=== PATIENT | male | born 1980 | race Caucasian/White ===

== ENCOUNTER 2022-03-16 16:07 | Outpatient (REF) | payer OTHER, SELFPAY ==
[2022-03-16 17:07] LABS: Alanine Aminotransferase 24 U/L (0-40); Albumin Level 4.3 g/dL (3.5-5.0); Alkaline Phosphatase 87 U/L (39-117); Anion Gap 14 (12-20); Aspartate Amino Transferase 20 U/L (5-37); Bilirubin Total 0.6 mg/dL (0.0-1.0); Blood Urea Nitrogen 15 mg/dL (9-16); C Reactive Protein 1.29 mg/dL (< or = 0.50); Carbon Dioxide 26 mmol/L (22-29); Chloride 106 mmol/L (96-108); Cholesterol 260 mg/dL; Estimated Glomerular Filt Rate > 60; Glucose Random 83 mg/dL (60-115); HDL Cholesterol 34 mg/dL; LDL Cholesterol Calculated 203 mg/dl; Potassium 4.4 mmol/L (3.3-5.1); Sodium 142 mmol/L (135-145); Total Protein 6.8 g/dL (6.5-8.0); Triglycerides 117 mg/dL
[2022-03-16 17:28] LABS: TSH reflex Free T4 2.88 uIU/mL (0.32-4.0)
[2022-03-16 17:39] LABS: Vitamin B12 347 pg/mL (200-900)
[2022-03-16 18:13] LABS: Estimated Average Glucose 97 mg/dL
[2022-03-19 19:53] LABS: Immunoglobulin A 266 mg/dL (47-310)
[2022-03-19 21:37] LABS: Transglutaminase IgA <1.0 U/mL
== END 2022-03-16 16:08 | disposition home or self-care (01) ==
LOC: HO.LAB 16:07
PROVIDERS: Visit Provider Internal Medicine
DX: R19.4 Change in bowel habit (principal); R19.7 Diarrhea, unspecified; K21.9 Gastro-esophageal reflux disease without esophagitis; E66.01 Morbid (severe) obesity due to excess calories; I10 Essential (primary) hypertension; K64.9 Unspecified hemorrhoids
CPT/HCPCS: 36415; 80053; 80061; 82607; 82746; 82784; 83036; 84443; 86140; 86364; 99202

== ENCOUNTER 2022-11-13 10:28 | Outpatient (REF) | payer OTHER, SELFPAY ==
--- NOTE | ~2022-11-13 | US_ITS ---
EXAMINATION: US ABDOMEN COMPLETE CLINICAL INFORMATION: Abdominal pain, GERD, change in bowel habits. COMPARISON: None available. TECHNIQUE: Real-time imaging of the abdominal viscera. FINDINGS: PANCREAS: Normal. ABDOMINAL AORTA: The proximal, mid, and distal segments are normal in caliber. INFERIOR VENA CAVA: Visualized portions are normal. LIVER: Diffuse increased echogenicity to the liver parenchyma with focal fatty sparing in the gallbladder fossa. Liver contour is smooth. No focal hepatic lesion. There is no intrahepatic biliary duct dilatation seen. GALLBLADDER: Normal. The gallbladder is physiologically distended without evidence of stones, sludge, polyps, wall thickening or pericholecystic fluid. COMMON BILE DUCT: Normal in caliber measuring 0.2 cm in diameter. RIGHT KIDNEY: Normal. No hydronephrosis. No renal calculi or focal parenchymal lesions. The kidney measures 13.0 cm in maximum dimension. LEFT KIDNEY: Normal. No hydronephrosis. No renal calculi or focal parenchymal lesions. The kidney measures 12.1 cm in maximum dimension. SPLEEN: The spleen measures 14.3 cm in maximum dimension. FREE FLUID: None. ADDITIONAL FINDINGS: Left lower quadrant region of pain was scanned. No sonographic abnormality identified. US/US abdomen complete IMPRESSION: Hepatic steatosis. Mild splenomegaly. No sonographic abnormality in the left lower quadrant where patient has pain
== END 2022-11-13 10:29 | disposition home or self-care (01) ==
LOC: HO.HMGCX 10:28
PROVIDERS: Visit Provider Internal Medicine
DX: R19.4 Change in bowel habit (principal)
CPT/HCPCS: 76700

== ENCOUNTER → 2022-11-19 15:40 | Outpatient (BNVA) | payer OTHER, SELFPAY | PROVIDERS: Visit Provider Internal Medicine | DX: R13.10 Dysphagia, unspecified (principal); R19.4 Change in bowel habit; R14.0 Abdominal distension (gaseous); K64.9 Unspecified hemorrhoids | CPT/HCPCS: 99212 ==

== ENCOUNTER 2022-12-12 11:11 | Outpatient (REF) | payer OTHER, SELFPAY ==
[2022-12-12 12:57] LABS: Hematocrit 42.8 % (42.0-52.0); Hemoglobin 14.8 g/dl (14.0-18.0); Mean Corpuscular HGB Conc 34.6 g/dl (31.0-36.0); Mean Corpuscular Hemoglobin 28.7 pg (27.0-33.0); Mean Corpuscular Volume 83.1 fL (80.0-98.0); Mean Platelet Volume 11.6 fL (9.4-12.4); Platelet Count 216 X10*3/uL (160-400); Red Blood Count 5.15 X10*6/uL (4.60-5.80); Red Cell Distribution Width 12.9 % (11.0-16.0); White Blood Count 9.1 X10*3/uL (4.8-10.8)
[2022-12-12 14:13] LABS: C Reactive Protein 2.99 mg/dL (< or = 0.50)
== END 2022-12-12 11:12 | disposition home or self-care (01) ==
LOC: HO.LAB 11:11
PROVIDERS: PCP Physician Assistant Medical; Visit Provider Internal Medicine
DX: K64.9 Unspecified hemorrhoids (principal)
CPT/HCPCS: 36415; 85027; 86140

== ENCOUNTER 2022-12-17 | Outpatient (REF) | payer OTHER, SELFPAY | END 2022-12-17 00:01 | disposition home or self-care (01) | LOC: HO.LNP | PROVIDERS: Visit Provider Internal Medicine | DX: K64.9 Unspecified hemorrhoids (principal) | CPT/HCPCS: 83993 ==

== ENCOUNTER 2022-12-27 13:15 | Day surgery (SDC) | payer OTHER, SELFPAY ==
--- NOTE | 2022-12-26 10:45 | HO.ANESPROP2 ---
HPI - Anesthesia Eval Consult details Narrative: 42yo M for Upper Endoscopy and Colonoscopy PMFSH Active Problems Active Problems: All Active Problems (Updated 11/20/22 @ 20:59 by Milly Tomas MD) Bloating (Acute) Dysphagia (Acute) Hypertension (Acute) Hemorrhoids (Acute) Morbid obesity (Acute) GERD (gastroesophageal reflux disease) (Acute) Change in bowel habit (Acute) Past Medical History Medical History GERD (gastroesophageal reflux disease) Hypertension Family History Family History Mother Diabetes Cancer Father Pacemaker Cancer Surgical History Surgical History History of esophagogastroduodenoscopy (EGD) Hx of colonoscopy Hx of hernia repair Social History Social History Household Members: Other Alcohol intake: never Patient Tobacco Use Status: Former Tobacco user Substance Use Type: Marijuana Meds Allergies Allergy/AdvReac Type Severity Reaction Status Date / Time No Known Allergies Allergy Verified 12/27/22 13:28 Home Medications Medication Instructions Recorded Confirmed Last Taken Type nortriptyline 10 mg capsule 10 mg PO BEDTIME 12/27/22 12/27/22 Unknown History Exam Exam Date and Time: December 26, 2022 1045 Pertinent Lab Results Pertinent Lab Results: Laboratory Tests 12/12/22 11:37 WBC 9.1 Hgb 14.8 Hct 42.8 Plt Count 216 Assessment and Plan Assessment Anesthesia Assessment: Chart Reviewed
[2022-12-27 13:18] VITALS: BMI 41.0
--- NOTE | 2022-12-27 13:33 | HO.ANESPROP2 ---
[facility] Active Problems Active Problems: All Active Problems (Updated 12/26/22 @ 10:46 by Johnna Young NP) GERD (gastroesophageal reflux disease) (Acute) Bloating (Acute) Dysphagia (Acute) Hemorrhoids (Acute) Morbid obesity (Acute) Change in bowel habit (Acute) Past Medical History Medical History GERD (gastroesophageal reflux disease) Hypertension Functional capacity: independent ambulation Family History Family History Mother Diabetes Cancer Father Pacemaker Cancer Family history of problems with anesthesia: No Surgical History Surgical History History of esophagogastroduodenoscopy (EGD) Hx of colonoscopy Hx of hernia repair History of Problems with Anesthesia: No Social History Social History Household Members: Other Alcohol intake: never Patient Tobacco Use Status: Former Tobacco user Substance Use Type: Marijuana Substance Use Frequency: Occasionally Are you DNR?: No Advance Directives: No Advance Directives Information Provided: Yes Nutrition Risks: No Nutritional Risk Meds Allergies Allergy/AdvReac Type Severity Reaction Status Date / Time No Known Allergies Allergy Verified 12/27/22 13:28 Active Medications: Current Medications Lactated Ringer's (Lr) 1,000 mls @ 100 mls/hr IVCONT .Q10H [facility] Home Medications Medication Instructions Recorded Confirmed Last Taken Type nortriptyline 10 mg capsule 10 mg PO BEDTIME 12/27/22 12/27/22 Unknown History Exam Exam Date and Time: December 27, 2022 1333 Height,Weight and Vital Signs: Height 5 ft 10 in Weight 129.727 kg Airway Mallampati Class: II TM Dist: >3cm Neck ROM: Full Heart: RRR Lungs: CTA Assessment and Plan Assessment Anesthesia Assessment: Anesthesia Plan Discussed and Smoking Cess. Discussed Final Anesthetic Review Family History of Problems with Anesthesia: No History of Problems with Anesthesia: No NPO: Yes ASA Class: III Final Preanesthetic Review: Meds/Allgs Chart Reviewed, Consent Obtained/Reviewed and Anes Risks/Benef Reviewed Patient Risk: Low Procedure Risk: Low Anesthetic Plan Anesthetic Plan: MAC: Disposition: Standard PACU
--- NOTE | 2022-12-27 13:36 | MHC.SHP ---
Pre-Procedural Eval Section A Date of Service: 12/27/22 Section B Chief Complaint: Dysphagia, change in bowel habits Details of Present Illness: Surgical History History of esophagogastroduodenoscopy (EGD) Hx of colonoscopy Hx of hernia repair Family History Mother Diabetes Cancer Father Pacemaker Cancer Present Medications: see Short Stay Collaborative assessment Allergies: Allergies Allergy/AdvReac Type Severity Reaction Status Date / Time No Known Allergies Allergy Verified 12/27/22 13:28 Review of Systems Review of Systems Comment: 10 point ROS unchanged from last evaluation Exam Exam Comment: Gen appear: No acute distress HEENT: no icterus Chest: No overt resp distress Abd: soft, nontender, nondistended Psych: Stable affect, answering questions appropriately Neuro: A/Ox3 noted to move all extremities spontaneously Ext: no peripheral edema Plan Diagnosis/Plan: Unchanged I have reviewed the history and physical and performed a pertinent physical examination on my patient. No changes have occurred unless specified. Time Spent With Patient Time: Total time managing care of this patient today ____ minutes.
[2022-12-27] MEDS: Lactated Ringers 1,000 ML 100 ML IVCONT (13:37)
[2022-12-27 13:39] VITALS: BP 151/94; BP 174/98; PULSE 77; RESP 18; TEMP 36.8; O2SAT 96
--- NOTE | 2022-12-27 14:43 | P.OP_ITS ---
Operative Note Operative Note Date of Service: 12/27/22 Narrative: Procedure:?Esophagogastroduodenoscopy and colonoscopy Endoscopist:?Milly Tomas MD Indication:?Dysphagia, change in bowel habits Anesthesia Provider:?Sarah Thomas MD Anesthesia Type:?MAC Instrument:?Olympus GIF-H190, PCF-H190L EGD Procedure:?? The procedure, indications, preparation and potential complications were reviewed with the patient, who indicated understanding and gave written informed consent to proceed. A physical exam was performed. The endoscope was introduced through the mouth, and advanced to the second part of duodenum. The mucosa was carefully examined on slow withdrawal of the endoscope.? There were no immediate complications.? Patient tolerated the procedure well. EGD Findings:? * Esophagus:? Normal mucosa noted in the entire esophagus.? The Z-line is at 40 cm. Middle and lower esophagus biopsies were taken to rule out eosinophilic esophagitis. * Stomach:? Normal gastric mucosa. Retroflexion was performed in the fundus and showed Hill grade III hiatal hernia. Cold forceps biopsies were taken to rule out H Pylori. * Duodenum:? Normal duodenal mucosa to the extent visualised.? Cold forceps biopsies were taken to rule out celiac disease. Additional intervention:? A soft tip Savary wire was passed through the gastroscope and advanced to the antrum.? The gastroscope was then backed out and Savary Alis bougie was advanced over the guidewire. The esophagus was incrementally dilated from 18 mm to 19 mm. On relook, there was no tear or heme noted. Colonoscopy Procedure:? The patient was then turned for the colonoscopy. A digital rectal exam was performed which was normal.? A distal attachment cap was affixed to the tip of the scope and the colonoscope was then inserted through the anus and advanced through the colon to the cecum at 75 cm. Appendiceal orifice and ileocecal valve were identified. Mucosa was carefully examined under high definition white light as the instrument was slowly withdrawn in a retrograde panoramic fashion. Retroflexion was performed in rectum. The procedure was not difficult. There were no immediate obvious complications. The quality of the prep was BBPS: 3+2+3 = adequate Withdrawal time: 9 minutes Limitations: No limitation. Findings: Mucosa: Normal mucosa to cecum.? Cold forceps biopsies were taken from the right and left side of colon to rule out microscopic colitis. Protruding lesions: * Medium internal hemorrhoids without stigmata of recent bleeding. Impression: 1. Normal esophageal mucosa (biopsy, dilation) 2. Normal stomach mucosa (biopsy) 3. Hiatal hernia 4. Normal duodenum (biopsy) 5. Normal colon and terminal ileum mucosa (biopsy) 6. Internal hemorrhoids Recommendations:?? * Await pathology results.? * Repeat colonoscopy for asymptomatic colon cancer screening in 10 years. * No intraluminal source for patient's symptoms of LLQ pain and dysphagia. * Barium swallow pending. MRI pelvis being ordered by his PCP per patient's report.
[2022-12-27 15:42] VITALS: BP 148/92; PULSE 75; RESP 16; TEMP 36.4; O2SAT 95
[2022-12-27 15:57] VITALS: BP 141/84; PULSE 66; RESP 16; TEMP 36.1; O2SAT 99
== END 2022-12-27 16:04 | disposition home or self-care (01) ==
PROVIDERS: PCP Physician Assistant Medical; Visit Provider Internal Medicine
PROC: (CPT 45380; principal; 2022-12-27 15:30)
DX: R19.4 Change in bowel habit (principal); K64.8 Other hemorrhoids; R14.0 Abdominal distension (gaseous); R13.10 Dysphagia, unspecified; K29.50 Unspecified chronic gastritis without bleeding; K21.9 Gastro-esophageal reflux disease without esophagitis; K44.9 Diaphragmatic hernia without obstruction or gangrene; I10 Essential (primary) hypertension; E66.01 Morbid (severe) obesity due to excess calories; Z68.41 Body mass index [BMI] 40.0-44.9, adult; Z79.899 Other long term (current) drug therapy; F12.90 Cannabis use, unspecified, uncomplicated; Z87.891 Personal history of nicotine dependence
CPT/HCPCS: 45380; 43248; 43239; 88305; 88342; C1769; J2250

== ENCOUNTER → 2022-12-27 13:15 | Outpatient (BNV) | payer OTHER, SELFPAY | PROVIDERS: PCP Physician Assistant Medical; Visit Provider Internal Medicine | DX: R13.10 Dysphagia, unspecified (principal); R19.4 Change in bowel habit; K64.8 Other hemorrhoids | CPT/HCPCS: 43248; 45380 ==

== ENCOUNTER 2022-12-31 09:17 | Outpatient (AMB) | payer OTHER, SELFPAY ==
--- NOTE | 2022-12-31 09:18 | A.OFFVIS_ITS ---
Intake Intake Visit Reasons: 6 week follow up Intake Note: Ivan presents as a telehealth today as a 6 week follow up. CC: results to the BA swallow, He knows were okay. He did lab work and needs results. Dialysis Technician Required: No Allergies No Known Allergies Allergy (Verified 12/27/22 13:28) HPI HPI Comments History of Present Illness Details This is a 41-year-old gentleman with past medical history of obesity, hypertension, who here for follow up. 03/16/22: -heartburn: Patient states that for many years, he has severe burning sensation retrosternally that is most severe at nighttime when he is going to bed. This is also associated with nausea. No vomiting. Denies any difficulty or painful swallowing. Was prescribed omeprazole by his previous traffic court magistrate at [facility] that has been working well for him, but has not been able to taper it off. -abdominal pain: This is often triggered in the morning either by food or after a bowel movement. Describes a sensation on the spectrum of feeling like a heavy weight in his lower abdomen to dull generalized discomfort. Thinks it may have started after he had his left inguinal hernia repair, specially as the pain also sometimes radiates to his left groin. -alternating bowel habits with rectal discomfort: This has been going on for at least 2-3 years. Bowel movements range from having 1 bowel movement every 2-3 days to having 3-4 bowel movements a day. Of note, his abdominal pain is sometimes triggered or worsened by the bowel movement, and sometimes relieved. Denies any maroon stools or melena, but has occasionally seen blood on wiping. In addition, he also notices rectal discomfort and pain specially on setting and bowel defecation. He can also feel his hemorrhoids prolapsed out. Reports itching around the anal area as well. One of his best friend from rectal cancer 2 years ago, and patient states he had very similar symptoms so he has been quite concerned about himself. He had a colonoscopy at [facility] for these symptoms as well, and was told that he has hemorrhoids but that it was otherwise normal. Patient has not seen a primary care provider in at least 2-3 years. 11/19/22: Missed appt in Nov due to his father's health. Since then has established with PCP. Reports having persistent LLQ pain and was evaluated for ? hernia as well. Assoc with significant rectal pressure even when he is not having a BM. Again, he is mainly concerned due to his friend's hx of rectal adenoca. Additionally he also reports significant bloating which is not necessarily related to meals, accompanied by loose stools. Right before the visit ended, he also brought up intermittent sensation of dry throat and food getting stuck in upper throat crispin right he smokes marijuana. No change in appetite, no odynophagia, no UNINTENTIONAL weight loss. Records from [facility] reviewed. EGD/colo 2020 path available and benign in duo. Colon bx were not taken. Hyperplastic polyp. 12/27/22: EGD/colo: Impression: 1. Normal esophageal mucosa (biopsy, dilation) 2. Normal stomach mucosa (biopsy) 3. Hiatal hernia 4. Normal duodenum (biopsy) 5. Normal colon and terminal ileum mucosa (biopsy) 6. Internal hemorrhoids Path: pending. 12/31/22: Seen as video televisit per patient's request. Reports continued sensation of something stuck on left side of his throat but no pain or discomfort swallowing. Does not think empiric dilation made much di fference in his sx. Barium swallow 12/12/22 ([facility] Henry) reviewed and normal. In terms of lower GI sx, feels that abd cramping and bloating better with nortriptyline. Not stressing about possible colon/rectal cancer has also helped and not having the runs anymore. He also ran out of omeprazole and got severe heartburn within three days prompting him to buy it OTC. Reviewed that path still pending from EGD/colo and will call him for any actionable findings. [facility] Medical History GERD (gastroesophageal reflux disease) Hypertension Surgical History History of esophagogastroduodenoscopy (EGD) Hx of colonoscopy Hx of hernia repair Family History Mother Diabetes Cancer Father Pacemaker Cancer Social History Household Members: Other Alcohol intake: never Patient Tobacco Use Status: Former Tobacco user Substance Use Type: Marijuana Physical Exam video visit: NAD, nontoxic appearing no overt resp distress no dysarthria or dysphasia Assessment & Plan Assessment & Plan (1) Change in bowel habit: Code(s): R19.4 - Change in bowel habit (2) Bloating: Code(s): R14.0 - Abdominal distension (gaseous) (3) Hemorrhoids: Code(s): K64.9 - Unspecified hemorrhoids (4) Globus sensation: Code(s): R09.89 - Other specified symptoms and signs involving the circulatory and respiratory systems Plan As previously mentioned has multiple DGBI sx including globus sensation, functional dyspepsia, bloating and IBS. Rifaximin trial (for SIBO and IBS-D) was not too promising. Has been started on nortriptyline through PCP though which seems to be helping. 1. Rebound heartburn: Educated to taper off PPI gradually since hes been on PPI x 3 years. No endoscopic evidence of overt esophagitis but path pending. - Omeprazole 40 daily to be tapered off 2. Globus sensation 3. IBS-D Reassured that barium swallow and EGD normal. No evidence of stricture/stenosis. Similarly no endoscopic colitis noted. Path pending for ?microscopic colitis. - Already on nortriptyline 10 - can be uptitrated to 20 or even 30mg max over the next few weeks 4. Pelvic pain Reports improvement with reassurance after endoscopically normal colo. - Awaiting MRI pelvis through PCP Path pending, pt will be called back for actionable findings, otherwise follow up PRN Medications: Refilled omeprazole 40 mg PO DAILY 28 caps 0RF Telehealth Telehealth Location of provider rendering services: practice address Location of patient: address on file Patient Identification confirmed using: Name, : Yes Telehealth method: video Patient verbally consented to treatment: Yes Patient verbally consented to billing insurance company: Yes Patient informed of any privacy concerns related to visit: Yes Minutes spent on Phone/Video with Pt.: 12 Coding Level of Care Code Tele Est Pt Level 4 (86466) Diagnoses Change in bowel habit R19.4 Bloating R14.0 Hemorrhoids K64.9 Globus sensation R09.89
== END 2022-12-31 09:40 | disposition home or self-care (01) ==
LOC: HO.HGI 09:17
PROVIDERS: PCP Physician Assistant Medical; Visit Provider Internal Medicine
DX: R19.4 Change in bowel habit (principal); R14.0 Abdominal distension (gaseous); K64.9 Unspecified hemorrhoids; R09.89 Other specified symptoms and signs involving the circulatory and respiratory systems
CPT/HCPCS: 99214

== ENCOUNTER → 2022-12-31 09:17 | Outpatient (BNVA) | payer OTHER, SELFPAY | PROVIDERS: PCP Physician Assistant Medical; Visit Provider Internal Medicine ==

== ENCOUNTER 2023-03-27 14:58 | Outpatient (AMB) | payer OTHER, SELFPAY ==
--- NOTE | 2023-03-27 15:09 | MHC.OFFVIS ---
Intake Vital Signs 03/27/23 15:10 Height 5 ft 10 in Weight 286 lb 9.615 oz BMI 41.1 BP 135/80 Blood Pressure Location Lt brachial Position Sitting Pulse 90 Intake Visit Reasons: colitis Intake Note: Ivan presents in the office as a follow up for colitis. CC: He is having issues with his lower abdomen. He states he is not sure if this is GI related. He did get told he has colitis. He was pooping blood one day and now he states that he is back here. He states that the blood was just that one day and has not happened since. Allergies No Known Allergies Allergy (Verified 03/27/23 15:11) HPI HPI Comments History of Present Illness Details This is a 41-year-old gentleman with past medical history of obesity, hypertension, who here for follow up. 03/16/22: -heartburn: Patient states that for many years, he has severe burning sensation retrosternally that is most severe at nighttime when he is going to bed. This is also associated with nausea. No vomiting. Denies any difficulty or painful swallowing. Was prescribed omeprazole by his previous special officer automat at [facility] that has been working well for him, but has not been able to taper it off. -abdominal pain: This is often triggered in the morning either by food or after a bowel movement. Describes a sensation on the spectrum of feeling like a heavy weight in his lower abdomen to dull generalized discomfort. Thinks it may have started after he had his left inguinal hernia repair, specially as the pain also sometimes radiates to his left groin. -alternating bowel habits with rectal discomfort: This has been going on for at least 2-3 years. Bowel movements range from having 1 bowel movement every 2-3 days to having 3-4 bowel movements a day. Of note, his abdominal pain is sometimes triggered or worsened by the bowel movement, and sometimes relieved. Denies any maroon stools or melena, but has occasionally seen blood on wiping. In addition, he also notices rectal discomfort and pain specially on setting and bowel defecation. He can also feel his hemorrhoids prolapsed out. Reports itching around the anal area as well. One of his best friend from rectal cancer 2 years ago, and patient states he had very similar symptoms so he has been quite concerned about himself. He had a colonoscopy at [facility] for these symptoms as well, and was told that he has hemorrhoids but that it was otherwise normal. Patient has not seen a primary care provider in at least 2-3 years. 11/19/22: Missed appt in Nov due to his father's health. Since then has established with PCP. Reports having persistent LLQ pain and was evaluated for ? hernia as well. Assoc with significant rectal pressure even when he is not having a BM. Again, he is mainly concerned due to his friend's hx of rectal adenoca. Additionally he also reports significant bloating which is not necessarily related to meals, accompanied by loose stools. Right before the visit ended, he also brought up intermittent sensation of dry throat and food getting stuck in upper throat crispin right he smokes marijuana. No change in appetite, no odynophagia, no UNINTENTIONAL weight loss. Records from [facility] reviewed. EGD/colo 2020 path available and benign in duo. Colon bx were not taken. Hyperplastic polyp. 12/27/22: EGD/colo: Impression: 1. Normal esophageal mucosa (biopsy, dilation) 2. Normal stomach mucosa (biopsy) 3. Hiatal hernia 4. Normal duodenum (biopsy) 5. Normal colon and terminal ileum mucosa (biopsy) 6. Internal hemorrhoids Path: A. Duodenum, biopsy: Duodenal mucosa with preserved villi and no specific change. B. Stomach, random, biopsy: Gastric antral and body mucosa with mild reactive changes and focal minimal chronic inactive inflammation; negative for H pylori, intestinal metaplasia and dysplasia. C. Esophagus, lower, biopsy: Squamous mucosa with no specific change; no columnar mucosa present; no evidence of eosinophilic esophagitis. D. Esophagus, middle, biopsy: Squamous mucosa with no specific change; no columnar mucosa present; no evidence of eosinophilic esophagitis. E. Colon, right, biopsy: Colonic mucosa with no specific change; no evidence of microscopic colitis. F. Colon, left, biopsy: Colonic mucosa with no specific change; no evidence of microscopic colitis 12/31/22: Seen as video televisit per patient's request. Reports continued sensation of something stuck on left side of his throat but no pain or discomfort swallowing. Does not think empiric dilation made much difference in his sx. Barium swallow 12/12/22 ([facility]) reviewed and normal. In terms of lower GI sx, feels that abd cramping and bloating better with nortriptyline. Not stressing about possible colon/rectal cancer has also helped and not having the runs anymore. He also ran out of omeprazole and got severe heartburn within three days prompting him to buy it OTC. Reviewed that path still pending from EGD/colo and will call him for any actionable findings. 03/27/23: Pt requested a follow up after he was seen in ER. 2 weeks ago he had an episode of abd cramping and urge to defecate but was not able to have a BM and therefore gave himself an enema. Shortly after developed severe cramping, nausea chills and sweating and when he passed a BM he noticed scant amount of blood in his stool. Went to the ER and was told he has colitis based on CT scan at [facility]. CT imaging not available but report pertinent for L sided colitis. Currently, pt reports unchanged baseline sx of intermittent abd discomfort with soft stools that then resolve the cramping. He has been seen by Urology for pelvic pain secondary to prostadynia vs proctalgia fugax and has been recommended pelvic floor rehab. He also wonders if he needs to be seen by a surgeon for known hemorrhoids. [facility] Medical History Hypertension GERD (gastroesophageal reflux disease) Surgical History Hx of hernia repair History of esophagogastroduodenoscopy (EGD) Hx of colonoscopy Family History Mother Diabetes Cancer Father Pacemaker Cancer Social History Household Members: Other Alcohol intake: never Patient Tobacco Use Status: Former Tobacco user Substance Use Type: Marijuana Review of Systems Const All systems reviewed & are unremarkable except as noted in HPI and below Physical Exam Vital Signs: Last Vital Signs Pulse 90 03/27/23 15:10 BP 135/80 03/27/23 15:10 BMI result Body Mass Index 41.1 Gen appear: No acute distress, with obesity HEENT: no icterus, no cervical lymphadenopathy Chest: No overt resp distress CVS: S1/S2, regular Abd: soft, nontender, nondistended Psych: Stable affect, answering questions appropriately Neuro: A/Ox3 noted to move all extremities spontaneously Ext: no peripheral edema, chronic venous stasis changes Assessment & Plan Assessment & Plan (1) Colon wall thickening: Code(s): K63.9 - Disease of intestine, unspecified (2) Hemorrhoids: Code(s): K64.9 - Unspecified hemorrhoids (3) Irritable bowel syndrome (IBS): Code(s): K58.9 - Irritable bowel syndrome without diarrhea Plan 42y.o M with multiple DGBI sx including globus sensation, functional dyspepsia, bloating and IBS who had been doing well on nortriptyline through PCP is here after [facility] visit for ? colitis. Reviewed with the pt that given distribution and presentation suspect may have been enema related. Colon ischemia is an uncommon but known complication of enema administration. Other differentials include infectious colitis. He was reassured that based on endoscopic work up done earlier this year no evidence of chronic inflammatory disease. Was also informed that sometimes clinical s/sx for IBD may appear much sooner than endoscopic/histological appearance and to call us for any persistent change in bowel habits compared to his baseline. In terms of hemorrhoids, currently does not report any sx of itching, pain, bleeding. Requests a back up Rx for hydrocortisone to be used if needed. Was advised to call us if become symptomatic despite medical management in which case a referral to surgery can be considered. He knows to call our office for any questions or concerns that may arise in future. Medications: Refilled lidocaine HCl-hydrocortison ac 3-0.5 % 1 appl OH BEDTIME 14 days 7 grams 0RF Coding Level of Care Code Est Pt Level 4 (09845) Diagnoses Colon wall thickening K63.9 Hemorrhoids K64.9 Irritable bowel syndrome (IBS) K58.9
[2023-03-27 15:10] VITALS: BP 135/80; PULSE 90; BMI 41.1
== END 2023-03-27 16:54 | disposition home or self-care (01) ==
PROVIDERS: PCP Physician Assistant Medical; Visit Provider Internal Medicine
DX: K63.9 Disease of intestine, unspecified (principal); K64.9 Unspecified hemorrhoids; K58.9 Irritable bowel syndrome, unspecified
CPT/HCPCS: 99214

== ENCOUNTER → 2023-03-27 14:58 | Outpatient (BNVA) | payer OTHER, SELFPAY | PROVIDERS: PCP Physician Assistant Medical; Visit Provider Internal Medicine | DX: K62.9 Disease of anus and rectum, unspecified (principal); K64.9 Unspecified hemorrhoids; K58.9 Irritable bowel syndrome, unspecified | CPT/HCPCS: 99212 ==

== ENCOUNTER 2023-11-18 09:33 | Outpatient (AMB) | payer OTHER, SELFPAY ==
--- NOTE | 2023-11-18 09:28 | A.OFFPC_ITS ---
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 CPE Instructional Design Specialist Required: No Allergies No Known Allergies Allergy (Verified 11/18/23 09:39) Tobacco use date assessed: 11/18/23 Dental Screening Dental Screen Date: 11/18/23 Did you have a dental visit in the last 12 months?: Yes Did you have a dental problem in the last 6 months where you did not have access to dental care?: No Was dental information given to patient?: Patient has dentist HPI HPI Comments History of Present Illness Details This is a 43-year-old male with a past medical history of colitis, colon polyps, hepatic steatosis, GERD, hypercholesterolemia, hypertension, IBS, labral tear of the left hip, chronic pelvic pain and obesity presenting to [facility]. He transferred from [facility]. Chronic pelvic pain/hip pain/back pain-the patient had an extensive evaluation with multiple specialists. Dr. Hussein ordered an MRI of his left hip which showed degenerative blunting/tear at the anteromedial and anterior lateral labrum. He continues physical therapy. He saw HECTOR 1-2 months ago and had a cortisone injection. He notes significant improvement in his symptoms since then. He has a follow-up scheduled with Orthopedics. His job is very physical. 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 He continues to have pain in his back. He says there is a tender area in the mid back. He estimates he has had back pain for about 6 months. Patient says he has pain in the middle and lower back that radiates to his hip and groin and sometimes into the buttocks. He also notes numbness and tingling on the outside of the left leg and tingling in his 2nd toes which comes and goes. He is in physical therapy. He had an x-ray of his lower back. He tried cyclobenzaprine, meloxicam, ibuprofen. He is on nortriptyline for chronic pain and IBS. Colon polyps-he had a colonoscopy in 05/22/2020 and is due in 05/22/2030. He has a history of GERD and IBS. Patient says he is still doing well on nortriptyline. He takes omeprazole 40 mg every 2-3 days. He has an appointment with a new manager retail sales at [facility] in December. He is transferring care from [facility]. Anxiety-patient says he has a history of anxiety since his 20s. He has obsessive-compulsive tendencies by his own report. He participates in rituals like turning lights which is on and off repetitively. He gets very frustrated. He does not feel depressed. Patient says his mother had severe OCD. He smokes marijuana which he says helps with anxiety and chronic pain. Obesity-he continues his efforts at weight loss. He is down to 284 lb. We discussed trying a GLP 1 before I left the last practice. He would like to do this. [facility] Medical History (Updated 11/18/23 @ 10:51 by IRVING Abbasi) Chronic back pain Obesity Anxiety Chronic left hip pain Chronic pelvic pain in male Hypertension GERD (gastroesophageal reflux disease) Surgical History Hx of hernia repair History of esophagogastroduodenoscopy (EGD) Hx of colonoscopy Family History Mother Diabetes Cancer Father Pacemaker Cancer Social History (Updated 11/18/23 @ 09:46 by Sarai Morillo) Household Members: Other Housing: House Alcohol intake: never Patient Tobacco Use Status: Former Tobacco user Tobacco use type: Cigarette Cigarette Packs Per Day: 1 Years Smoked: 15 e-Cigarette/Vaping Use: Never Used Second Hand Smoke Exposure: No Substance Use Type: Marijuana service: No Current occupational status: unemployed 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 How often do you have a drink containing alcohol?: Never 3. How often do you have six or more drinks on one occasion?: Never (once a year) Total Score: 0 Review of Systems Const Details: Constitutional: No unexplained weight loss, fever, chills. Eyes: No vision changes, blurry vision, double vision. Respiratory: No shortness of breath Cardiovascular: No chest pain Gastrointestinal: No vomiting or diarrhea. No blood in stool. Neurologic: No headache, dizziness, syncope Psychiatric: No SI/HI. Physical exam (Primary Care) Vital Signs: Last Vital Signs Temp 98.1 F 11/18/23 09:48 Pulse 68 11/18/23 09:48 Resp 16 11/18/23 09:48 BP 118/88 11/18/23 09:53 Pulse Ox 99 11/18/23 09:48 Oxygen Delivery Method Room Air 11/18/23 09:48 BMI result Body Mass Index 40.0 Tobacco/Smoking Status: Tobacco use Status Tobacco use date assessed 11/18/23 11/18/23 09:47 Patient Tobacco Use Status Former Tobacco user 11/18/23 09:46 Tobacco use type Cigarette 11/18/23 09:47 e-Cigarette/Vaping Use Never Used 11/18/23 09:47 Const Other: Constitutional: Alert, in no distress. Head: Normocephalic. Eyes: Pupils are equal, round and reactive to light. Neck: Supple, Full range of motion. No lymphadenopathy. Respiratory: Clear to auscultation. Cardiovascular: S1 S2 regular. No murmurs. Gastrointestinal: Abdomen soft, non-tender, non-distended. Normal bowel sounds. No palpable masses. Genitourinary: No costovertebral angle tenderness. Musculoskeletal: Pain with thoracolumbar flexion and extension. Midline tenderness in the thoracic spine. Negative straight leg raises bilaterally. Patient has decreased sensation of the left lateral distal thigh. Extremities: Warm and well perfused. No clubbing, cyanosis or edema. Psychiatric: Normal mood and affect Assessment and Plan Assessment & Plan (1) Chronic left hip pain: Comment: labral tear Code(s): M25.552 - Pain in left hip; G89.29 - Other chronic pain Plan: Interval improvement status post cortisone injection. Follow up with Orthopedics as planned. Continue physical therapy. (2) Chronic pelvic pain in male: Comment: Patient underwent urologic evaluation. Continue nortriptyline and physical therapy. Code(s): R10.2 - Pelvic and perineal pain; G89.29 - Other chronic pain (3) Chronic back pain: Comment: Patient has ongoing pain despite physical therapy, activity modification (used up all FMLA) and medications. Ordered MRI for further evaluation. The patient will be tried on Cymbalta. We discussed black box warning and side effects. We discussed it may improve both chronic pain and anxiety. Code(s): M54.9 - Dorsalgia, unspecified; G89.29 - Other chronic pain Qualifiers: Back pain location: low back pain Back pain laterality: bilateral Sciatica presence: without sciatica Qualified Code(s): M54.50 - Low back pain, unspecified; G89.29 - Other chronic pain (4) GERD (gastroesophageal reflux disease): Code(s): K21.9 - Gastro-esophageal reflux disease without esophagitis Qualifiers: Esophagitis presence: without esophagitis Qualified Code(s): K21.9 - Gastro-esophageal reflux disease without esophagitis Plan: Avoid triggers, continue efforts at weight loss and continue PPI. Follow up with Gastroenterology as planned. (5) Irritable bowel syndrome (IBS): Code(s): K58.9 - Irritable bowel syndrome without diarrhea (6) Anxiety: Comment: Referred to behavioral health. Trial of Cymbalta as above. Code(s): F41.9 - Anxiety disorder, unspecified (7) Obesity: Comment: Check TSH and lipid profile. Congratulated on weight loss. The patient denies contraindications to GLP-1 receptor agonist. We reviewed the FDA preliminary evaluation that has not found evidence that these medications cause suicidal thoughts or actions, but the investigation is ongoing. If the patient develops these symptoms they will stop taking the medication immediately and contact the office. We reviewed more common side effects such as bloating, constipation, nausea and vomiting. We reviewed the administration and dosing schedule. The patient is instructed to continue lifestyle modifications and efforts at weight loss. We discussed how weight loss can cause physiologic changes in the body and that some patients may experience hair thinning/hair loss. We also discussed that the medications are frequently backordered which may result in a delayed start or disruption when taking the medication. The patient understands it is their responsibility to contact alternative pharmacies if the medication is not available at their usual pharmacy. The patient is also made aware that insurance may deny coverage for the medication despite prior authorization. Code(s): E66.9 - Obesity, unspecified Qualifiers: Obesity classification: adult class 3 (BMI >= 40) Obesity type: due to excess calories Serious obesity comorbidity presence: without serious comorbidity Body mass index: BMI 40.0-44.9 Qualified Code(s): E66.01 - Morbid (severe) obesity due to excess calories; Z68.41 - Body mass index [BMI] 40.0- 44.9, adult Orders: Orders TSH reflex Free T4 Today E66.9 - Obesity, unspecified, F41.9 - Anxiety disorder, unspecified, G89.29 - Other chronic pain, R10.2 - Pelvic and perineal pain MR lumbar spine wo con Today G89.29 - Other chronic pain, M54.50 - Low back pain, unspecified Lipid Panel Today E66.9 - Obesity, unspecified, F41.9 - Anxiety disorder, unspecified, G89.29 - Other chronic pain, R10.2 - Pelvic and perineal pain Comprehensive Met. Panel Today E66.9 - Obesity, unspecified, F41.9 - Anxiety disorder, unspecified, G89.29 - Other chronic pain, R10.2 - Pelvic and perineal pain Prostate Specific Antigen Scr Today E66.9 - Obesity, unspecified, F41.9 - Anxiety disorder, unspecified, G89.29 - Other chronic pain, R10.2 - Pelvic and perineal pain, Z12.5 - Encounter for screening for malignant neoplasm of prostate MR thoracic spine wo con Today M54.6 - Pain in thoracic spine Referrals Psychology Referral F41.9 - Anxiety disorder, unspecified Medications: New duloxetine (Cymbalta) 30 mg PO DAILY 30 caps 1RF semaglutide (weight loss) (Wegovy) 0.25 mg (0.5 mL) subcut Q7D 2 mL 0RF Coding Level of Care Code Est Pt Level 5 (59089) Complex EM visit Add On G2211 Diagnoses Chronic left hip pain M25.552; G89.29 Chronic pelvic pain in male R10.2; G89.29 Chronic bilateral low back pain without sciatica M54.50; G89.29 Back pain location: low back pain Back pain laterality: bilateral Sciatica presence: without sciatica Gastroesophageal reflux disease without esophagitis K21.9 Esophagitis presence: without esophagitis Irritable bowel syndrome (IBS) K58.9 Anxiety F41.9 Class 3 severe obesity due to excess calories without serious comorbidity with body mass index (BMI) of 40.0 to 44.9 in adult E66.01; Z68.41 Obesity classification: adult class 3 (BMI >= 40) Obesity type: due to excess calories Serious obesity comorbidity presence: without serious comorbidity Body mass index: BMI 40.0-44.9 Time Spent (min) 45 Comment 45 minutes were spent reviewing/updating the chart, seeing the patient and discussing plan
[2023-11-18 09:48] VITALS: BP 148/84; PULSE 68; RESP 16; TEMP 36.7; O2SAT 99; BMI 40.0
[2023-11-18 09:53] VITALS: BP 118/88
== END 2023-11-18 10:34 | disposition home or self-care (01) ==
PROVIDERS: PCP Physician Assistant Medical; Visit Provider Physician Assistant Medical
DX: M25.552 Pain in left hip (principal); G89.29 Other chronic pain; E66.01 Morbid (severe) obesity due to excess calories; Z68.41 Body mass index [BMI] 40.0-44.9, adult; R10.2 Pelvic and perineal pain; M54.50 Low back pain, unspecified; K21.9 Gastro-esophageal reflux disease without esophagitis; K58.9 Irritable bowel syndrome, unspecified; F41.9 Anxiety disorder, unspecified
CPT/HCPCS: 99215; G2211

== ENCOUNTER 2023-11-23 17:05 | Emergency (ER) | payer OTHER, SELFPAY ==
[2023-11-23 17:08] VITALS: BP 149/100; PULSE 86; RESP 18; TEMP 37.4; O2SAT 99; BMI 38.7
--- NOTE | 2023-11-23 17:08 | ED_ITS ---
HPI - General Adult General Chief complaint: Upper Respiratory Symptoms Stated complaint: headache, fever ? new medication Time Seen by Provider: 11/23/23 17:19 Source: patient and family Mode of arrival: ambulatory Limitations: no limitations History of Present Illness ED Provider: Kady Steen APRN HPI narrative: 43-year-old male here with complaints of 2 days of sore throat, cough, body aches, headache, fever with max temp of 100.4 degrees, chills. Patient denies any chest pain, shortness of breath, skin rash, neck pain, neck stiffness, vomiting, diarrhea, abdominal pain. No recent travel or sick contact. Patient reports 4 days ago he started Cymbalta and feels like this may be contributing to his symptoms. He did speak to his on-call prescribe her who recommended he continue the medication for at least 2 weeks. Of note, he also reports irritability since starting the cymbalta. Related Data Home Medications ?Medication ?Instructions ?Recorded ?Confirmed nortriptyline 10 mg capsule 10 mg PO BEDTIME 12/27/22 12/27/22 multivitamin 1 tab PO DAILY 11/18/23 Previous Rx's ?Medication ?Instructions ?Recorded omeprazole 40 mg capsule,delayed 40 mg PO DAILY #28 caps 05/24/23 release duloxetine 30 mg capsule,delayed 30 mg PO DAILY #30 caps 11/18/23 release (Cymbalta) semaglutide (weight loss) 0.25 0.25 mg (0.5 mL) subcut Q7D #2 mL 11/18/23 mg/0.5 mL subcutaneous pen injector (Wegovy) Allergies Allergy/AdvReac Type Severity Reaction Status Date / Time No Known Allergies Allergy Verified 11/23/23 17:10 Review of Systems Review of Systems: Yes all other systems are reviewed and are negative Constitutional: Constitutional: Reports no additional constitutional complaints, Reports body ache(s), Reports chills, Reports fever(s), Reports headache(s) and Denies weakness Eyes: Eyes: Reports no additional eye complaints and Denies change in vision ENT: Reports system reviewed and no additional complaints, except as documented, Denies dizziness, Reports headache(s), Denies nasal congestion, Denies nasal discharge, Denies neck pain and Reports sore throat Cardiovascular: Cardiovascular: Reports no additional cardiovascular complaints, Denies chest pain, Denies leg edema and Denies dyspnea Respiratory: Respiratory: Reports no additional respiratory complaints, Reports cough and Denies dyspnea Gastrointestinal: Gastrointestinal: Reports no additional gastrointestinal complaints, Denies abdominal pain, Denies diarrhea, Denies nausea and Denies vomiting Genitourinary: Genitourinary: Denies urinary incontinence Musculoskeletal: Musculoskeletal: Reports no additional musculoskeletal complaints, Denies back pain, Denies arthralgias, Denies joint swelling, Denies neck pain, Denies numbness and Denies tingling Integumentary/Breasts: Skin/Breast: Reports system reviewed and no additional complaints, except as docu and Denies rash Neurologic: Reports system reviewed and no additional complaints, except as documented, Denies dizziness, Reports headache(s), Denies numbness, Denies tingling and Denies weakness PMFSH Past Medical History Attestation statement: The following information was validated with the patient. Source: old records reviewed and nursing notes reviewed Medical History Chronic back pain Obesity Anxiety Chronic left hip pain Chronic pelvic pain in male Hypertension GERD (gastroesophageal reflux disease) Surgical History Hx of hernia repair History of esophagogastroduodenoscopy (EGD) Hx of colonoscopy Family History Family History Mother Diabetes Cancer Father Pacemaker Cancer Social History Social History Household Members: Other Housing: House Alcohol intake: never Patient Tobacco Use Status: Former Tobacco user Tobacco use type: Cigarette Cigarette Packs Per Day: 1 Years Smoked: 15 e-Cigarette/Vaping Use: Never Used Second Hand Smoke Exposure: No Substance Use Type: Marijuana Advance Directives: No Advance Directives Information Provided: No service: No Current occupational status: unemployed 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 Patient is a 43-year-old male presenting to the ED with complaint of sore throat, headache, body aches, congestion, cough, and fever since yesterday afternoon. Also recently started duloxetine on Saturday, unsure if sxs are related. Plan: viral and strep swabs Medications Administered Discontinued Medications Generic Name Dose Route Start Last Admin Trade Name Freq PRN Reason Stop Dose Admin Ibuprofen 600 mg 11/23/23 18:03 11/23/23 18:22 Ibuprofen 600 Mg Tablet PO 11/23/23 18:04 600 mg ONCE ONE Administration Medical Decision Making Medical Decision Making [facility] Narrative: 43-year-old male here with complaints of 2 days of sore throat, cough, body aches, headache, fever with max temp of 100.4 degrees, chills. Patient denies any chest pain, shortness of breath, skin rash, neck pain, neck stiffness, vomiting, diarrhea, abdominal pain. No recent travel or sick contact. Patient reports 4 days ago he started Cymbalta and feels like this may be contributing to his symptoms. He did speak to his on-call prescribe her who recommended he continue the medication for at least 2 weeks. Of note, he also reports ir ritability since starting the cymbalta. Exam is benign. Vitals are stable. Will send testing for strep, flu, COVID, RSV, will provide analgesia Differential Diagnosis Differential Diagnoses: The differential diagnosis associated with the presentation includes viral syndrome, influenza, strep pharyngitis, otitis media less likely med reaction, meningitis, encephalitis, RPA, LEAD ACCOUNTANT, epiglottitis, Catracho's angina, acute abdomen Admission/Observation Consideration of admission/observation: Escalation of care including admission/observation considered less likely med reaction, meningitis, encephalitis, RPA, LEAD ACCOUNTANT, epiglottitis, Catracho's angina, acute abdomen requiring advanced imaging, and or admission for further management Lab Data [facility] Lab Attestation statement: I reviewed the patient's lab results. Labs: Lab Results 11/23/23 Range/Units 17:16 Influenza Type A (PCR) NEGATIVE (Negative) Influenza Type B (PCR) NEGATIVE (Negative) RSV RNA Qual (PCR) NEGATIVE (Negative) SARS-CoV-2 RNA (RT-PCR) NEGATIVE (Negative) S. pyogenes GrpA ANGELICA Negative (Negative) Independent Historian Clinical information obtained from an independent historian. History obtained from or confirmed by: Spouse Tests considered The following testing was considered but not selected: less likely med reaction, meningitis, encephalitis, RPA, LEAD ACCOUNTANT, epiglottitis, Catracho's angina, acute abdomen requiring advanced imaging no hypoxia or tachypnea to suggest need for chest x-ray Prescription Management I considered prescription management with: Pain Medication, Antiviral and Antibiotic Discharge Plan Discharge Clinical Impression: Viral infection Patient Disposition: Home, Self-Care Instructions: Viral Syndrome (ED) Additional Instructions: Testing for strep, flu, covid, rsv are negative Take motrin or tylenol for pain or fever as needed Follow-up with your primary care doctor for any continued symptoms Prescriptions: No Action omeprazole 40 mg capsule,delayed release(DR/EC) 40 mg PO DAILY Qty: 28 2RF nortriptyline 10 mg capsule 10 mg PO BEDTIME multivitamin Tablet 1 tab PO DAILY duloxetine [Cymbalta] 30 mg capsule,delayed release(DR/EC) 30 mg PO DAILY Qty: 30 1RF Wegovy 0.25 mg/0.5 mL pen injector 0.25 mg subcut Q7D Qty: 2 0RF Referrals: Glendy Dunne PA [Primary Care Provider] - 10 days Stand Alone Forms: Work/School Release Print Language: Bermudian
[2023-11-23 17:31] LABS: IDNOW Serial# 08D9AD1C; Strep A Nucleic Acid Negative (Negative)
[2023-11-23 18:18] LABS: Influenza A PCR NEGATIVE (Negative); Influenza B PCR NEGATIVE (Negative); Resp Syncy Virus RNA Qual PCR NEGATIVE (Negative); SARS COV2 PCR INHOUSE NEGATIVE (Negative)
[2023-11-23] MEDS: Ibuprofen 600 MG TABLET PO (18:22)
[2023-11-23 18:26] VITALS: BP 130/78; PULSE 86; RESP 20; TEMP 36.8; O2SAT 98
[2023-11-23 18:29] VITALS: BP 130/78; PULSE 86; RESP 20; TEMP 36.8; O2SAT 98
--- OUTSIDE RECORDS SUMMARY | 2023-11-28 07:11 | XMS_ITS | Continuity of Care Document ---
Author Organization [facility] ter Address [address] [place] [id number]- Care Team Providers Care Guest Relations Receptionist Name Role Phone Gary DAS, Ladonna Bee Primary Care Physician Encounter [facility] [place] Date(s): 05/25/20 - 05/25/[address] [address] Discharge Disposition: A-D/C Home Attending Physician: Kilo Chu MD Admitting Physician: Kilo Chu MD Referring Physician: Kilo Chu MD Allergies, Adverse Reactions, Alerts Substance Reaction Severity Status NKA Active Medications albuterol CFC free 90 mcg/inh inhalation aerosol 2, puffs, Inhalation, Every 4 hours, PRN, # 1 each, Refills 2, Tot. Refills 2, Maintenance, 12/17/19 18:19:00 EDT, Aerosol, Route to Pharmacy Electronically, [id number], [facility]/pharmacy #[id number], 180, cm, 12/17/19 16:01:00 EDT, Hei... Start Date: 12/17/19 Stop Date: 03/16/20 Status: Ordered NuLYTELY with Flavor Packs oral powder for reconstitution See Instructions, Drink 240mL every 10-15 minutes until first half is gone. Repeat 6 hours prior toprocedure., # 4,000 mL, 0 Refills, Maintenance, 02/17/20 13:51:00 EDT, [facility]/pharmacy #[id number], Drink 240mL every 10-15 minutes until first half is gone.... Start Date: 02/17/20 Status: Ordered omeprazole 40 mg oral enteric coated capsule 1 capsule = 40 mg, By Mouth, Daily, Take 30-60 minutes prior to eating or drinking, # 60 capsule, 6Refills, Maintenance, 02/17/20 13:51:00 EDT, CR Capsule, [id number], 179, cm, 02/17/20 13:07:00 EDT, Height, 155, kg, 02/07/20 13:29:00 EDT, Start Date: 02/17/20 Status: Ordered PriLOSEC OTC 20 mg oral delayed release tablet 2 tablet = 40 mg, By Mouth, Daily, # 60 tablet, 0 Refills, Maintenance, 01/20/20 8:46:00 EDT, EC Tablet Start Date: 01/20/20 Status: Ordered Problem List Condition Effective Dates Status Health Status Inform ant GERD (gastroesophageal reflu x disease)(Confirmed) Active Hypercholesterolemia(Confirmed) Active Hypertension(Confirmed) Active Morbid obesity(Confirmed) Active Vital Signs Most recent to oldest [Reference Range]: 1 2 3 Oxygen Saturation [94-100 %] 98 % (05/25/20 11:43 AM) 98 % (05/25/20 11:33 AM) 97 % (05/25/20 9:37 AM) Pulse Rate [55-90 bpm] 78 bpm (05/25/20 9:37 AM) Blood Pressure [90-138/55-84 mm Hg] 139/93mm Hg *H* (05/25/20 11:43 AM) 117/87mm Hg (05/25/20 11:33 AM) 150/89mm Hg *H* (05/25/20 9:37 AM) Respiratory Rate [16-30 br/min] 18 br/min (05/25/20 11:43 AM) 14 br/min *L* (05/25/20 11:33 AM) 20 br/min (05/25/20 9:37 AM) Temperature [96.8-100.4 DegF] 98.0 DegF (05/25/20 9:37 AM) Mode of Delivery (Oxygen) Room air (05/25/20 11:43 AM) Room air (05/25/20 11:33 AM) Room air (05/25/20 9:37 AM) Temperature Route Femoral (05/25/20 9:37 AM) Dry Weight 154 kg (05/25/20 9:37 AM) Social History Social History Type Response Tobacco Use: 4 or less cigar ettes(less than 1/4 pack)/day in last 30 days. Sex
--- OUTSIDE RECORDS SUMMARY | 2023-11-28 07:11 | XMS_ITS | Continuity of Care Document ---
Author Organization [facility] Address [address] [place] [address]- Care Team Providers Care Percolator Operator Name Role Phone Gary DAS, Ladonna Bee Primary Care Physician Encounter [facility] [place] Date(s): 03/03/20 - 04/09/[address] [address] [phone] Attending Physician: Vijay Ayers MD Admitting Physician: Vijay Ayers MD Allergies, Adverse Reactions, Alerts Substance Reaction Severity Status NKA Active Medications albuterol CFC free 90 mcg/inh inhalation aerosol 2, puffs, Inhalation, Every 4 hours, PRN, # 1 each, Refills 2, Tot. Refills 2, Maintenance, 12/17/19 18:19:00 EDT, Aerosol, Route to Pharmacy Electronically, [id number], [id number], 180, cm, 12/17/19 16:01:00 EDT, Hei... Start Date: 12/17/19 Stop Date: 03/16/20 Status: Ordered NuLYTELY with Flavor Packs oral powder for reconstitution See Instructions, Drink 240mL every 10-15 minutes until first half is gone. Repeat 6 hours prior toprocedure., # 4,000 mL, 0 Refills, Maintenance, 02/17/20 13:51:00 EDT, [id number], Drink 240mL every 10-15 minutes until first half is gone.... Start Date: 02/17/20 Status: Ordered omeprazole 40 mg oral enteric coated capsule 1 capsule = 40 mg, By Mouth, Daily, Take 30-60 minutes prior to eating or drinking, # 60 capsule, 6Refills, Maintenance, 02/17/20 13:51:00 EDT, CR Capsule, [facility]/pharmacy #[id number], 179, cm, 02/17/20 13:07:00 EDT, Height, 155, kg, 02/07/20 13:29:00 EDT, . Start Date: 02/17/20 Status: Ordered PriLOSEC OTC 20 mg oral delayed release tablet 2 tablet = 40 mg, By Mouth, Daily, # 60 tablet, 0 Refills, Maintenance, 01/20/20 8:46:00 EDT, EC Tablet Start Date: 01/20/20 Status: Ordered psyllium 3.4 g/5.4 g oral powder for reconstitution = 1.7 Gm, By Mouth, Daily, for 30 days, dissolve in 8 oz of fluid, # 51 Gm, 1 Refills, Acute 04/17/20 13:54:00 EST, 02/17/20 13:54:00 EDT, [facility]/pharmacy #[id number], 179, cm, 02/17/20 13:07:00 EDT, Height, 155, kg, 02/07/20 13:29:00 EDT, Dry Weight Start Date: 02/17/20 Stop Date: 04/17/20 Status: Ordered Problem List Condition Effective Dates Status Health Status Inform ant GERD (gastroesophageal reflu x disease)(Confirmed) Active Hypercholesterolemia(Confirmed) Active Hypertension(Confirmed) Active Morbid obesity(Confirmed) Active Social History Social History Type Response Tobacco Use: 4 or less cigar ettes(less than 1/4 pack)/day in last 30 days. Sex
--- OUTSIDE RECORDS SUMMARY | 2023-11-28 07:11 | XMS_ITS | Continuity of Care Document ---
Author Organization [facility] Address [address] [place] [phone]- Care Team Providers Care Classifier Tender Name Role Phone Gary DAS, Ladonna Bee Primary Care Physician Encounter [facility] [place] Date(s): 03/03/21 - 04/02/21 [facility] [address] [place] [id number]- Attending Physician: AdmtrBasilio Admitting Physician: Admtr, Ar8 Referring Physician: Admtr, Ar8 Allergies, Adverse Reactions, Alerts Substance Reaction Severity Status NKA Active Medications albuterol CFC free 90 mcg/inh inhalation aerosol 2, puffs, Inhalation, Every 4 hours, PRN, # 1 each, Refills 2, Tot. Refills 2, Maintenance, 12/17/19 18:19:00 EDT, Aerosol, Route to Pharmacy Electronically, [id number], [facility]/pharmacy #[id number], 180, cm, 12/17/19 16:01:00 EDT, Hei... Start Date: 12/17/19 Stop Date: 03/16/20 Status: Ordered erythromycin 0.5% ophthalmic ointment 0.5 inches, Eyes, Both, 4 times a day, # 4 Gm, 0 Refills, Maintenance, 01/26/21 21:47:00 EDT, OphthOintment, [facility]/pharmacy #[id number], Partial fill upon patient request if the prescription is for a schedule II opioid drug., 0.5 inches Eyes, Both 4 times a... Start Date: 01/26/21 Status: Ordered omeprazole 40 mg oral enteric coated capsule See Instructions, TAKE 1 CAPSULE BY MOUTH DAILY,INSTR:TAKE 30-60 MINUTES PRIOR TO EATING OR DRINKING, # 30 capsule, 0 Refills, [id number], 178, cm, 01/26/21 21:57:00 EDT, Height, 154.8, kg, 01/26/21 21:57:00 EDT, Dry Weight Start Date: 02/24/21 Status: Ordered Problem List Condition Effective Dates Status Health Status Inform ant GERD (gastroesophageal reflu x disease)(Confirmed) Active Hypercholesterolemia(Confirmed) Active Hypertension(Confirmed) Active Morbid obesity(Confirmed) Active Colon polyps- dr tomlinson, colon due 05/2030(Confirmed) Active Social History Social History Type Response Smoking Status Never (less than 100 in lifetime) entered on: 08/09/20 Sex
--- OUTSIDE RECORDS SUMMARY | 2023-11-28 07:11 | XMS_ITS | Continuity of Care Document ---
Author Organization [facility] Address [address] [facility] [place] [address]- Care Team Providers Care Motor Home Electrical Foreman Name Role Phone Glendy Georges Primary Care Physician Encounter [facility] [place] Date(s): 06/10/23 - 07/10/23 [facility] [address] [place] [address]- Attending Physician: Basilio Mathis Admitting Physician: AdmBasilio vásquez Referring Physician: AdmtrBasilio Allergies, Adverse Reactions, Alerts No Known Allergies Immunizations Given and Recorded Vaccine Date Status Refusal Reason SARS-CoV-2 (COVID-19) [id number] vaccine 01/30/22 R ecorded Medications cyclobenzaprine 5 mg oral tablet See Instructions, Take 1 to 2 tablets by mouth every 8 hours as needed for pain/spasm., # 60 tablet, 0 Refills, Maintenance, 03/25/23 15:08:00 EDT, [facility]/pharmacy #[id number], Partial fill upon patient request if the prescription is for a schedule II opioid d... Start Date: 03/25/23 Status: Ordered nortriptyline 10 mg oral capsule 20 mg, 2, capsule, By Mouth, Daily at bedtime, Replaces amitriptyline, # 60 capsule, Refills 5, Tot. Refills 5, Maintenance, 05/21/23 13:08:00 EST, Route to Pharmacy Electronically, [facility]/pharmacy #[id number], Partial fill upon patient request if the prescrip... Start Date: 05/21/23 Status: Ordered omeprazole 40 mg oral enteric coated capsule 1 capsule = 40 mg, By Mouth, Daily, # 90 capsule, 0 Refills, Maintenance, 05/21/23 13:06:00 EST, ECCapsule, [id number], Partial fill upon patient request if the prescription is for a schedule II opioid drug., 180, cm, 05/21/23 12:55:00 EST, H... Start Date: 05/21/23 Status: Ordered Oncovite Multiple Vitamins oral tablet By Mouth, Daily, 0 Refills, Maintenance, 11/22/22 8:48:00 EDT, Partial fill upon patient request ifthe prescription is for a schedule II opioid drug. Start Date: 11/22/22 Status: Ordered Problem List Condition Confirmation Course Effective Dates Status Health Status Informant Colitis Confirmed Active GERD (gastroesophageal reflux disease) Confirmed Active History of bilateral inguinal hernias Confirmed Active Hypercholesterolemia Confirmed Active Hypertension Confirmed Active IBS (irritable bowel syndrome) Confirmed Active Pelvic pain Confirmed Active Testicular pain Confirmed Active Prostadynia Confirmed Active Colon polyps- dr tomlinson, colon due 05/2030 Confirmed Active Severe obesity Confirmed Active Fatty liver Confirmed Active Social History Social History Type Response Smoking Status Former smoker, quit more than 30 days ago entered on: 12/16/22 Sex Patient Care team information Care Team Personnel Name: Mabel Light RN Position: S RN Member Role: Primary Care Nurse Name: Brigette Vega RN Position: S RN Supv Member Role: Primary Care Nurse Name: Glendy Georges Position: [facility] Associate Professional Member Role: PCP Address: Address: [address] [place] [address] - [place] Care Team Related Persons Name: SILVER RIVERA Address: home [address] Name: HUNTER RIVERA Address: home [address], [place] Name: BRUCE RIVERA Address: home [address], [place]
--- OUTSIDE RECORDS SUMMARY | 2023-11-28 07:11 | XMS_ITS | Continuity of Care Document ---
Author Organization [facility] Address [address] [place] [address]- Care Team Providers Care Hospice Clinical Manager Name Role Phone Gary DAS, Ladonna Bee Primary Care Physician Encounter [place] Date(s): 02/17/20 - 03/18/20 [facility] [address] [place] [address] [facility] Attending Physician: Admtr, Ar8 Admitting Physician: Admtr, Ar8 Referring Physician: Admtr, Ar8 Allergies, Adverse Reactions, Alerts Substance Reaction Severity Status NKA Active Medications albuterol CFC free 90 mcg/inh inhalation aerosol 2, puffs, Inhalation, Every 4 hours, PRN, # 1 each, Refills 2, Tot. Refills 2, Maintenance, 12/17/19 18:19:00 EDT, Aerosol, Route to Pharmacy Electronically, [id number], [facility]/pharmacy #[id number], 180, cm, 12/17/19 16:01:00 EDT, Hei... Start Date: 12/17/19 Stop Date: 03/16/20 Status: Ordered NuLYTELY with Flavor Packs oral powder for reconstitution See Instructions, Drink 240mL every 10-15 minutes until first half is gone. Repeat 6 hours prior toprocedure., # 4,000 mL, 0 Refills, Maintenance, 02/17/20 13:51:00 EDT, [facility]/pharmacy #[id number], Drink 240mL every 10-15 minutes until first half is gone.... Start Date: 02/17/20 Status: Ordered omeprazole 40 mg oral enteric coated capsule 1 capsule = 40 mg, By Mouth, Daily, Take 30-60 minutes prior to eating or drinking, # 60 capsule, 6Refills, Maintenance, 02/17/20 13:51:00 EDT, CR Capsule, [facility]/pharmacy #[id number], 179, cm, 02/17/20 13:07:00 EDT, Height, [...] Acute 04/17/20 13:54:00 EST, 02/17/20 13:54:00 EDT, [facility]/pharmacy #[id number], 179, cm, 02/17/20 13:07:00 EDT, Height, [...]
--- OUTSIDE RECORDS SUMMARY | 2023-11-28 07:11 | XMS_ITS | Continuity of Care Document ---
Author Organization [facility] Address [address] [facility] [place] [address]- Care Team Providers Care Optoelectronic Technician Name Role Phone Glendy Georges Primary Care Physician Encounter [facility] [place] Date(s): 11/22/22 - 12/22/22 [facility] [address] [place] [address]- Allergies, Adverse Reactions, Alerts No Known Allergies Immunizations Given and Recorded Vaccine Date Status Refusal Reason SARS-CoV-2 (COVID-19) [id number] vaccine 01/30/22 R ecorded Medications nortriptyline 10 mg oral capsule 10 mg, 1, capsule, By Mouth, Daily at bedtime, Replaces amitriptyline, # 30 capsule, Refills 0, Tot. Refills 0, Maintenance, 12/21/22 14:29:00 EDT, Route to Pharmacy Electronically, [facility]/pharmacy #[id number], Partial fill upon patient request if the prescrip... Start Date: 12/21/22 Status: Ordered Omeprazole By Mouth, Daily, 0 Refills, Maintenance, 12/16/22 20:27:00 EDT, Partial fill upon patient request if the prescription is for a schedule II opioid drug. Start Date: 12/16/22 Status: Ordered Oncovite Multiple Vitamins oral tablet By Mouth, Daily, 0 Refills, Maintenance, 11/22/22 8:48:00 EDT, Partial fill upon patient request ifthe prescription is for a schedule II opioid drug. Start Date: 11/22/22 Status: Ordered Problem List Condition Confirmation Course Effective Dates Status Health Status Informant GERD (gastroesophageal reflux disease) Confirmed Active History of bilateral inguinal hernias Confirmed Active Hypercholesterolemia Confirmed Active Hypertension Confirmed Active IBS (irritable bowel syndrome) Confirmed Active Pelvic pain Confirmed Active Testicular pain Confirmed Active Colon polyps- dr tomlinson, colon due 05/2030 Confirmed Active Severe obesity Confirmed Active Fatty liver Confirmed Active Social History Social History Type Response Smoking Status Former smoker, quit more than 30 days ago entered on: 12/16/22 Sex Patient Care team information Care Team Personnel Name: Glendy Georges Position: S Associate Professional Member Role: PCP Address: Address: [address] [place] [address]- Care Team Related Persons Name: SILVER RIVERA Address: home [address] [address] Name: HUNTER RIVERA Address: home [address] [place] [address] Name: BRUCE RIVERA Address: home [address] [place] [address]
--- OUTSIDE RECORDS SUMMARY | 2023-11-28 07:11 | XMS_ITS | Continuity of Care Document ---
Author Organization [facility] Address [address] [facility] [place] [address]- Care Team Providers Care Photographer Assistant Name Role Phone Glendy Georges Primary Care Physician Encounter [facility] Date(s): 12/10/22 - 01/09/23 [facility] [address] [place] [address]- Allergies, Adverse Reactions, Alerts No Known Allergies Immunizations Given and Recorded Vaccine Date Status Refusal Reason SARS-CoV-2 (COVID-19) [id number]-9569 vaccine 01/30/22 R ecorded Medications nortriptyline 10 mg oral capsule 10 mg, 1, capsule, By Mouth, Daily at bedtime, Replaces amitriptyline, # 30 capsule, Refills 0, Tot. Refills 0, Maintenance, 12/21/22 14:29:00 EDT, Route to Pharmacy Electronically, [facility]/pharmacy #[id number], Partial fill upon patient request if the [...] Associate Professional Member Role: PCP Address: Address: [address] [place] [address]- Care Team Related Persons Name: SILVER RIVERA Address: home [address] [address] Name: HUNTER RIVERA Address: home [address] [place] [address] Name: BRUCE RIVERA Address: home [address] [place] [address]
--- OUTSIDE RECORDS SUMMARY | 2023-11-28 07:11 | XMS_ITS | Continuity of Care Document ---
Author Organization [facility] Address [address] [place] [address]- Care Team Providers Care Wire Inserter Name Role Phone Glendy Georges Primary Care Physician Encounter [facility] ACCT R [id number] Date(s): 07/19/23 - 11/03/23 [facility] [address] [place] [address]- Attending Physician: Carlotta Flores MD Admitting Physician: Carlotta Flores MD Referring Physician: Glendy Georges Allergies, Adverse Reactions, Alerts No Known Allergies Immunizations Given and Recorded Vaccine Date Status Refusal Reason SARS-CoV-2 (COVID-19) mRNA-1279 vaccine 01/30/22 R ecorded Medications cyclobenzaprine 5 mg oral tablet 1 TO 2 TABLETS, By Mouth, Every 8 hours, PRN NEEDED FOR PAIN/SPASM, # 60 tablet, 0 Refills, Maintenance, 08/26/23 16:45:00 EDT, [facility], 180, cm, 05/21/23 12:55:00 EST, Height, 134.8, kg, 03/17/23 14:50:00 EDT, Dry Weight Start Date: 08/26/23 Status: Ordered meloxicam 15 mg oral tablet 1 tablet = 15 mg, By Mouth, Daily, PRN pain, # 30 tablet, 0 Refills, Maintenance, 10/04/23 11:55:00EDT, Tablet, [id number], Partial fill upon patient request if the prescription is for a schedule II opioid drug., 180, cm, 09/10/23 15:13:00 ED... Start Date: 10/04/23 Status: Ordered meloxicam 15 mg oral tablet See Instructions, TAKE 1 TABLET BY MOUTH DAILY, NEEDED FOR PAIN, # 30 tablet, 0 Refills, Maintenance, 10/31/23 17:43:00 EDT, [facility], 180, cm, 09/10/23 15:13:00 EDT, Height, 134.8, kg, 03/17/23 14:50:00 EDT, Dry Weight Start Date: 10/31/23 Status: Ordered nortriptyline 10 mg oral capsule 20 mg, 2, capsule, By Mouth, Daily at bedtime, Replaces amitriptyline, # 60 capsule, Refills 5, Tot. Refills 5, Maintenance, 05/21/23 13:08:00 EST, Route to Pharmacy Electronically, [facility]/pharmacy #[id number], Partial fill upon patient request if the prescrip... Start Date: 05/21/23 Status: Ordered omeprazole 40 mg oral enteric coated capsule 1 capsule, By Mouth, Daily, # 90 capsule, 1 Refills, Maintenance, 08/26/23 15:36:00 EDT, [facility], 180, cm, 05/21/23 12:55:00 EST, Height, 134.8, kg, 03/17/23 14:50:00 EDT, Dry Weight Start Date: 08/26/23 Status: Ordered Oncovite Multiple Vitamins oral tablet By Mouth, Daily, 0 Refills, Maintenance, 11/22/22 8:48:00 EDT, Partial fill upon patient request ifthe prescription is for a schedule II opioid drug. Start Date: 11/22/22 Status: Ordered Problem List Condition Confirmation Course Effective Dates Status Health Status Informant Labral tear of hip joint Confirmed Active Colitis Confirmed Active GERD (gastroesophageal reflux disease) [...] RN Member Role: Primary Care Nurse Name: Glendy Georges Position: S Associate Professional Member Role: PCP Address: Address: [address] [place] [address] [place] [address]- [place] Care Team Related Persons Name: SILVER RIVERA Address: home [address] [address] Name: HUNTER RIVERA Address: home [address] [place] [address] Name: BRUCE RIVERA Address: home [address] [place] [address]
--- OUTSIDE RECORDS SUMMARY | 2023-11-28 07:11 | XMS_ITS | Continuity of Care Document ---
Author Organization [facility] Address [address] [place] [address]- Care Team Providers Care Behavioral Scientist Name Role Phone Glendy Georges Primary Care Physician Encounter [facility] Date(s): 11/14/22 - 12/14/22 [facility] [address] [place], [place] [address] Allergies, Adverse Reactions, Alerts No Known Allergies Immunizations Given and Recorded Vaccine Date Status Refusal Reason SARS-CoV-2 (COVID-19) [id number] vaccine 01/30/22 R ecorded Medications amitriptyline 10 mg oral tablet See Instructions, Take 1 tab po at bedtime x 1 week and then increase to 2 tabs at bedtime., # 60 tablet, Refills 1, Tot. Refills 1, Maintenance, 12/07/22 16:43:00 EDT, Instructions Replace Required Details, [facility] to [facility] Start Date: 12/07/22 Status: Ordered Oncovite Multiple Vitamins oral tablet By Mouth, Daily, 0 Refills, Maintenance, 11/22/22 8:48:00 EDT, Partial fill upon patient request ifthe prescription is for a schedule II opioid drug. Start Date: 11/22/22 Status: Ordered pelvic floor rehabilitation /physical therapy pelvic floor rehabilitation /physical therapy, See Instructions, # 1 Unknown, Refills 0, Tot. Refills 0, Maintenance, pelvic floor rehabilitation /physical therapy N50.812 Left testicular pain Z98.890 S/P bilateral inguinal hernia repair Z87.19... Start Date: 12/10/22 Status: Ordered Xifaxan 550 mg oral tablet 0 Refills, Maintenance, 12/07/22 14:40:00 EDT, Partial fill upon patient request if the prescription is for a schedule II opioid drug. Start Date: 12/07/22 Status: Ordered Problem List Condition Confirmation Course Effective Dates Status Health Status Informant GERD (gastroesophageal reflux disease) Confirmed Active History of bilateral inguinal hernias Confirmed Active Hypercholesterolemia Confirmed Active Hypertension Confirmed Active IBS (irritable bowel syndrome) Confirmed Active Morbid obesity Confirmed Active Pelvic pain Confirmed Active Testicular pain Confirmed Active Colon polyps- dr tomlinson, colon due 05/2030 Confirmed Active Fatty liver Confirmed Active Social History Social History Type Response Smoking Status Former smoker, quit more than 30 days ago entered on: 11/14/22 Sex Patient Care team information Care Team Personnel Name: Glendy Georges Position: S Associate Professional Member Role: PCP Address: Address: [address] [place] [address] [place] [address]- Care Team Related Persons Name: SILVER RIVERA Address: home [address] [address] Name: HUNTER RIVERA Address: home [address] [place] [address] Name: BRUEC RIVERA Address: home [address] [place] [address]
--- OUTSIDE RECORDS SUMMARY | 2023-11-28 07:12 | XMS_ITS | Continuity of Care Document ---
Author Organization [facility] Address [address] [place] [address]- Care Team Providers Care Ocean Export Agent Name Role Phone Glendy Georges Primary Care Physician Encounter [facility] Date(s): 11/12/22 - 12/12/22 [facility] [address] [place], [place] [address] Attending Physician: AdmBasilio vásquez Admitting Physician: Admtr, Ar8 Referring Physician: Admtr, Ar8 Allergies, Adverse Reactions, Alerts No Known Allergies Immunizations Given and Recorded Vaccine Date Status Refusal Reason SARS-CoV-2 (COVID-19) mRNA-6455 vaccine 01/30/22 R ecorded Medications amitriptyline 10 [...] Associate Professional Member Role: PCP Address: Address: [address] [place] [address] [place] [address]- [place] Care Team Related Persons Name: SILVER RIVERA Address: home [address] [address] Name: HUNTER RIVERA Address: home [address] [place] [address] Name: BRUCE RIVERA Address: home [address] [place] [address]
--- OUTSIDE RECORDS SUMMARY | 2023-11-28 07:12 | XMS_ITS | Continuity of Care Document ---
Author Organization [facility] Address [address] [place] [address]- Care Team Providers Care Burn Out Tender Lace Name Role Phone Gary DAS, Ladonna Bee Primary Care Physician Encounter [facility] Date(s): 02/22/20 - 04/02/[address] [address]- [facility] Attending Physician: Felix Billingsley MD Admitting Physician: Felix Billingsley MD Allergies, Adverse Reactions, Alerts Substance Reaction Severity Status NKA Active Medications albuterol CFC free 90 mcg/inh inhalation aerosol 2, puffs, Inhalation, Every 4 hours, PRN, # 1 each, Refills 2, Tot. Refills 2, Maintenance, 12/17/19 18:19:00 EDT, Aerosol, Route to Pharmacy Electronically, [id number], [facility]/pharmacy #[id number], 180, cm, 12/17/19 16:01:00 EDT, [...] Acute 04/17/20 13:54:00 EST, 02/17/20 13:54:00 EDT, [id number], 179, cm, 02/17/20 13:07:00 EDT, [...]
--- OUTSIDE RECORDS SUMMARY | 2023-11-28 07:12 | XMS_ITS | Continuity of Care Document ---
Author Organization [facility] Address [address] [place] [address]- Care Team Providers Care Geometry Teacher Name Role Phone Glendy Georges Primary Care Physician Encounter [facility] Date(s): 08/28/23 - 09/27/23 [facility] [address] [place] [address]- Allergies, Adverse Reactions, Alerts No Known Allergies Immunizations Given and Recorded Vaccine Date Status Refusal Reason SARS-CoV-2 (COVID-19) [id number] vaccine 01/30/22 R ecorded Medications cyclobenzaprine 5 mg oral tablet 1 TO 2 TABLETS, By Mouth, Every 8 hours, PRN NEEDED FOR PAIN/SPASM, # 60 tablet, 0 Refills, Maintenance, 08/26/23 16:45:00 EDT, [facility], 180, cm, 05/21/23 12:55:00 EST, Height, 134.8, kg, 03/17/23 14:50:00 EDT, Dry Weight Start Date: 08/26/23 Status: Ordered meloxicam 15 mg oral tablet 1 tablet = 15 mg, By Mouth, Daily, PRN Pain , Mild, # 30 tablet, 0 Refills, Maintenance, 09/10/23 15:50:00 EDT, Tablet, [id number], Partial fill upon patient request if the prescription is for a schedule II opioid drug., 180, cm, 09/10/23 15:1... Start Date: 09/10/23 Status: Ordered nortriptyline 10 mg oral capsule 20 mg, 2, capsule, By Mouth, Daily at bedtime, Replaces amitriptyline, # 60 capsule, Refills 5, Tot. Refills 5, Maintenance, 05/21/23 13:08:00 EST, Route to Pharmacy Electronically, [facility]/pharmacy #[id number], Partial fill upon patient request if the prescrip... Start Date: 05/21/23 Status: Ordered omeprazole 40 mg oral enteric coated capsule 1 capsule, By Mouth, Daily, # 90 capsule, 1 Refills, Maintenance, 08/26/23 15:36:00 EDT, [facility], 180, cm, 05/21/23 12:55:00 EST, Height, 134.8, [...] Primary Care Nurse Name: Glendy Georges Position: [facility] Associate Professional Member Role: PCP Address: Address: [address] [place] [address] [address] [facility] Primary Care [place], [place] - Care Team Related Persons Name: SILVER RIVERA Address: home [address] [facility] [address] [place], [place] Name: HUNTER RIVERA Address: home [address] [place], [place] Name: BRUCE RIVERA Address: home [address] [place], [place]
--- OUTSIDE RECORDS SUMMARY | 2023-11-28 07:12 | XMS_ITS | Continuity of Care Document ---
Author Organization [facility] Address [address] [place] [address]- Care Team Providers Care Agricultural Lender Name Role Phone Gary DAS, Ladonna Bee Primary Care Physician Encounter [facility] Date(s): 02/24/21 - 03/26/21 [facility] [address] [place] [address]- [place] Allergies, Adverse Reactions, Alerts Substance Reaction Severity Status NKA Active Medications albuterol CFC free 90 mcg/inh inhalation aerosol 2, puffs, Inhalation, Every 4 hours, PRN, # 1 each, Refills 2, Tot. Refills 2, Maintenance, 12/17/19 18:19:00 EDT, Aerosol, Route to Pharmacy Electronically, [id number], [facility]/pharmacy #[id number], 180, cm, 12/17/19 16:01:00 EDT, Hei... Start Date: 12/17/19 Stop Date: 03/16/20 Status: Ordered erythromycin 0.5% ophthalmic ointment 0.5 inches, Eyes, Both, 4 times a day, # 4 Gm, 0 Refills, Maintenance, 01/26/21 21:47:00 EDT, OphthOintment, [facility]/pharmacy #[id number], Partial fill upon patient request if the prescription is for a schedule II opioid drug., 0.5 inches Eyes, Both 4 times a... Start Date: 01/26/21 Status: Ordered omeprazole 40 mg oral enteric coated capsule See Instructions, TAKE 1 CAPSULE BY MOUTH DAILY,INSTR:TAKE 30-60 MINUTES PRIOR TO EATING OR DRINKING, # 30 capsule, 0 Refills, [facility] STORE 76332, 178, cm, 01/26/21 21:57:00 EDT, Height, 154.8, [...]
--- OUTSIDE RECORDS SUMMARY | 2023-11-28 07:12 | XMS_ITS | Continuity of Care Document ---
Author Organization [facility] Address [address] [place] [address]- Care Team Providers Care Hunter Guide Name Role Phone Gary DAS, Ladonna Bee Primary Care Physician Encounter [facility] Date(s): 06/02/20 - 07/02/20 [facility] [address] [place] [address] Allergies, Adverse Reactions, Alerts Substance Reaction Severity Status NKA Active Medications albuterol CFC free 90 mcg/inh inhalation aerosol 2, puffs, Inhalation, Every 4 hours, PRN, # 1 each, Refills 2, Tot. Refills 2, Maintenance, 12/17/19 18:19:00 EDT, Aerosol, Route to Pharmacy Electronically, [id number], [id number], 180, cm, 12/17/19 16:01:00 EDT, [...]
--- OUTSIDE RECORDS SUMMARY | 2023-11-28 07:12 | XMS_ITS | Continuity of Care Document ---
Author Organization [facility] Address [address] [facility] [place] [address]- Care Team Providers Care Engineering Equipment Operator Name Role Phone Glendy Georges Primary Care Physician Encounter [facility] Date(s): 03/12/23 - 07/10/23 [facility] [address] [place] [address]- Attending Physician: Apollo Billingsley MD Admitting Physician: Apollo Billingsley MD Referring Physician: Glendy Georges Allergies, Adverse Reactions, Alerts No Known Allergies Immunizations Given and Recorded Vaccine Date Status Refusal Reason SARS-CoV-2 (COVID-19) [id number] vaccine 01/30/22 R ecorded Medications cyclobenzaprine 5 mg oral tablet See Instructions, Take 1 to 2 tablets by mouth every 8 hours as needed for pain/spasm., # 60 tablet, 0 Refills, Maintenance, 03/25/23 15:08:00 EDT, [facility]/pharmacy #[id number], Partial fill upon patient request if the prescription is for a schedule II opioid d... Start Date: 03/25/23 Status: Ordered nortriptyline 10 mg oral capsule 20 mg, 2, capsule, By Mouth, Daily at bedtime, Replaces amitriptyline, # 60 capsule, Refills 5, Tot. Refills 5, Maintenance, 05/21/23 13:08:00 EST, Route to Pharmacy Electronically, [facility]/pharmacy #[id number], Partial fill upon patient request [...] Primary Care Nurse Name: Glendy Georges Position: [facility] Associate Professional Member Role: PCP Address: Address: [address] [place] [address] - [place] Care Team Related Persons Name: SILVER RIVERA Address: home [address] Name: HUNTER RIVERA Address: home [address] [place], [place] Name: BRUCE RIVERA Address: home [address] [place], [place]
--- OUTSIDE RECORDS SUMMARY | 2023-11-28 07:12 | XMS_ITS | Continuity of Care Document ---
Author Organization [facility] Address [address] [facility] [place] [address]- Care Team Providers Care Swahili Teacher Name Role Phone Glendy Georges Primary Care Physician Encounter [facility] Date(s): 11/22/22 - 12/22/22 [facility] [address] [place] [address]- Allergies, Adverse Reactions, Alerts No Known Allergies Immunizations Given and Recorded Vaccine Date Status Refusal Reason SARS-CoV-2 (COVID-19) mRNA-2562 vaccine 01/30/22 R ecorded Medications nortriptyline 10 mg oral capsule 10 mg, 1, capsule, By Mouth, Daily at bedtime, Replaces amitriptyline, # 30 capsule, Refills 0, Tot. Refills 0, Maintenance, 12/21/22 14:29:00 EDT, Route to Pharmacy Electronically, [facility]/pharmacy #[id number], Partial fill upon patient request if the [...] team information Care Team Personnel Name: Glendy eGorges Position: S Associate Professional Member Role: PCP Address: Address: [address] [place] [address]- Care Team Related Persons Name: SILVER RIVERA Address: home [address] [address] Name: HUNTER RIVERA Address: home [address] [place] [address] Name: BRUCE RIVERA Address: home [address] [place] [address]
--- OUTSIDE RECORDS SUMMARY | 2023-11-28 07:12 | XMS_ITS | Continuity of Care Document ---
Author Organization [facility] Address [address] [place] [address]- Care Team Providers Care Fabric Cutter Name Role Phone Glendy Georges Primary Care Physician [phone] Encounter [facility] [place] Date(s): 10/04/23 - 11/03/23 [facility] [address] [place] [address]- Attending Physician: Basilio Mathis Admitting Physician: AdmBasilio vásquez Referring Physician: Admtr, Ar8 Allergies, Adverse Reactions, Alerts No Known Allergies Immunizations Given and Recorded Vaccine Date Status Refusal Reason SARS-CoV-2 (COVID-19) mRNA-6907 vaccine 01/30/22 R ecorded Medications cyclobenzaprine 5 mg oral tablet 1 TO 2 TABLETS, By Mouth, Every 8 hours, PRN NEEDED FOR PAIN/SPASM, # 60 tablet, 0 Refills, Maintenance, 08/26/23 16:45:00 EDT, [facility], 180, cm, 05/21/23 12:55:00 EST, Height, 134.8, [...] Refills, Maintenance, 10/31/23 17:43:00 EDT, [facility], 180, cm, 09/10/23 15:13:00 EDT, Height, 134.8, kg, 03/17/23 14:50:00 EDT, Dry Weight Start Date: 10/31/23 Status: Ordered nortriptyline 10 mg oral capsule 20 mg, 2, capsule, By Mouth, Daily at bedtime, Replaces amitriptyline, # 60 capsule, Refills 5, Tot. Refills 5, Maintenance, 05/21/23 13:08:00 EST, Route to Pharmacy Electronically, [facility]/pharmacy #[id number], Partial fill upon patient request if the prescrip... Start Date: 05/21/23 Status: Ordered omeprazole 40 mg oral enteric coated capsule 1 capsule, By Mouth, Daily, # 90 capsule, 1 Refills, Maintenance, 08/26/23 15:36:00 EDT, [facility], 180, cm, 05/21/23 12:55:00 EST, Height, 134.8, [...] Associate Professional Member Role: PCP Address: Address: [address] [place] [address]- Care Team Related Persons Name: SILVER RIVERA Address: home [address] [address] Name: HUNTER RIVERA Address: home [address] [place] [address] Name: BRUCE RIVERA Address: home [address] [place] [address]
--- OUTSIDE RECORDS SUMMARY | 2023-11-28 07:12 | XMS_ITS | Continuity of Care Document ---
Author Organization [facility] Address [address] [place] [address]- Care Team Providers Care Fingerprint Clerk Name Role Phone Gary DAS, Ladonna Bee Primary Care Physician [place] [facility] [place]s): 11/29/20 - 12/29/20 [facility] [address] [place] [id number] Attending Physician: Felix Billingsley MD Admitting Physician: Felix Billingsley MD Referring Physician: Ladonna Vega MD Allergies, Adverse Reactions, Alerts Substance Reaction Severity Status NKA Active Medications albuterol CFC free 90 mcg/inh inhalation aerosol 2, puffs, Inhalation, Every 4 hours, PRN, # 1 each, Refills 2, Tot. Refills 2, Maintenance, 12/17/19 18:19:00 EDT, Aerosol, Route to Pharmacy Electronically, [id number], [facility]/pharmacy #0084, 180, cm, 12/17/19 16:01:00 EDT, .. Start Date: 12/17/19 Stop Date: 03/16/20 Status: Ordered omeprazole 40 mg oral enteric [...]
--- OUTSIDE RECORDS SUMMARY | 2023-11-28 07:12 | XMS_ITS | Continuity of Care Document ---
Author Organization [facility] Address 48 [facility] [place] [address]- Care Team Providers Care Chemistry Research Assistant Name Role Phone Glendy Georges Primary Care Physician Encounter [facility] Date(s): 11/26/22 - 12/26/22 [facility] [address] [place] [address]- Allergies, Adverse Reactions, Alerts No Known Allergies Immunizations Given and Recorded Vaccine Date Status Refusal Reason SARS-CoV-2 (COVID-19) [id number] vaccine 01/30/22 R ecorded Medications nortriptyline 10 mg oral capsule 10 mg, 1, capsule, By Mouth, Daily at bedtime, Replaces amitriptyline, # 30 capsule, Refills 0, Tot. Refills 0, Maintenance, 12/21/22 14:29:00 EDT, Route to Pharmacy Electronically, [facility]/pharmacy #9714, Partial fill upon patient request if the [...] Associate Professional Member Role: PCP Address: Address: [address] [place] [address]- [place] Care Team Related Persons Name: SILVER RIVERA Address: home [address] [address] Name: HUNTER RIVERA Address: home [address] [place] [address] Name: BRUCE RIVERA Address: home [address] [place] [address]
--- OUTSIDE RECORDS SUMMARY | 2023-11-28 07:12 | XMS_ITS | Continuity of Care Document ---
Author Organization [facility] Address [address] [place] [address]- Care Team Providers Care Tax Lawyer Name Role Phone Gary DAS, Ladonna Bee Primary Care Physician Encounter [facility] [place] ACCT R [id number] Date(s): 12/03/20 - 04/02/21 [facility] [address] [place] [address]- Attending Physician: Felix Billingsley MD Admitting Physician: Felix Billingsley MD Referring Physician: Ladonna Vega MD Allergies, Adverse Reactions, Alerts Substance Reaction Severity Status NKA Active Medications albuterol CFC free 90 mcg/inh inhalation aerosol 2, puffs, Inhalation, Every 4 hours, PRN, # 1 each, Refills 2, Tot. Refills 2, Maintenance, 12/17/19 18:19:00 EDT, Aerosol, Route to Pharmacy Electronically, [id number], [facility]/pharmacy #0084, 180, cm, 12/17/19 16:01:00 EDT, Hei... Start Date: 12/17/19 Stop Date: 03/16/20 Status: Ordered erythromycin 0.5% ophthalmic ointment 0.5 inches, Eyes, Both, 4 times a day, # 4 Gm, 0 Refills, Maintenance, 01/26/21 21:47:00 EDT, OphthOintment, [facility]/pharmacy #0084, Partial fill upon patient request if the prescription is for a schedule II opioid drug., 0.5 inches Eyes, Both 4 times a... Start Date: 01/26/21 Status: Ordered omeprazole 40 mg oral enteric coated capsule See Instructions, TAKE 1 CAPSULE BY MOUTH DAILY,INSTR:TAKE 30-60 MINUTES PRIOR TO EATING OR DRINKING, # 30 capsule, 0 Refills, [email or web address], 178, cm, 01/26/21 21:57:00 EDT, Height, 154.8, [...]
--- OUTSIDE RECORDS SUMMARY | 2023-11-28 07:12 | XMS_ITS | Continuity of Care Document ---
Author Organization [facility] Address [address] [facility] [facility] [place] [address]- Care Team Providers Care Instrument Assembly Supervisor Name Role Phone Glendy Georges Primary Care Physician Encounter [facility] Date(s): 12/05/22 - 01/04/23 [facility] [address] [place] [address]- Allergies, Adverse Reactions, Alerts No Known Allergies Immunizations Given and Recorded Vaccine Date Status Refusal Reason SARS-CoV-2 (COVID-19) mRNA-7700 vaccine 01/30/22 R ecorded Medications nortriptyline 10 mg oral capsule 10 mg, 1, capsule, By Mouth, Daily at bedtime, Replaces amitriptyline, # 30 capsule, Refills 0, Tot. Refills 0, Maintenance, 12/21/22 14:29:00 EDT, Route to Pharmacy Electronically, [facility]/pharmacy #[id number], Partial fill upon patient request if the [...] Associate Professional Member Role: PCP Address: Address: [address] [place] [address]- Care Team Related Persons Name: SILVER RIVERA Address: home [address] [address] Name: HUNTER RIVERA Address: home [address] [place] [address] Name: BRUCE RIVERA Address: home [address] [place] [address]
== END 2023-11-23 18:30 | disposition home or self-care (01) ==
PROVIDERS: Registered Nurse Emergency; Emergency Provider Student in an Organized Health Care Education/Training Program; PCP Physician Assistant Medical
DX: B34.9 Viral infection, unspecified (principal); J02.9 Acute pharyngitis, unspecified; R05.9 Cough, unspecified; Z03.818 Encounter for observation for suspected exposure to other biological agents ruled out
CPT/HCPCS: 0241U; 87651; 99283

== ENCOUNTER 2023-12-23 07:41 | Outpatient (REF) | payer OTHER, SELFPAY ==
[2023-12-23 11:47] LABS: Alanine Aminotransferase 11 U/L (0-40); Albumin Level 4.1 g/dL (3.5-5.0); Alkaline Phosphatase 72 U/L (39-117); Anion Gap 12 (12-20); Aspartate Amino Transferase 18 U/L (5-37); Bilirubin Total 0.4 mg/dL (0.0-1.0); Blood Urea Nitrogen 15 mg/dL (9-16); Carbon Dioxide 24 mmol/L (22-29); Chloride 107 mmol/L (96-108); Cholesterol 234 mg/dL (<200); Estimated Glomerular Filt Rate > 60; Glucose Random 106 mg/dL (60-115); HDL Cholesterol 37 mg/dL (>40); LDL Cholesterol Calculated 181 mg/dL (<100); Potassium 4.1 mmol/L (3.3-5.1); Sodium 139 mmol/L (135-145); Total Protein 6.7 g/dL (6.5-8.0); Triglycerides 84 mg/dL (<150)
[2023-12-23 11:53] LABS: Prostate Specific Antigen Scr 0.73 ng/mL (<0.05-4.0)
[2023-12-23 12:05] LABS: TSH reflex Free T4 1.44 uIU/mL (0.32-4.0)
== END 2023-12-23 07:42 | disposition home or self-care (01) ==
LOC: HO.WFDLDS 07:41
PROVIDERS: Visit Provider Physician Assistant Medical
DX: E66.9 Obesity, unspecified (principal); F41.9 Anxiety disorder, unspecified; R10.2 Pelvic and perineal pain; G89.29 Other chronic pain; Z12.5 Encounter for screening for malignant neoplasm of prostate
CPT/HCPCS: 36415; 80053; 80061; 84153; 84443

== ENCOUNTER 2023-12-30 09:01 | Outpatient (AMB) | payer OTHER, SELFPAY ==
--- NOTE | 2023-12-30 09:03 | A.OFFPC_ITS ---
Vital Signs 12/30/23 09:05 Height 5 ft 10 in Weight 277 lb BMI 39.7 BP 132/78 Blood Pressure Location Rt brachial Position Sitting Respiration 13 Pulse 68 Pulse Source Pulse Oximeter Pulse Oximetry (%) 98 Oxygen Delivery Method Room Air Intake Visit Reasons: Rescheduled from 12/22 duloxetine med check Intake Note: Patient is here to follow up regarding duloxetine. Patient reports the medication caused him to be tired and angry so he stopped taking the medication. Vp Director Of Creative Strategy Required: No Accompanied by: Self / Same As Patient Allergies No Known Allergies Allergy (Verified 12/30/23 09:08) Tobacco use date assessed: 11/18/23 Dental Screening Dental Screen Date: 11/18/23 HPI HPI Comments History of Present Illness Details This is a 43-year-old male with a past medical history of chronic pelvic pain, chronic back pain, chronic left hip pain, IBS, GERD, anxiety presenting for follow up. He tried Cymbalta for 6-8 days, but it made him feel agitated and tired. He stopped taking it, and everything resolved. He did connect with behavioral health. He did intake, and his first therapy appointment is this week. Continues to endorse OCD like symptoms. He wants to see a new GI specialist. He does not want to go to [facility]. His insurance is no longer accepted [place] [facility] His insurance didn't cover Glp1 so he is following a healthy diet. His LDL cholesterol is 181. Patient says he has been eating a lot of ham and dairy. His fasting glucose was 106. His mother had diabetes. The insurance didn't cover the thoracic MRI. He would like to try PT targeted for this. There is still a spot in the mid back that is tender and painful. Pain is moderate. It bothers him after physical activity, walking. It makes his back very stiff. It hurts when he leans down to to get dressed or put on shoes. ROS: Constitutional: No unexplained weight loss, fever, chills, fatigue or night sweats. Musculoskeletal: see HPI Endocrine: No cold or heat intolerance. No polyuria or polydipsia. Psychiatric: No SI/HI. Physical exam: Constitutional: Alert, in no distress. Head: Normocephalic. Eyes: Pupils are equal, round and reactive to light. Neck: Supple, Full range of motion. No lymphadenopathy. Respiratory: Clear to auscultation. Cardiovascular: S1 S2 regular. No murmurs. Musculoskeletal: Thoracic back pain with flexion. No midline thoracic tenderness. Left thoracic paraspinal musculature tender to palpation. Extremities: Warm and well perfused. No clubbing, cyanosis or edema. Psychiatric: Normal mood and affect [facility] Medical History (Updated 12/30/23 @ 13:26 by IRVING Abbasi) Thoracic back pain IFG (impaired fasting glucose) Hyperlipemia Chronic back pain Obesity Anxiety Chronic left hip pain Chronic pelvic pain in male Hypertension GERD (gastroesophageal reflux disease) Surgical History Hx of hernia repair History of esophagogastroduodenoscopy (EGD) Hx of colonoscopy Family History Mother Diabetes Cancer Father Pacemaker Cancer Social History Household Members: Other Housing: House Alcohol intake: never Patient Tobacco Use Status: Former Tobacco user Tobacco use type: Cigarette Cigarette Packs Per Day: 1 Years Smoked: 15 e-Cigarette/Vaping Use: Never Used Second Hand Smoke Exposure: No Substance Use Type: Marijuana service: No Current occupational status: unemployed 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 Current occupational exposures/hazards: No Cognitive needs: No Hearing needs: No Vision needs: No Physical exam (Primary Care) Vital Signs: Last Vital Signs Pulse 68 12/30/23 09:05 Resp 13 12/30/23 09:05 BP 132/78 12/30/23 09:05 Pulse Ox 98 12/30/23 09:05 Oxygen Delivery Method Room Air 12/30/23 09:05 BMI result Body Mass Index 39.7 Tobacco/Smoking Status: Tobacco use Status Tobacco use date assessed 11/18/23 12/30/23 09:10 Patient Tobacco Use Status Former Tobacco user 12/30/23 09:10 Tobacco use type Cigarette 12/30/23 09:10 e-Cigarette/Vaping Use Never Used 12/30/23 09:10 Assessment and Plan Assessment & Plan (1) Anxiety: Code(s): F41.9 - Anxiety disorder, unspecified (2) GERD (gastroesophageal reflux disease): Code(s): K21.9 - Gastro-esophageal reflux disease without esophagitis Qualifiers: Esophagitis presence: without esophagitis Qualified Code(s): K21.9 - Gastro-esophageal reflux disease without esophagitis (3) Irritable bowel syndrome (IBS): Code(s): K58.9 - Irritable bowel syndrome without diarrhea Qualifiers: Irritable bowel syndrome type: other Qualified Code(s): K58.8 - Other irritable bowel syndrome (4) IFG (impaired fasting glucose): Code(s): R73.01 - Impaired fasting glucose (5) Hyperlipemia: Code(s): E78.5 - Hyperlipidemia, unspecified (6) Thoracic back pain: Code(s): M54.6 - Pain in thoracic spine Plan Anxiety Patient is going to start therapy. We discussed trying alternative medication. It is reasonable to hold off for now until he meets with a therapist further. He ultimately may want to see a psychiatrist given concern for OCD. IBS and GERD Refer to [facility] GI IFG Check hemoglobin A1c with follow up labs. Hyperlipidemia Patient wants to implement lifestyle modifications for another 8 weeks. We will then recheck his blood work. We will discuss starting a statin if indicated. Thoracic back pain Refer to physical therapy. Consider MRI if there is no improvement in symptoms in 6 weeks. Follow up in 8-10 weeks to review labs and recheck thoracic back pain. Orders: Orders PT Evaluation and Treatment Today M54.6 - Pain in thoracic spine Hemoglobin A1c Today E78.5 - Hyperlipidemia, unspecified, R73.01 - Impaired fasting glucose Lipid Panel Today E78.5 - Hyperlipidemia, unspecified, R73.01 - Impaired fasting glucose Referrals Gastroenterology Referral K21.9 - Gastro-esophageal reflux disease without esophagitis, K58.9 - Irritable bowel syndrome without diarrhea Coding Level of Care Code Est Pt Level 4 (35220) Complex EM visit Add On G2211 Diagnoses Anxiety F41.9 Gastroesophageal reflux disease without esophagitis K21.9 Esophagitis presence: without esophagitis Other irritable bowel syndrome K58.8 Irritable bowel syndrome type: other IFG (impaired fasting glucose) R73.01 Hyperlipemia E78.5 Thoracic back pain M54.6
[2023-12-30 09:05] VITALS: BP 132/78; PULSE 68; RESP 13; O2SAT 98; BMI 39.7
== END 2023-12-30 09:50 | disposition home or self-care (01) ==
PROVIDERS: PCP Physician Assistant Medical; Visit Provider Physician Assistant Medical
DX: K21.9 Gastro-esophageal reflux disease without esophagitis (principal); K58.8 Other irritable bowel syndrome; R73.01 Impaired fasting glucose; F41.9 Anxiety disorder, unspecified; E78.5 Hyperlipidemia, unspecified; M54.6 Pain in thoracic spine
CPT/HCPCS: 99214; G2211

== ENCOUNTER 2024-03-09 14:46 | Outpatient (AMB) | payer OTHER, SELFPAY ==
--- NOTE | 2024-03-09 15:25 | MHC.PC.OV ---
Vital Signs 03/09/24 15:26 Height 5 ft 10 in Weight 269 lb 4 oz BMI 38.6 BP 130/80 Blood Pressure Location Rt brachial Position Sitting Respiration 12 Pulse 72 Pulse Source Pulse Oximeter Pulse Oximetry (%) 98 Oxygen Delivery Method Room Air Intake Visit Reasons: Back pain follow up Intake Note: back pain Allergies No Known Allergies Allergy (Verified 03/09/24 15:26) Tobacco use date assessed: 11/18/23 Dental Screening Dental Screen Date: 11/18/23 HPI HPI Comments History of Present Illness Details This is a 43-year-old male with a past medical history of chronic back pain, chronic left hip pain, chronic pelvic pain, IBS, GERD and impaired fasting glucose presenting for an exacerbation of back and hip pain. Chronic pelvic pain/hip pain/back pain-the patient had an extensive evaluation with multiple specialists. Dr. Hussein ordered an MRI of his left hip which showed degenerative blunting/tear at the anteromedial and anterior lateral labrum. He continues physical therapy. He received a cortisone injection in his left hip at [facility]. He had significant improvement in symptoms after that. Patient's pain flared up again a few weeks ago. Called the office here before he went on a cruise to ask for pain medication to hold him over because he could not get into Orthopedics for another injection. He has used the Percocet sparingly. He has 3 tablets left. If he takes 1 in the morning it lasts all day. [facility] can not see him until 03/29/2024. He endorses severe pain in his left hip radiating to his left back. He has an MRI of his lumbar spine scheduled this Saturday. Insurance will not cover the MRI of the thoracic spine until a 6 week trial of physical therapy is done. He tried meloxicam and ibuprofen for current symptoms without improvement. His job is very physical. 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 He continues to endorse numbness and tingling on the outside of the left leg and tingling in his 2nd toes which comes and goes. He tried cyclobenzaprine, meloxicam, ibuprofen. He is on nortriptyline for chronic pain and IBS. ROS: Constitutional: No unexplained weight loss, fevers or chills. Neurologic: No weakness, loss of bowel or bladder control or foot drop. Physical exam: Constitutional: Alert, in no distress. Respiratory: Clear to auscultation. Cardiovascular: S1 S2 regular. No murmurs. Gastrointestinal: Abdomen soft, non-tender, non-distended. Normal bowel sounds. No palpable masses. Musculoskeletal: Antalgic gait. Lower thoracic and lumbar midline spinal tenderness. Bilateral thoracic and lumbar paraspinal muscle tenderness. Tender bilateral SI joints. Pain with flexion and left lateral bending. Normal extension and right lateral bending. Negative straight leg raises. No footdrop. Extremities: Warm and well perfused. No clubbing, cyanosis or edema. 3+ peripheral pulses bilaterally. Psychiatric: Normal mood and affect [facility] Medical History (Updated 12/30/23 @ 13:26 by IRVING bAbasi) Thoracic back pain IFG (impaired fasting glucose) Hyperlipemia Chronic back pain Obesity Anxiety Chronic left hip pain Chronic pelvic pain in male Hypertension GERD (gastroesophageal reflux disease) Surgical History Hx of hernia repair History of esophagogastroduodenoscopy (EGD) Hx of colonoscopy Family History Mother Diabetes Cancer Father Pacemaker Cancer Social History Household Members: Other Housing: House Alcohol intake: never Patient Tobacco Use Status: Former Tobacco user Tobacco use type: Cigarette Cigarette Packs Per Day: 1 Years Smoked: 15 e-Cigarette/Vaping Use: Never Used Second Hand Smoke Exposure: No Substance Use Type: Marijuana service: No Current occupational status: unemployed 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 Current occupational exposures/hazards: No Cognitive needs: No Hearing needs: No Vision needs: No Physical exam (Primary Care) Vital Signs: Last Vital Signs Pulse 72 03/09/24 15:26 Resp 12 03/09/24 15:26 BP 130/80 03/09/24 15:26 Pulse Ox 98 03/09/24 15:26 Oxygen Delivery Method Room Air 03/09/24 15:26 BMI result Body Mass Index 38.6 Tobacco/Smoking Status: Tobacco use Status Tobacco use date assessed 11/18/23 03/09/24 15:29 Patient Tobacco Use Status Former Tobacco user 03/09/24 15:29 Tobacco use type Cigarette 03/09/24 15:29 e-Cigarette/Vaping Use Never Used 03/09/24 15:29 Coding Level of Care Code Est Pt Level 4 (94277) Complex EM visit Add On G2211 Diagnoses Chronic left hip pain M25.552; G89.29 Acute exacerbation of chronic low back pain M54.50; G89.29 Assessment & Plan Assessment & Plan (1) Chronic left hip pain: Code(s): M25.552 - Pain in left hip; G89.29 - Other chronic pain Category: Medical (2) Acute exacerbation of chronic low back pain: Code(s): M54.50 - Low back pain, unspecified; G89.29 - Other chronic pain Plan Prescribed tapering course of prednisone. Side effects and administration reviewed. He has tolerated this medication in the past. He can use the Percocet as needed for severe pain. He has 3 tablets left. Advised not to drive or operate heavy machinery on this medication. He is in physical therapy. MRI of the lumbar spine is scheduled Saturday. He will schedule a follow up with me in a couple of weeks to review results. He has an upcoming appointment with Orthopedics on 03/29/2024 to readdress hip problems. Medications: New prednisone Take 3 tabs po qam x 3 days, then take 2 tabs po qam x 3 days, then take 1 tab po qam x 3 days, then take 1/2 tab po qam x 2 days 20 tabs 0RF
[2024-03-09 15:26] VITALS: BP 130/80; PULSE 72; RESP 12; O2SAT 98; BMI 38.6
== END 2024-03-09 15:54 | disposition home or self-care (01) ==
PROVIDERS: PCP Physician Assistant Medical; Visit Provider Physician Assistant Medical
DX: M25.552 Pain in left hip (principal); G89.29 Other chronic pain; M54.50 Low back pain, unspecified

== ENCOUNTER → 2024-03-09 14:46 | Outpatient (BNVA) | payer OTHER, SELFPAY | PROVIDERS: PCP Physician Assistant Medical; Visit Provider Physician Assistant Medical | DX: M54.50 Low back pain, unspecified (principal); M25.552 Pain in left hip; G89.29 Other chronic pain | CPT/HCPCS: 99212 ==

== ENCOUNTER → 2024-03-23 07:19 | Outpatient (BNV) | payer OTHER, SELFPAY | PROVIDERS: PCP Physician Assistant Medical; Visit Provider Radiology Diagnostic Radiology | DX: M54.50 Low back pain, unspecified (principal) | CPT/HCPCS: 72148 ==

== ENCOUNTER 2024-03-23 07:20 | Outpatient (REF) | payer OTHER, SELFPAY ==
--- NOTE | ~2024-03-23 | MR_ITS ---
EXAMINATION: MR LUMBAR SPINE WITHOUT CONTRAST CLINICAL INFORMATION: Low back pain, unspecified. Left-sided, left hip pain, heaviness and pelvis. Radiculopathy. COMPARISON: No prior MRI. TECHNIQUE: Multiplanar multisequence MR imaging of the lumbar spine was done without IV contrast. Examination was performed on a 1.5 Xochitl Siemens magnet, utilizing standard sequences. FINDINGS: CORONAL ALIGNMENT: -Normal. SAGITTAL ALIGNMENT: - Normal lordosis. - Normal alignment. LUMBOSACRAL JUNCTION: -Normal. There are 5 [id number] lumbar-type vertebral bodies. VERTEBRAL BODIES/BONE MARROW: -There is now bone marrow edema, or abnormal infiltrating bone marrow signal. -There are mild fatty type endplate changes at L2-3. -There is a small hemangioma at L5. DISCS: -Mild to moderate loss of disc height and signal L2-3, L4-5, and L5-S1. -Remainder of intervertebral discs are preserved. SPINAL CANAL: -Of note, there is congenital spinal canal narrowing throughout the lumbar region, with short pedicles, finding which will exacerbate acquired spondylosis. See below. CONUS MEDULLARIS: -Terminates at mid L1. Morphology and signal is normal. INTRADURAL NERVE ROOTS: - Within normal limits. Axial Disc Space Images: T12-L1: Mild congenital spinal canal narrowing. Minimal shallow diffuse bulging disc present, without significant mass effect upon the thecal sac. There is mild central canal narrowing and mild bilateral neural foraminal narrowing. L1-L2: Mild congenital spinal canal narrowing. No significant disc pathology. Mild hypertrophic degenerative facet changes bilaterally. There is mild central canal narrowing, no significant subarticular recess narrowing, and minimal bilateral neural foraminal narrowing. L2-L3: Congenital spinal canal narrowing. There is a diffuse disc bulge present, concentrically involving both foraminal zones. This indents upon the ventral thecal sac, and coupled with mild to moderate hypertrophic degenerative facet changes, mild dorsal epidural lipomatosis, is resulting in moderate to severe central canal stenosis, with the AP diameter of the thecal sac reduced to 7 mm. There is mild central nerve root crowding. There is moderate bilateral subarticular recess narrowing, and there is moderate bilateral neural foraminal narrowing. L3-L4: Congenital spinal canal narrowing. No significant disc pathology other than minimal physiologic disc bulging. Mild to moderate hypertrophic degenerative facet changes right greater than left. Dorsal epidural lipomatosis. Combination of findings is resulting in moderate central canal stenosis, mild bilateral subarticular recess stenosis, and mild bilateral neural foraminal stenosis. L4-L5: Congenital spinal canal narrowing. There is a diffuse bulging disc present extending into both foraminal zones with a superimposed central extrusion of disc material with associated annular fissuring (series 9, image 19). Coupled with moderate hypertrophic degenerative facet changes bilaterally, mild dorsal ligamentous infolding/hypertrophy, findings are resulting in moderate to severe central canal stenosis, moderate to severe bilateral subarticular recess stenosis with contact and mild impingement of the left greater than right traversing L5 roots. There is moderate bilateral neural foraminal narrowing. L5-S1: Congenital spinal canal narrowing. There is a shallow disc bulge present with a superimposed central disc protrusion, which when coupled with mild to moderate hypertrophic degenerative facet changes is resulting in moderate central canal stenosis. There is moderate bilateral subarticular recess stenosis without definite mass effect upon the traversing S1 roots. There is mild to moderate bilateral neural foraminal narrowing. IMAGED SI JOINTS: -Mild degenerative arthrosis bilaterally. PARAVERTEBRAL AND INCLUDED EXTRASPINAL SOFT TISSUES: -Normal. MR/MR lumbar spine wo con IMPRESSION: 1. Mild to moderate spondylosis superimposed upon a congenitally narrow central canal. 2. There is moderate to severe central canal stenosis at L2-3 with bilateral subarticular recess narrowing. 3. There is moderate central canal stenosis at L3-4. 4. There is moderate to severe central canal stenosis, moderate to severe bilateral subarticular recess stenosis, and moderate bilateral neural foraminal stenosis at L4-5. There is a central disc extrusion with annular fissuring at this level (this is most likely the symptomatic level). 5. Moderate central canal stenosis with bilateral moderate subarticular recess stenosis L5-S1. 6. See the body the report for ancillary findings and further detail. Electronically signed by: Moreno Coleman MD 05/18/2024 09:37 AM EST
== END 2024-03-23 07:21 | disposition home or self-care (01) ==
LOC: HO.MRI 07:20
PROVIDERS: PCP Physician Assistant Medical; Visit Provider Physician Assistant Medical
DX: M54.50 Low back pain, unspecified (principal); G89.29 Other chronic pain
CPT/HCPCS: 72148

== ENCOUNTER 2024-04-06 08:49 | Outpatient (AMB) | payer OTHER, SELFPAY ==
--- NOTE | 2024-04-06 08:55 | MHC.PC.OV ---
Vital Signs 04/06/24 08:59 Height 5 ft 7 in Weight 277 lb 6 oz BMI 43.4 BP 118/88 Blood Pressure Location Lt brachial Position Sitting Pulse 72 Pulse Source Pulse Oximeter Pulse Oximetry (%) 96 Oxygen Delivery Method Room Air Intake Visit Reasons: follow up labs and thoracic back pain Intake Note: Follow up. Needs refill on nortripyline. 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 Chronic pelvic pain/hip pain/back pain-the patient had an extensive evaluation with multiple specialists. Dr. Hussein ordered an MRI of his left hip which showed degenerative blunting/tear at the anteromedial and anterior lateral labrum. He did PT. He received another cortisone injection in his left hip at [facility] on 04/02/24. This was his 2nd injection. He felt relief the 1st day, but he says it is not going as well as the 1 he had during the summer. He had an MRI of his lumbar spine completed in March, and the result is pending. He would like to see Dr. Fitzpatrick. He continues to endorse numbness and tingling on the outside of the left leg and tingling in his 2nd toes which comes and goes and pain that radiates from his lower back to his left hip. His job is very physical. 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 MRI of the thoracic spine was not covered by insurance, and the patient is aware he needs to do 6 weeks of trial of physical therapy. He has not done PT yet, but he is going to call to schedule it. He has tried meloxicam and ibuprofen for pain as well as cyclobenzaprine. He is on nortriptyline for pain and IBS. He did not tolerate amitriptyline. Patient says Tylenol is ineffective. He would like to know if he can try Voltaren gel. He is seeing a therapist for anxiety and OCD. They are talking about referral to a psychiatrist for a medication consult. He is anxious about taking medication and potential side effects. He did not have fasting labs completed yet, but he will do so before his next follow up appointment. ROS: Constitutional: No unexplained weight loss, fever, chills, fatigue or night sweats. Respiratory: No shortness of breath, cough or sputum production. Cardiovascular: No chest pain Gastrointestinal: No vomiting, diarrhea or blood in stool. Neurologic: See HPI Musculoskeletal: See HPI Psychiatric: No SI or HI. Physical exam: Constitutional: Alert, in no distress. Respiratory: Clear to auscultation. Cardiovascular: S1 S2 regular. No murmurs. Gastrointestinal: Abdomen soft, non-tender, non-distended. Normal bowel sounds. No palpable masses. Musculoskeletal: Antalgic gait. Lower thoracic and lumbar midline spinal tenderness. Bilateral thoracic and lumbar paraspinal muscle tenderness. Tender bilateral SI joints. Pain with flexion and left lateral bending. Normal extension and right lateral bending. Negative straight leg raises. No footdrop. Extremities: Warm and well perfused. No clubbing, cyanosis or edema. 3+ peripheral pulses bilaterally. Psychiatric: Normal mood and affect [facility] Medical History (Updated 04/06/24 @ 12:03 by IRVING Abbasi) Hyperlipidemia OCD (obsessive compulsive disorder) Thoracic back pain IFG (impaired fasting glucose) Chronic back pain Obesity Anxiety Chronic left hip pain Chronic pelvic pain in male Hypertension GERD (gastroesophageal reflux disease) Surgical History Hx of hernia repair History of esophagogastroduodenoscopy (EGD) Hx of colonoscopy Family History Mother Diabetes Cancer Father Pacemaker Cancer Social History Household Members: Other Housing: House Alcohol intake: never Patient Tobacco Use Status: Former Tobacco user Tobacco use type: Cigarette Cigarette Packs Per Day: 1 Years Smoked: 15 e-Cigarette/Vaping Use: Never Used Second Hand Smoke Exposure: No Substance Use Type: Marijuana service: No Current occupational status: unemployed 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 Current occupational exposures/hazards: No Cognitive needs: No Hearing needs: No Vision needs: No Questionnaire Thrive Questionnaire I am a: Patient What is your living situation today?: I have a steady place to live Within the past 12 months, did the food you bought not last and you didn't have the money to get more?: Sometimes True Within the past 12 months, did you worry whether your food would run out before you got money to buy more?: Sometimes True Do you have trouble paying for medicines?: No Do you have trouble getting transportation to medical appointments?: I choose not to answer this question Do you have trouble paying your heating and electricity bill?: I choose not to answer this question Do you have trouble taking care of your child, family member or friend?: I choose not to answer this question Do you have trouble with day-to-day activities such as bathing, preparing meals, shopping, managing finances, etc.?: I choose not to answer this question Are you currently unemployed and looking for a job?: I choose not to answer this question Are you interested in more education?: I choose not to answer this question Please select the resources that you would like help with: None Currently or been in a relationship where the following occur: I choose not to answer THRIVE Score: 2 AUDIT C Alcohol Use Questionnaire (AUDIT-C) 1. How often do you have a drink containing alcohol?: Never Total Score: 0 CAL-7 AMB Questionnaire CAL-7 Feeling nervous, anxious, or on edge: 1 = Several days Not being able to stop or control worryin = Several days Worrying too much about different things: 1 = Several days Trouble relaxin = Several days Being so restless that it is hard to sit still: 1 = Several days Becoming easily annoyed or irritable: 1 = Several days Feeling afraid as if something awful might happen: 1 = Several days Total CAL-7 score (0-4 normal; 5-9 mild; 10-14 moderate; 15-21 severe): 7 Source: Developed by Drs. Julian Lawrence, Julieta Munoz, Feng Marte and colleagues, with an educational silvestre from [employer]. Physical exam (Primary Care) Vital Signs: Last Vital Signs Pulse 72 04/06/24 08:59 BP 118/88 04/06/24 08:59 Pulse Ox 96 04/06/24 08:59 Oxygen Delivery Method Room Air 04/06/24 08:59 BMI result Body Mass Index 43.4 Tobacco/Smoking Status: Tobacco use Status Tobacco use date assessed 11/18/23 04/06/24 08:58 Patient Tobacco Use Status Former Tobacco user 04/06/24 08:58 Tobacco use type Cigarette 04/06/24 08:58 e-Cigarette/Vaping Use Never Used 04/06/24 08:58 Currently or been in a relationship where the following occur: I choose not to answer Coding Level of Care Code Est Pt Level 4 (35455) Complex EM visit Add On G2211 Diagnoses Chronic left hip pain M25.552; G89.29 Acute exacerbation of chronic low back pain M54.50; G89.29 IFG (impaired fasting glucose) R73.01 Chronic midline thoracic back pain M54.6; G89.29 Chronicity: chronic Back pain laterality: midline Chronic bilateral low back pain without sciatica M54.50; G89.29 Back pain location: low back pain Back pain laterality: bilateral Sciatica presence: without sciatica Class 3 severe obesity due to excess calories without serious comorbidity with body mass index (BMI) of 40.0 to 44.9 in adult E66.01; Z68.41 Obesity type: due to excess calories Obesity classification: adult class 3 (BMI >= 40) Serious obesity comorbidity presence: without serious comorbidity Body mass index: BMI 40.0-44.9 Anxiety F41.9 OCD (obsessive compulsive disorder) F42.9 Hyperlipidemia E78.5 Assessment & Plan Assessment & Plan (1) Chronic left hip pain: Code(s): M25.552 - Pain in left hip; G89.29 - Other chronic pain Category: Medical (2) Acute exacerbation of chronic low back pain: Code(s): M54.50 - Low back pain, unspecified; G89.29 - Other chronic pain (3) IFG (impaired fasting glucose): Code(s): R73.01 - Impaired fasting glucose Category: Medical (4) Thoracic back pain: Code(s): M54.6 - Pain in thoracic spine Category: Medical Qualifiers: Chronicity: chronic Back pain laterality: midline Qualified Code(s): M54.6 - Pain in thoracic spine; G89.29 - Other chronic pain (5) Chronic back pain: Code(s): M54.9 - Dorsalgia, unspecified; G89.29 - Other chronic pain Category: Medical Qualifiers: Back pain location: low back pain Back pain laterality: bilateral Sciatica presence: without sciatica Qualified Code(s): M54.50 - Low back pain, unspecified; G89.29 - Other chronic pain (6) Obesity: Code(s): E66.9 - Obesity, unspecified Category: Medical Qualifiers: Obesity type: due to excess calories Obesity classification: adult class 3 (BMI >= 40) Serious obesity comorbidity presence: without serious comorbidity Body mass index: BMI 40.0-44.9 Qualified Code(s): E66.01 - Morbid (severe) obesity due to excess calories; Z68.41 - Body mass index [BMI] 40.0-44.9, adult (7) Anxiety: Code(s): F41.9 - Anxiety disorder, unspecified Category: Medical (8) OCD (obsessive compulsive disorder): Code(s): F42.9 - Obsessive-compulsive disorder, unspecified Category: Medical (9) Hyperlipidemia: Code(s): E78.5 - Hyperlipidemia, unspecified Category: Medical Plan The patient we will call Physical therapy to schedule next appointment. S/p cortisone injection 04/02/2024 for left hip. Follow up with [facility]. MRI not read yet. He has the disc. We will refer to the spine Center Continue nortriptyline. Patient has not wanted to increase dosage due to sedation. Prescribed Voltaren gel for patient. Continue therapy. He is going to talk to his therapist about seeing the psychiatrist to discuss medications, but he is not sure he will take them. Reviewed lifestyle modifications for hyperlipidemia and impaired fasting glucose. Patient will return for fasting labs. Follow up in 8 weeks. Reassess thoracic back pain following physical therapy. Medications: New omeprazole 20 mg PO DAILY 90 days 90 caps 3RF nortriptyline 10 mg PO BEDTIME 90 caps 3RF diclofenac sodium 1% (Voltaren Arthritis Pain) apply 4 g to each affected area up to 4 times daily; maximum dose per joint: 16 g/day; maximum total body dose (all combined joints): 32 g/day 100 grams 2RF Discontinued omeprazole Discontinued Reason: Doctor's Order 40 mg PO DAILY 28 caps 2RF Patient Instructions: Call to schedule Gastroenterology appointment
[2024-04-06 08:59] VITALS: BP 118/88; PULSE 72; O2SAT 96; BMI 43.4
== END 2024-04-06 09:41 | disposition home or self-care (01) ==
LOC: HO.HMCFM 08:50
PROVIDERS: PCP Physician Assistant Medical; Visit Provider Physician Assistant Medical
DX: M25.552 Pain in left hip (principal); G89.29 Other chronic pain; E66.01 Morbid (severe) obesity due to excess calories; Z68.41 Body mass index [BMI] 40.0-44.9, adult; M54.50 Low back pain, unspecified; R73.01 Impaired fasting glucose; M54.6 Pain in thoracic spine; F41.9 Anxiety disorder, unspecified; F42.9 Obsessive-compulsive disorder, unspecified; E78.5 Hyperlipidemia, unspecified

== ENCOUNTER → 2024-04-06 08:49 | Outpatient (BNVA) | payer OTHER, SELFPAY | PROVIDERS: PCP Physician Assistant Medical; Visit Provider Physician Assistant Medical | DX: M54.6 Pain in thoracic spine (principal); G89.29 Other chronic pain; M25.552 Pain in left hip; R10.2 Pelvic and perineal pain; K58.9 Irritable bowel syndrome, unspecified; K21.9 Gastro-esophageal reflux disease without esophagitis; R73.01 Impaired fasting glucose; E66.01 Morbid (severe) obesity due to excess calories; M54.50 Low back pain, unspecified; F42.9 Obsessive-compulsive disorder, unspecified; E78.5 Hyperlipidemia, unspecified; Z68.41 Body mass index [BMI] 40.0-44.9, adult; Z87.891 Personal history of nicotine dependence | CPT/HCPCS: 99212 ==

== ENCOUNTER 2024-04-13 08:47 | Outpatient (AMB) | payer OTHER, SELFPAY ==
--- NOTE | 2024-04-13 08:52 | A.SPINEOV_ITS ---
Intake Visit Reasons: LBP Intake Note: Mr. Cuba is here today c/o low back pain that radiates to the waist and legs. 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 He has been working with [facility] getting routine injections for this. He has had a constellation of symptoms revolving around multiple orthopedic issues, which would include low back issues as well. He gets a diffuse low back ache with prolonged standing or prolonged sitting. He is constantly trying to change positions. Sometimes when he is working at his job but actually does not bother him all that much but when he stops and sits down for any length of time all the muscle will tighten up. He does not have any shooting pain down his leg. The main symptom in the lower extremities is the hip pain which has been responding beautifully to injections. He does get some pain in the middle of his back as well. He has gone through physical therapy. He has also gone through medication trials. He has taken Percocet and meloxicam which seems to help some. He uses THC for pain as well. PMH: He has slight hypertension, 2 hernia surgeries, prediabetes. He has history of obesity but actually lost about 100 lb over the last year so. He did not notice a significant improvement in his left hip pain after losing the weight. History of OCD. , GERD. Social hx: He quit smoking, does use THC for pain, no alcohol Medications: Her Triptan, multivitamin, omeprazole, diclofenac, meloxicam, oxycodone Allergies: None Physical exam: Pleasant gentleman no acute distress, full strength of bilateral upper and lower extremities with normal reflexes, normal gait. Imaging review: He is a lumbar MRI done at [place], there is no final report back yet on this but it looks to me like he has some degenerative disc disease at multiple areas including L2-3 L4-5 and L5-S1. I would describe it as [id number] degeneration. There is a small annular tear at L4-5, some crowding of the lateral recess at this level. There is some mild foraminal narrowing as well throughout the lumbar spine but no overt nerve compression. I do not see any evidence of misalignment or disc herniation. There are no Modic endplate changes. Impression: 43-year-old male presents for evaluation of chronic low back pain i n the setting of a host of other orthopedic issues, primarily some kind of tear in his left hip which seems to be bad enough where it will need surgery at some point. It sounds like the [facility] team is trying to delay this as much as possible because he is so young. 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 I showed him his MRI, and reassured him that he does have some [id number] disc degeneration but his back is not completely broken down. It is well-known that many of the findings that we see on his MRI are normal for gentleman of his age and do not necessarily need surgery. The literature is clear that degenerative discs are not always the source of back pain either. Therefore I do not think putting him through surgery to fix the degenerative discs would be the ideal way to resolve his back pain. He has been through some basic conservative management in the form of medications and PT. He is connected with Dr. Hussein as well who can provide injections for him if needed. In the end, I think it is going to come down to the fact that he has a very physical job, he is overweight and his hip issues are all causing him to have back pain. Thank you for allowing us to care for your patient. The total time spent with this visit with this patient was 45 minutes reviewing history, physical exam, lumbar imaging review, and implementation of treatment plan or further diagnostic testing Vito Fitzpatrick MD,PhD [facility] Coding Level of Care Code New Pt Level 4 (03048) Diagnoses Chronic bilateral low back pain without sciatica M54.50; G89.29 Back pain location: low back pain Back pain laterality: bilateral Sciatica presence: without sciatica
== END 2024-04-13 09:47 | disposition home or self-care (01) ==
PROVIDERS: PCP Physician Assistant Medical; Referring Provider Physician Assistant Medical; Visit Provider Physician Assistant
DX: M54.50 Low back pain, unspecified (principal); G89.29 Other chronic pain
CPT/HCPCS: 99204

== ENCOUNTER → 2024-04-13 08:47 | Outpatient (BNVA) | payer OTHER, SELFPAY | PROVIDERS: PCP Physician Assistant Medical; Referring Provider Physician Assistant Medical; Visit Provider Physician Assistant | DX: M54.50 Low back pain, unspecified (principal); G89.29 Other chronic pain | CPT/HCPCS: 99202 ==

== ENCOUNTER 2024-05-11 08:57 | Outpatient (AMB) | payer OTHER, SELFPAY ==
--- NOTE | 2024-05-11 09:04 | A.OFFPC_ITS ---
Vital Signs 05/11/24 09:07 Height 5 ft 10 in Weight 274 lb 2 oz BMI 39.3 BP 118/86 Blood Pressure Location Lt brachial Position Sitting Pulse 75 Pulse Source Pulse Oximeter Pulse Oximetry (%) 99 Oxygen Delivery Method Room Air Intake Visit Reasons: Pain Management Intake Note: Follow up. Possible hemorrhoid and pain. Requesting referral to different GI doctor. Pesticide Control Inspector Required: No Allergies No Known Allergies Allergy (Verified 05/11/24 09:05) Tobacco use date assessed: 05/11/24 Dental Screening Dental Screen Date: 11/18/23 HPI HPI Comments History of Present Illness Details This is a 43-year-old male with a past medical history of chronic back pain, chronic left hip pain, chronic pelvic pain, IBS, GERD and impaired fasting glucose presenting for follow up. Patient was informed and verbally consented to the use of an ambient scribe for clinic note documentation during this visit. He reports that he initially received another left hip injection. He notices improvement in pain this week though initially called last week to say pain was worse. Pain control is still suboptimal, leading to ongoing symptoms affecting his mobility, characterized by difficulty standing for prolonged periods. Documented previously: Chronic pelvic pain/hip pain/back pain-the patient had an extensive evaluation with multiple specialists. Dr. Hussein ordered an MRI of his left hip which showed degenerative blunting/tear at the anteromedial and anterior lateral labrum. He did PT. He received another cortisone injection in his left hip at [facility] on 04/02/24. This was his 2nd injection. He felt relief the 1st day, but he says it is not going as well as the 1 he had during the summer. He had an MRI of his lumbar spine completed in March which showed some degenerative findings, and he had a consult at the spine clinic. No surgical intervention was recommended. He has tried meloxicam and ibuprofen for pain as well as cyclobenzaprine. He is on nortriptyline for pain and IBS. He did not tolerate amitriptyline. Patient says Tylenol is ineffective. He also tried Voltaren gel. In addition, the patient has observed a lump near the rectal region over the past two weeks. He has a history of hemorrhoids, but it feels like a distinct new growth. There is no discharge. It only is uncomfortable if he presses on it. There has been no bleeding or discharge. The patient has a history of irritable bowel syndrome, which has contributed to prior hemorrhoidal issues. The patient also discusses his history of essential hypertension, which remains inadequately controlled, noting elevated diastolic blood pressure readings. He associates some fluctuations in blood pressure with pain and stress. He previously attempted antihypertensive medication but only for short time when he was incarcerated. Anxiety is present, possibly exacerbated by recent family stressors. The patient is currently engaged in bi-weekly therapy sessions. He is concerned that his anxiety, combined with systemic hypertension, poses an ongoing health risk. Patient was informed and verbally consented to the use of an ambient scribe for clinic note documentation during this visit. ROS: - Cardiovascular: Denies recent chest pa in or edema. - Gastrointestinal: Reports a history of irritable bowel syndrome; denies recent vomiting, fever, or chills. - Dermatologic: Reports a lump noted kinjal r the rectal area approximately two weeks ago; denies recent changes such as bleeding or pain. - Neurologic: Denies headache, weakness, seizures, tremors. Physical exam: Constitutional: Alert, in no distress. Respiratory: Clear to auscultation. Cardiovascular: S1 S2 regular. No murmurs. Gastrointestinal: Abdomen soft, non-tender, non-distended. Normal bowel sounds. No palpable masses. Extremities: Warm and well perfused. No clubbing, cyanosis or edema. Rectal exam: MA financial administrative assistant present. External exam conducted. 1 cm nontender firm lump lright perianal area with no erythema, discharge, fluctuance. Psychiatric: Normal mood and affect [facility] Medical History (Updated 05/11/24 @ 09:21 by IRVING Abbasi) Essential hypertension Hyperlipidemia OCD (obsessive compulsive disorder) Thoracic back pain IFG (impaired fasting glucose) Chronic back pain Obesity Anxiety Chronic left hip pain Chronic pelvic pain in male Hypertension GERD (gastroesophageal reflux disease) Surgical History Hx of hernia repair History of esophagogastroduodenoscopy (EGD) Hx of colonoscopy Family History (Updated 05/11/24 @ 09:08 by Meagan Rosenberg CMA) Mother Diabetes Cancer OCD (obsessive compulsive disorder) Father Pacemaker Cancer Other FH: mental illness Social History (Updated 05/11/24 @ 09:08 by Meagan Rosenberg CMA) Household Members: Other Housing: House Alcohol intake: current Comment: rarely Patient Tobacco Use Status: Former Tobacco user Tobacco use type: Cigarette Cigarette Packs Per Day: 1 Years Smoked: 15 e-Cigarette/Vaping Use: Never Used Second Hand Smoke Exposure: No Substance Use Type: Marijuana service: No Current occupational status: unemployed 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 Current occupational exposures/hazards: No Cognitive needs: No Hearing needs: No Vision needs: No Questionnaire Thrive Questionnaire Date Thrive assessed: 04/06/24 I am a: Patient What is your living situation today?: I have a steady place to live Within the past 12 months, did the food you bought not last and you didn't have the money to get more?: Sometimes True Within the past 12 months, did you worry whether your food would run out before you got money to buy more?: Sometimes True Do you have trouble paying for medicines?: No Do you have trouble getting transportation to medical appointments?: I choose not to answer this question Do you have trouble paying your heating and electricity bill?: I choose not to answer this question Do you have trouble taking care of your child, family member or friend?: I choose not to answer this question Do you have trouble with day-to-day activities such as bathing, preparing meals, shopping, managing finances, etc.?: I choose not to answer this question Are you currently unemployed and looking for a job?: I choose not to answer this question Are you interested in more education?: I choose not to answer this question Please select the resources that you would like help with: None Currently or been in a relationship where the following occur: I choose not to answer THRIVE Score: 2 Physical exam (Primary Care) Vital Signs: Last Vital Signs Pulse 75 05/11/24 09:07 BP 118/86 05/11/24 09:07 Pulse Ox 99 05/11/24 09:07 Oxygen Delivery Method Room Air 05/11/24 09:07 BMI result Body Mass Index 39.3 Tobacco/Smoking Status: Tobacco use Status Tobacco use date assessed 05/11/24 05/11/24 09:11 Patient Tobacco Use Status Former Tobacco user 05/11/24 09:11 Tobacco use type Cigarette 05/11/24 09:11 e-Cigarette/Vaping Use Never Used 05/11/24 09:11 Thrive Assessment: Date of Thrive Assessment Date Thrive assessed 04/06/24 05/11/24 09:11 Currently or been in a relationship where the following occur: I choose not to answer Coding Level of Care Code Est Pt Level 4 (47382) Complex EM visit Add On G2211 Diagnoses Chronic left hip pain M25.552; G89.29 Acute exacerbation of chronic low back pain M54.50; G89.29 IFG (impaired fasting glucose) R73.01 Chronic midline thoracic back pain M54.6; G89.29 Back pain laterality: midline Chronicity: chronic Chronic bilateral low back pain without sciatica M54.50; G89.29 Back pain laterality: bilateral Back pain location: low back pain Sciatica presence: without sciatica Class 3 severe obesity due to excess calories without serious comorbidity with body mass index (BMI) of 40.0 to 44.9 in adult E66.01; Z68.41 Body mass index: BMI 40.0-44.9 Obesity classification: adult class 3 (BMI >= 40) Obesity type: due to excess calories Serious obesity comorbidity presence: without serious comorbidity Anxiety F41.9 OCD (obsessive compulsive disorder) F42.9 Hyperlipidemia E78.5 Assessment & Plan Assessment & Plan (1) Chronic left hip pain: Code(s): M25.552 - Pain in left hip; G89.29 - Other chronic pain Category: Medical (2) Acute exacerbation of chronic low back pain: Code(s): M54.50 - Low back pain, unspecified; G89.29 - Other chronic pain (3) IFG (impaired fasting glucose): Code(s): R73.01 - Impaired fasting glucose Category: Medical (4) Thoracic back pain: Code(s): M54.6 - Pain in thoracic spine Category: Medical Qualifiers: Back pain laterality: midline Chronicity: chronic Qualified Code(s): M54.6 - Pain in thoracic spine; G89.29 - Other chronic pain (5) Chronic back pain: Code(s): M54.9 - Dorsalgia, unspecified; G89.29 - Other chronic pain Category: Medical Qualifiers: Back pain laterality: bilateral Back pain location: low back pain Sciatica presence: without sciatica Qualified Code(s): M54.50 - Low back pain, unspecified; G89.29 - Other chronic pain (6) Obesity: Code(s): E66.9 - Obesity, unspecified Category: Medical Qualifiers: Body mass index: BMI 40.0-44.9 Obesity classification: adult class 3 (BMI >= 40) Obesity type: due to excess calories Serious obesity comorbidity presence: without serious comorbidity Qualified Code(s): E66.01 - Morbid (severe) obesity due to excess calories; Z68.41 - Body mass index [BMI] 40.0-44.9, adult (7) Anxiety: Code(s): F41.9 - Anxiety disorder, unspecified Category: Medical (8) OCD (obsessive compulsive disorder): Code(s): F42.9 - Obsessive-compulsive disorder, unspecified Category: Medical (9) Hyperlipidemia: Code(s): E78.5 - Hyperlipidemia, unspecified Category: Medical Plan 1. Chronic pain-continue nortriptyline. Trial of gabapentin 300 mg 3 times daily as needed for pain. Advised patient he can take this on a regular basis. Reviewed potential side effects including dizziness, sedation, brain fog. Advised not to drive or operate heavy machinery if he experiences the side effects. Followed by Orthopedics. Seen by physiatry. Neurosurgery consult appreciated. No indication for surgical management. He was instructed to do physical therapy for his thoracic back pain since his MR I was not covered and follow up after at least a 6 week trial. 2. Essential Hypertension: Initiate Losartan at low dose. Monitor blood pressure regularly and incorporate necessary dietary and lifestyle modifications. Plan for follow-up labs to check potassium levels and renal function in the upcoming weeks. Side effects reviewed with the patient. 4. Perirectal mass: Differential includes cyst, thrombosed hemorrhoid, malignancy. Referred urgently to Colorectal surgery for evaluation. Warning signs warranting ER evaluation reviewed. 5. Irritable Bowel Syndrome: Currently managed with Nortriptyline and diet. 6. Anxiety Disorder: Continue with current psychotherapy sessions. Patient has a follow up scheduled in June. Orders: Orders Basic Metabolic Panel Today I10 - Essential (primary) hypertension Medications: New losartan 25 mg PO DAILY 90 tabs 0RF gabapentin 300 mg PO TID PRN 90 caps 0RF pain
[2024-05-11 09:07] VITALS: BP 118/86; PULSE 75; O2SAT 99; BMI 39.3
== END 2024-05-11 10:49 | disposition home or self-care (01) ==
PROVIDERS: PCP Physician Assistant Medical; Visit Provider Physician Assistant Medical
DX: M25.552 Pain in left hip (principal); G89.29 Other chronic pain; E66.01 Morbid (severe) obesity due to excess calories; Z68.41 Body mass index [BMI] 40.0-44.9, adult; M54.50 Low back pain, unspecified; R73.01 Impaired fasting glucose; M54.6 Pain in thoracic spine; F41.9 Anxiety disorder, unspecified; F42.9 Obsessive-compulsive disorder, unspecified; E78.5 Hyperlipidemia, unspecified

== ENCOUNTER → 2024-05-11 08:57 | Outpatient (BNVA) | payer OTHER, SELFPAY | PROVIDERS: PCP Physician Assistant Medical; Visit Provider Physician Assistant Medical | DX: G89.29 Other chronic pain (principal); M25.552 Pain in left hip; M54.50 Low back pain, unspecified; M54.6 Pain in thoracic spine; R73.01 Impaired fasting glucose; E66.01 Morbid (severe) obesity due to excess calories; Z68.41 Body mass index [BMI] 40.0-44.9, adult; F41.9 Anxiety disorder, unspecified; F42.9 Obsessive-compulsive disorder, unspecified; E78.5 Hyperlipidemia, unspecified; I10 Essential (primary) hypertension; K62.89 Other specified diseases of anus and rectum; K58.9 Irritable bowel syndrome, unspecified | CPT/HCPCS: 99212 ==

== ENCOUNTER 2024-06-08 08:59 | Outpatient (AMB) | payer OTHER, SELFPAY ==
--- NOTE | 2024-06-08 09:08 | A.OFFPC_ITS ---
Vital Signs 06/08/24 09:10 Height 5 ft 10 in Weight 276 lb 4 oz BMI 39.6 BP 126/86 Blood Pressure Location Lt brachial Position Sitting Pulse 67 Pulse Source Pulse Oximeter Pulse Oximetry (%) 97 Oxygen Delivery Method Room Air Intake Visit Reasons: review lab results/follow up back Intake Note: Follow up Property Supervisor Required: No Allergies No Known Allergies Allergy (Verified 06/08/24 09:08) Tobacco use date assessed: 05/11/24 Dental Screening Dental Screen Date: 11/18/23 HPI HPI Comments History of Present Illness Details This is a 43-year-old male with a past medical history of chronic back pain, chronic left hip pain, chronic pelvic pain, IBS, GERD and impaired fasting glucose presenting for follow up. Chronic pain- Pain control is still suboptimal, leading to ongoing symptoms affecting his mobility, characterized by difficulty standing for prolonged periods. The patient had an extensive evaluation with multiple specialists. Dr. Hussein ordered an MRI of his left hip which showed degenerative blunting/tear at the anteromedial and anterior lateral labrum. He did PT. He has received 3 left hip injections. He found the 1st to be helpful, and the last 2 injections did not help. He had an MRI of his lumbar spine completed in March which showed some degenerative findings, and he had a consult at the spine clinic. No surgical intervention was recommended. He has tried meloxicam and ibuprofen for pain as well as cyclobenzaprine. He is on nortriptyline for pain and IBS. He did not tolerate side effects of amitriptyline and duloxetine. Patient says Tylenol is ineffective. He also tried Voltaren gel. He is currently taking gabapentin 300 mg 3 times a day. He has an appointment at [facility] in early July. He has a consult at [facility] on 07/02/24. He endorses right shoulder pain x 4-5 months. Progressively worsening. He is left handed. Pain is worse when he tries to lift his arm over his head. He has a very physically demanding job. Has been taking days off here and there. The patient also discusses his history of essential hypertension, which remains inadequately controlled, noting elevated diastolic blood pressure readings. He associates some fluctuations in blood pressure with pain and stress. He is taking losartan 25 mg daily. Anxiety is present, possibly exacerbated by recent family stressors and chronic pain. The patient is currently engaged in bi-weekly therapy sessions. ROS: - Cardiovascular: Denies recent chest pa in or edema. - Gastrointestinal: Reports a history of irritable bowel syndrome; denies recent vomiting, fever, or chills. - Neurologic: Denies headache, weakness, seizures, tremors. Physical exam: Constitutional: Alert, in no distress. Respiratory: Clear to auscultation. Cardiovascular: S1 S2 regular. No murmurs. Gastrointestinal: Abdomen soft, non-tender, non-distended. Normal bowel sounds. No palpable masses. Extremities: Warm and well perfused. No clubbing, cyanosis or edema. Right Shoulder: Positive empty can maneuver, right shoulder strength 4/5, decreased right shoulder abduction. Psychiatric: Normal mood and affect [facility] Medical History (Updated 06/08/24 @ 09:24 by IRVING Abbasi) Right shoulder pain Right hip pain Mass of perianal area Essential hypertension Hyperlipidemia OCD (obsessive compulsive disorder) Thoracic back pain IFG (impaired fasting glucose) Chronic back pain Obesity Anxiety Chronic left hip pain Chronic pelvic pain in male Hypertension GERD (gastroesophageal reflux disease) Surgical History Hx of hernia repair History of esophagogastroduodenoscopy (EGD) Hx of colonoscopy Family History (Updated 05/11/24 @ 09:08 by Meagan Rosenberg CMA) Mother Diabetes Cancer OCD (obsessive compulsive disorder) Father Pacemaker Cancer Other FH: mental illness Social History (Updated 05/11/24 @ 09:08 by Meagan Rosenberg CMA) Household Members: Other Housing: House Alcohol intake: current Comment: rarely Patient Tobacco Use Status: Former Tobacco user Tobacco use type: Cigarette Cigarette Packs Per Day: 1 Years Smoked: 15 e-Cigarette/Vaping Use: Never Used Second Hand Smoke Exposure: No Substance Use Type: Marijuana service: No Current occupational status: unemployed 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 Current occupational exposures/hazards: No Cognitive needs: No Hearing needs: No Vision needs: No Questionnaire Thrive Questionnaire Date Thrive assessed: 04/06/24 I am a: Patient What is your living situation today?: I have a place to live, but I am worried about losing it in the future Within the past 12 months, did the food you bought not last and you didn't have the money to get more?: I choose not to answer this question Within the past 12 months, did you worry whether your food would run out before you got money to buy more?: I choose not to answer this question Do you have trouble paying for medicines?: I choose not to answer this question Do you have trouble getting transportation to medical appointments?: I choose not to answer this question Do you have trouble paying your heating and electricity bill?: I choose not to answer this question Do you have trouble taking care of your child, family member or friend?: I choose not to answer this question Do you have trouble with day-to-day activities such as bathing, preparing meals, shopping, managing finances, etc.?: I choose not to answer this question Are you currently unemployed and looking for a job?: I choose not to answer this question Are you interested in more education?: I choose not to answer this question Please select the resources that you would like help with: None Currently or been in a relationship where the following occur: I choose not to answer THRIVE Score: 1 AUDIT C Alcohol Use Questionnaire (AUDIT-C) 1. How often do you have a drink containing alcohol?: Monthly or less 2. How many drinks containing alcohol do you have on a typical day when you are drinking?: 1 or 2 3. How often do you have six or more drinks on one occasion?: Less than monthly Total Score: 2 CAL-7 AMB Questionnaire CAL-7 Feeling nervous, anxious, or on edge: 1 = Several days Not being able to stop or control worryin = Several days Worrying too much about different things: 1 = Several days Trouble relaxin = Several days Being so restless that it is hard to sit still: 1 = Several days Becoming easily annoyed or irritable: 1 = Several days Feeling afraid as if something awful might happen: 1 = Several days Total CAL-7 score (0-4 normal; 5-9 mild; 10-14 moderate; 15-21 severe): 7 Source: Developed by Drs. Julian Lawrence, Julieta Munoz, Feng Marte and colleagues, with an educational silvestre from [employer] Physical exam (Primary Care) Vital Signs: Last Vital Signs Pulse 67 06/08/24 09:10 BP 126/86 06/08/24 09:10 Pulse Ox 97 06/08/24 09:10 Oxygen Delivery Method Room Air 06/08/24 09:10 BMI result Body Mass Index 39.6 Tobacco/Smoking Status: Tobacco use Status Tobacco use date assessed 05/11/24 06/08/24 09:12 Patient Tobacco Use Status Former Tobacco user 06/08/24 09:12 Tobacco use type Cigarette 06/08/24 09:12 e-Cigarette/Vaping Use Never Used 06/08/24 09:12 Thrive Assessment: Date of Thrive Assessment Date Thrive assessed 04/06/24 06/08/24 09:12 Currently or been in a relationship where the following occur: I choose not to answer Coding Level of Care Code Est Pt Level 4 (63978) Complex EM visit Add On G2211 Diagnoses Chronic left hip pain M25.552; G89.29 Acute exacerbation of chronic low back pain M54.50; G89.29 IFG (impaired fasting glucose) R73.01 Chronic midline thoracic back pain M54.6; G89.29 Chronicity: chronic Back pain laterality: midline Chronic bilateral low back pain without sciatica M54.50; G89.29 Back pain location: low back pain Back pain laterality: bilateral Sciatica presence: without sciatica Class 3 severe obesity due to excess calories without serious comorbidity with body mass index (BMI) of 40.0 to 44.9 in adult E66.01; Z68.41 Obesity type: due to excess calories Obesity classification: adult class 3 (BMI >= 40) Serious obesity comorbidity presence: without serious comorbidity Body mass index: BMI 40.0-44.9 Anxiety F41.9 OCD (obsessive compulsive disorder) F42.9 Hyperlipidemia E78.5 Assessment & Plan Assessment & Plan (1) Chronic left hip pain: Code(s): M25.552 - Pain in left hip; G89.29 - Other chronic pain Category: Medical (2) Acute exacerbation of chronic low back pain: Code(s): M54.50 - Low back pain, unspecified; G89.29 - Other chronic pain (3) IFG (impaired fasting glucose): Code(s): R73.01 - Impaired fasting glucose Category: Medical (4) Thoracic back pain: Code(s): M54.6 - Pain in thoracic spine Category: Medical Qualifiers: Chronicity: chronic Back pain laterality: midline Qualified Code(s): M54.6 - Pain in thoracic spine; G89.29 - Other chronic pain (5) Chronic back pain: Code(s): M54.9 - Dorsalgia, unspecified; G89.29 - Other chronic pain Category: Medical Qualifiers: Back pain location: low back pain Back pain laterality: bilateral Sciatica presence: without sciatica Qualified Code(s): M54.50 - Low back pain, unspecified; G89.29 - Other chronic pain (6) Obesity: Code(s): E66.9 - Obesity, unspecified Category: Medical Qualifiers: Obesity type: due to excess calories Obesity classification: adult c lass 3 (BMI >= 40) Serious obesity comorbidity presence: without serious comorbidity Body mass index: BMI 40.0-44.9 Qualified Code(s): E66.01 - Morbid (severe) obesity due to excess calories; Z68.41 - Body mass index [BMI] 40.0- 44.9, adult (7) Anxiety: Code(s): F41.9 - Anxiety disorder, unspecified Category: Medical (8) OCD (obsessive compulsive disorder): Code(s): F42.9 - Obsessive-compulsive disorder, unspecified Category: Medical (9) Hyperlipidemia: Code(s): E78.5 - Hyperlipidemia, unspecified Category: Medical Plan Chronic pain-continue nortriptyline. Trial increase of gabapentin to 600 mg 3 times daily. Reviewed potential side effects including dizziness, sedation, brain fog. Advised not to drive or operate heavy machinery if he experiences the side effects. Followed by Orthopedics. Follow up in July. Consult this month with [facility]. Neurosurgery consult appreciated. No indication for surgical management. Right shoulder pain-ordered x-ray and referred to [facility]. Pain management as above. Essential Hypertension: Increase losartan to 50 mg daily. Monitor blood pressure regularly and incorporate necessary dietary and lifestyle modifications. Check labs today. Side effects reviewed with patient. Irritable Bowel Syndrome: Currently managed with Nortriptyline and diet. Anxiety Disorder: Continue with current psychotherapy sessions. Follow up in 6 weeks. Orders: Orders XR shoulder RT min 2V Today M25.511 - Pain in right shoulder Referrals Orthopedics Referral M25.511 - Pain in right shoulder Medications: New oxycodone-acetaminophen 5-325 mg Partial Fill upon patient request. 1 tab PO Q8H PRN 20 tabs 0RF pain losartan 50 mg PO DAILY 90 tabs 0RF gabapentin 600 mg PO TID 90 tabs 0RF Discontinued losartan Discontinued Reason: Doctor's Order 25 mg PO DAILY 90 tabs 0RF
[2024-06-08 09:10] VITALS: BP 126/86; PULSE 67; O2SAT 97; BMI 39.6
== END 2024-06-08 09:37 | disposition home or self-care (01) ==
PROVIDERS: PCP Physician Assistant Medical; Visit Provider Physician Assistant Medical
DX: M25.552 Pain in left hip (principal); G89.29 Other chronic pain; E66.01 Morbid (severe) obesity due to excess calories; Z68.41 Body mass index [BMI] 40.0-44.9, adult; M54.50 Low back pain, unspecified; R73.01 Impaired fasting glucose; M54.6 Pain in thoracic spine; F41.9 Anxiety disorder, unspecified; F42.9 Obsessive-compulsive disorder, unspecified; E78.5 Hyperlipidemia, unspecified

== ENCOUNTER → 2024-06-08 08:59 | Outpatient (BNVA) | payer OTHER, SELFPAY | PROVIDERS: PCP Physician Assistant Medical; Visit Provider Physician Assistant Medical | DX: M25.552 Pain in left hip (principal); M54.50 Low back pain, unspecified; M54.6 Pain in thoracic spine; G89.29 Other chronic pain; R73.01 Impaired fasting glucose; E66.01 Morbid (severe) obesity due to excess calories; Z68.41 Body mass index [BMI] 40.0-44.9, adult; F41.9 Anxiety disorder, unspecified; F42.9 Obsessive-compulsive disorder, unspecified; E78.5 Hyperlipidemia, unspecified; K58.9 Irritable bowel syndrome, unspecified; I10 Essential (primary) hypertension; Z79.899 Other long term (current) drug therapy | CPT/HCPCS: 99212 ==

== ENCOUNTER 2024-06-08 09:41 | Outpatient (REF) | payer OTHER, SELFPAY ==
[2024-06-08 12:16] LABS: Anion Gap 10 (12-20); Blood Urea Nitrogen 14 mg/dL (9-16); Calcium 9.2 mg/dL (8.4-10.2); Carbon Dioxide 25 mmol/L (22-29); Chloride 109 mmol/L (96-108); Cholesterol 264 mg/dL (<200); Estimated Glomerular Filt Rate > 60; Glucose Random 112 mg/dL (60-115); HDL Cholesterol 47 mg/dL (>40); LDL Cholesterol Calculated 204 mg/dL (<100); Potassium 4.6 mmol/L (3.3-5.1); Sodium 139 mmol/L (135-145); Triglycerides 67 mg/dL (<150)
[2024-06-08 12:27] LABS: Estimated Average Glucose 94 mg/dL; Hemoglobin A1C 126.2979 umol/L; Hemoglobin A1c % 4.9 % (<6.0); Total Hemoglobin (HGBA1C) 4169.1251 umol/L
== END 2024-06-08 09:42 | disposition home or self-care (01) ==
LOC: HO.WFDLDS 09:41
PROVIDERS: Visit Provider Physician Assistant Medical
DX: I10 Essential (primary) hypertension (principal); R73.01 Impaired fasting glucose; E78.5 Hyperlipidemia, unspecified
CPT/HCPCS: 36415; 80048; 80061; 83036

== ENCOUNTER 2024-06-15 12:17 | Outpatient (REF) | payer OTHER, SELFPAY ==
--- NOTE | ~2024-06-15 | XR_ITS ---
EXAMINATION: XR SHOULDER 2 OR MORE VIEWS RIGHT HISTORY: M25.511 - Pain in right shoulder COMPARISON: There are no prior studies available for comparison. FINDINGS: Five views of the right shoulder are submitted. Osseous mineralization is normal. There is no fracture or dislocation. The joint spaces are preserved. The soft tissues are unremarkable. XR/XR shoulder RT min 2V IMPRESSION: Unremarkable examination of the right shoulder. Electronically signed by: Julian Antonio MD 06/17/2024 09:49 AM SEVEN
== END 2024-06-15 12:18 | disposition home or self-care (01) ==
LOC: HO.XRAY 12:17
PROVIDERS: PCP Physician Assistant Medical; Visit Provider Physician Assistant Medical
DX: M25.511 Pain in right shoulder (principal)
CPT/HCPCS: 73030

== ENCOUNTER → 2024-06-15 12:22 | Outpatient (BNV) | payer OTHER, SELFPAY | PROVIDERS: PCP Physician Assistant Medical; Visit Provider Radiology Diagnostic Radiology | DX: M25.511 Pain in right shoulder (principal) | CPT/HCPCS: 73030 ==

== ENCOUNTER 2024-06-17 08:49 | Emergency (ER) | payer OTHER, SELFPAY ==
--- OUTSIDE RECORDS SUMMARY | 2024-06-17 09:02 | XMS_ITS | Continuity of Care Document ---
Author Organization [facility] Address [address] [place] [address] ve [address] [place] [address]- Care Team Providers Care Sort Operations Supervisor Name Role Phone Glendy Georges Primary Care Physician [phone] Encounter [facility] Date(s): 05/15/24 - 06/14/[address] [place] [address]- Encounter Type: Triage Allergies, Adverse Reactions, Alerts No Known Allergies Immunizations Given and Recorded Vaccine Date Status Refusal Reason SARS-CoV-2 (COVID-19) [id number] vaccine 01/30/22 R ecorded Medications hydrocortisone 2.5% topical cream 1 application, Topically, 2 times a day, for 14 days, apply in a thin film internally and externally to anus and rub in gently. Take 2 weeks off in between treatment., # 30 Gm, 1 Refills, Acute 07/06/24 1:52:00 PM EST, 06/08/24 1:52:00 PM EST, Cream, [id number], Partial fill upon patient request if the prescription is for a schedule II opioid drug., 1 application Topically 2 times a day,x14 days,Instr:apply in a thin film internally and externally to anus and rub in gently. Take 2 weeks offin between treatment., 179, cm, 06/08/24 13:13:00 EST, Height, 121, kg, 02/19/24 11:22:00 EDT, Dry Weight Start Date: 06/08/24 Stop Date: 07/06/24 Status: Ordered Quantity: 30.0 Unit: g Repeat number: 2 meloxicam 15 mg oral tablet 1 tablet, By Mouth, Daily, PRN NEEDED FOR PAIN, # 30 tablet, 1 Refills, Maintenance, 11/19/23 6:25:00 PM EDT, [facility]/pharmacy #[id number], 180, cm, 09/10/23 15:13:00 EDT, Height, 134.8, kg, 03/17/23 14:50:00 EDT, Dry Weight Start Date: 11/19/23 Status: Ordered Quantity: 30.0 Unit: tablet Repeat number: 2 nortriptyline 10 mg oral capsule 20 mg, 2, capsule, By Mouth, Daily at bedtime, Replaces amitriptyline, # 60 capsule, Refills 5, Tot. Refills 5, Maintenance, 05/21/23 1:08:00 PM EST, [id number] Partial fill upon patient request if the prescription is for a schedule II opioid drug., 180, cm, 05/21/23 12:55:00 EST, Height, 134.8, kg, 03/17/23 14:50:00 EDT, Dry Weight Start Date: 05/21/23 Status: Ordered Quantity: 60.0 Unit: capsule Repeat number: 6 omeprazole 40 mg oral enteric coated capsule 1 capsule, By Mouth, Daily, # 90 capsule, 1 Refills, Maintenance, 08/26/23 3:36:00 PM EDT, [facility] [id number], 180, cm, 05/21/23 12:55:00 EST, Height, 134.8, kg, 03/17/23 14:50:00 EDT, Dry Weight Start Date: 08/26/23 Status: Ordered Quantity: 90.0 Unit: capsule Repeat number: 1 Oncovite Multiple Vitamins oral tablet By Mouth, Daily, 0 Refills, Maintenance, 11/22/22 8:48:00 AM EDT, Partial fill upon patient request if the prescription is for a schedule II opioid drug. Start Date: 11/22/22 Status: Ordered Repeat number: 1 Problem List Condition Confirmation Course Effective Dates [...] colon due 05/2030 Confirmed Active Severe obesity (BMI 35.0-39.9) with comorbidity Confirmed Active Fatty liver Confirmed Active Social History Social History Type Response Smoking Status Former smoker, quit more than 30 days ago entered on: 12/16/22 Sex Sex Representation Male (finding) Patient Care team information Care Team Personnel Name: Mabel Light RN Position: S RN Member Role: Primary Care Nurse Name: Glendy Georges Position: Reference Physician Member Role: PCP Address: [address] [place] [id number] Telecom: Care Team Related Persons Name: SILVER RIVERA Name: HUNTER RIVERA Name: BRUCE RIVERA Insurance Providers Guarantor name: IGOR RIVERA Health Plan Information #: 1 Payer: [employer] Member Number: NA Policy Number: NA Group Number: NA
--- OUTSIDE RECORDS SUMMARY | 2024-06-17 09:02 | XMS_ITS | Continuity of Care Document ---
Author Organization [facility] Address [address] [place] [address] [address] [place] [address]- Care Team Providers Care Carburetor Expert Name Role Phone Glendy Georges Primary Care Physician [id number] Date[facility]s): 06/08/24 - 06/15/[address] [place] [address]- Encounter Diagnosis Hemorrhoids(Discharge Diagnosis) - 06/08/24 Anal lesion(Discharge Diagnosis) - 06/08/24 Attending Physician: Brandy Macias NP Referring Physician: Glendy Georges Encounter Type: Office Visit Allergies, Adverse Reactions, Alerts No Known Allergies Immunizations Given and Recorded Vaccine Date Status Refusal Reason SARS-CoV-2 (COVID-19) [id number] vaccine 01/30/22 R ecorded Medications hydrocortisone 2.5% topical cream 1 application, Topically, 2 times a day, for 14 days, apply in a thin film internally and externally to anus and rub in gently. Take 2 weeks off in between treatment., # 30 Gm, 1 Refills, Acute 07/06/24 1:52:00 PM EST, 06/08/24 1:52:00 PM EST, Cream, [id number], Partial fill upon patient request if the [...] 1 Refills, Maintenance, 11/19/23 6:25:00 PM EDT, [facility]/pharmacy #[id number], 180, cm, 09/10/23 15:13:00 EDT, Height, 134.8, kg, 03/17/23 14:50:00 EDT, Dry Weight Start Date: 11/19/23 Status: Ordered Quantity: 30.0 Unit: tablet Repeat number: 2 nortriptyline 10 mg oral capsule 20 mg, 2, capsule, By Mouth, Daily at bedtime, Replaces amitriptyline, # 60 capsule, Refills 5, Tot. Refills 5, Maintenance, 05/21/23 1:08:00 PM EST, [id number] Partial fill upon patient request if the prescription is for a schedule II opioid drug., 180, cm, 05/21/23 12:55:00 EST, Height, 134.8, kg, 03/17/23 14:50:00 EDT, Dry Weight Start Date: 05/21/23 Status: Ordered Quantity: 60.0 Unit: capsule Repeat number: 6 omeprazole 40 mg oral enteric coated capsule 1 capsule, By Mouth, Daily, # 90 capsule, 1 Refills, Maintenance, 08/26/23 3:36:00 PM EDT, [facility] [id number], 180, cm, 05/21/23 12:55:00 EST, Height, 134.8, [...] comorbidity Confirmed Active Fatty liver Confirmed Active Diagnosis Diagnosis Type Effective Dates Health Status Clini ann Service Informant Hemorrhoids Discharge Diagnosis 06/08/24 Anal lesion Discharge Diagnosis 06/08/24 Vital Signs Most recent to oldest [Reference Range]: 1 Height 179 cm (06/08/24 1:13 PM) Weight 126.1 kg (06/08/24 1:13 PM) Oxygen Saturation [94-100 %] 100 % (06/08/24 1:13 PM) Pulse Rate [55-90 bpm] 66 bpm (06/08/24 1:13 PM) Body Mass Index [18.5-24.99 kg/m2] 39.36 kg/m2 *>HHI* (06/08/24 1:13 PM) Blood Pressure [90-138/55-84 mm Hg] 159/ 86mm Hg *H* (06/08/24 1:13 PM) Respiratory Rate [16-30 br/min] 17 br/mi n (06/08/24 1:13 PM) Temperature [96.8-100.4 DegF] 97.9 DegF (06/08/24 1:13 PM) Social History Social History Type Response Smoking Status Former smoker, quit more than 30 days ago entered on: 12/16/22 Sex Sex Representation Male (finding) Patient Care team information Care Team Personnel Name: Nadege ORTIZ, Mabel Position: S RN Member Role: Primary Care Nurse Name: Glendy Georges Position: Reference Physician Member Role: PCP Address: [address] [place] [address] [place] [address]- Telecom: Care Team Related Persons Name: SILVER RIVERA Name: HUNTER RIVERA Name: BRUCE RIVERA Insurance Providers Guarantor name: IGOR RIVERA [facility] Plan Information #: 3 Payer: [employer] Member Number: [id number] Policy Number: HILDA Group Number: NA Health Plan Information #: 2 Payer: [facility] Member Number: [id number] Policy Number: HILDA Group Number: [id number] Health Plan Information #: 1 Payer: [employer] Member Number: [id number] Policy Number: HILDA Group Number: NA
[2024-06-17 09:07] VITALS: BP 139/103; PULSE 71; RESP 18; TEMP 37.1; O2SAT 98; BMI 39.5
--- NOTE | 2024-06-17 09:52 | ED_ITS ---
HPI - Extremity Problem General Chief complaint: Extremity Injury, Upper Stated complaint: R Shoulder Pain No Injury Time Seen by Provider: 06/17/24 09:52 Source: patient Mode of arrival: ambulatory Limitations: no limitations History of Present Illness ED Provider: Lilian Miller PA-C HPI Narrative: Patient is a 43 year old assigned male at with a history of GERD, chronic back pain, HTN, and OCD presenting to the emergency department today with persistent and worsening right shoulder pain. Patient states that for years he has been having trouble with his right shoulder but the last few weeks it has gotten progressively worse - losing ROM and having pain that radiates into his neck in a spasm fashion. Patient denies any dizziness, lightheadedness, abdominal pain, nausea, vomiting, fever, chills, blurry vision, double vision, loss of vision, chest pain, difficulty breathing, shortness of breath, back pain, night sweats, pain with urination, increased urinary frequency, increased urinary urgency, blood in his urine or stool, syncope or a near syncopal episode, recent trauma or falls, bowel incontinence, bladder incontinence, or any other complaints at this time. Patient is left hand dominant. MD Complaint: extremity pain Relieving factors: immobilization Exacerbating factors: range of motion Associated symptoms: denies other symptoms Related Data Home Medications ?Medication ?Instructions ?Recorded ?Confirmed multivitamin 1 tab PO DAILY 11/18/23 Previous Rx's ?Medication ?Instructions ?Recorded nortriptyline 10 mg capsule 10 mg PO BEDTIME #90 caps 04/06/24 omeprazole 20 mg capsule,delayed 20 mg PO DAILY 90 days #90 caps 04/06/24 release gabapentin 600 mg tablet 600 mg PO TID #90 tabs 06/08/24 losartan 50 mg tablet 50 mg PO DAILY #90 tabs 06/08/24 oxycodone-acetaminophen 5 mg-325 1 tab PO Q8H PRN pain #20 tabs 06/08/24 mg tablet atorvastatin 40 mg tablet 40 mg PO BEDTIME #90 tabs 06/09/24 cyclobenzaprine 5 mg tablet 5 mg PO TID PRN muscle spasm 7 06/17/24 days #21 tabs Allergies Allergy/AdvReac Type Severity Reaction Status Date / Time No Known Allergies Allergy Verified 06/17/24 09:08 Review of Systems Constitutional: Constitutional: Reports no additional constitutional complaints, Denies chills, Denies fever(s) and Denies night sweats Eyes: Eyes: Reports no additional eye complaints, Denies blurry vision, Denies change in vision, Denies diplopia, Denies eye discharge, Denies loss of vision and Denies eye pain ENT: Denies dizziness Cardiovascular: Cardiovascular: Reports no additional cardiovascular complaints, Denies chest pain, Denies lightheadedness, Denies Loss of Consciousness and Denies dyspnea Respiratory: Respiratory: Reports no additional respiratory complaints and Denies dyspnea Gastrointestinal: Gastrointestinal: Reports no additional gastrointestinal complaints, Denies abdominal pain, Denies melena, Denies hematochezia, Denies change in bowel habits and Denies change in stool character Genitourinary: Genitourinary: Reports no additional male genitourinary complaints, Denies hematuria, Denies oliguria, Denies difficulty urinating, Denies dysuria, Denies urinary frequency, Denies urinary hesitancy, Denies urinary incontinence and Denies urinary urgency Musculoskeletal: Musculoskeletal: Reports no additional musculoskeletal complaints, Denies numbness and Denies tingling Comments: right shoulder pain Neurologic: Denies dizziness, Denies loss of vision, Denies numbness and Denies tingling Psychiatric: Psychiatric: Reports no additional psychiatric complaints Endocrine: Endocrine: Reports no additional endocrine complaints Hematologic/Lymphatic: Hematologic/Lymphatic: Reports no additional hematologic/lymphatic complaints Allergic/Immunologic: Allergic/Immunologic: Reports no additional allergic/immunologic complaints [facility] Past Medical History Attestation statement: The following information was validated with the patient. Source: old records reviewed and nursing notes reviewed Medical History Right shoulder pain Right hip pain Mass of perianal area Essential hypertension Hyperlipidemia OCD (obsessive compulsive disorder) Thoracic back pain IFG (impaired fasting glucose) Chronic back pain Obesity Anxiety Chronic left hip pain Chronic pelvic pain in male Hypertension GERD (gastroesophageal reflux disease) Surgical History Hx of hernia repair History of esophagogastroduodenoscopy (EGD) Hx of colonoscopy Family History Family History Mother Diabetes Cancer OCD (obsessive compulsive disorder) Father Pacemaker Cancer Other FH: mental illness Social History Social History Household Members: Other Housing: House Alcohol intake: current Comment: rarely Patient Tobacco Use Status: Former Tobacco user Tobacco use type: Cigarette Cigarette Packs Per Day: 1 Years Smoked: 15 e-Cigarette/Vaping Use: Never Used Second Hand Smoke Exposure: No Substance Use Type: Marijuana Advance Directives: No Advance Directives Information Provided: Yes Do you have a plan to hurt others: No Plan service: No Current occupational status: unemployed 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 Current occupational exposures/hazards: No Cognitive needs: No Hearing needs: No Vision needs: No Physical Exam Vital Signs: Vital Signs: Last Vital Signs Temp 98.8 F 06/17/24 10:34 Pulse 71 06/17/24 10:34 Resp 18 06/17/24 10:34 BP 139/103 H 06/17/24 10:34 Pulse Ox 98 06/17/24 10:34 BMI result Body Mass Index 39.5 Const: General: cooperative, no acute distress, alert and awake Nutritional Appearance: well nourished Orientation/consciousness: patient oriented x3 Limitations: no limitations HEENT: Head: Yes normal to inspection and Yes atraumatic Ears: hearing grossly normal bilaterally and external ears normal General nose exam: Normal external nose present, no nasal discharge noted and no epistaxis Face and sinus: Yes normal facial exam, No abrasion and No laceration Mouth: Normal oral and palatal mucosa present, no drooling and no muffled voice Eyes: General: appearance normal, both eyes and all related structures Periorbital: periorbital findings normal Eyelids: Yes eyelids normal Conjunctivae: conjunctivae normal Pupils: Equal, round and reactive pupils present EOM: EOMs intact bilaterally Neck: Neck: Yes normal visual inspection, Yes full ROM and Yes no lymphadenopathy Chest: Chest palpation & inspection: normal inspection of the chest Resp: Effort & Inspection: normal respiratory effort and able to speak in complete sentences GI: Inspection: Yes normal to inspection Neuro: General: patient oriented x3 and moves all extremities Cranial nerves: Yes Equal, round and reactive pupils present Cognition (Neuro): normal cognition Extrem: Other: pain with ROM of the right shoulder General: Yes normal to inspection and Yes capillary refill normal Psych: Appearance: grossly normal Mental Status: mental status grossly normal Affect: normal affect Attitude: cooperative Thought process: Normal thought process present Thought content: Normal thought content present Insight: Good insight present (Psych) Medical Decision Making Medical Decision Making MDM Narrative: Patient is a 43 year old assigned male at with a history GERD, chronic back pain, HTN, and OCD presenting to the emergency department today with persistent and worsening right shoulder pain. Patient's physical exam showed limited ROM of the right shoulder secondary to pain. Patient's right shoulder x- ray performed on 06/15/2024 showed no acute process. I explained my physical exam findings as well as all test results to the patient. I answered all questions asked by the patient. I stressed the importance of the patient taking his medication as directed (either prescribed or as the over the counter packaging recommends). I stressed the importance of the patient following up wi th his primary care provider and an orthopedic provider. I stressed the importance of the patient returning to the emergency department immediately if his symptoms were to worsen or if he were to develop any dizziness, shortness of breath, difficulty breathing, chest pain, blurry vision, loss of vision, nausea, vomiting, abdominal pain, fever, chills, back pain, or any other complaints. Patient verbalized agreement and understanding with this treatment plan and discharge. Differential Diagnosis Differential Diagnoses: The differential diagnosis associated with the presentation includes Rotator cuff injury Muscle spasm Cervical radiculopathy Admission/Observation Consideration of admission/observation: Escalation of care including admission/observation considered Patient would have been admitted to the hospital had his work up had any findings where hospital admission was appropriate and his clinical presentation warranted hospital admission. Independent Interpretation I performed an independent interpretation of an: Plain X-Ray Interpretation: My interpretation is in agreement with the radiologist's impression of this imaging study. EXAMINATION: XR SHOULDER 2 OR MORE VIEWS RIGHT HISTORY: M25.511 - Pain in right shoulder COMPARISON: There are no prior studies available for comparison. FINDINGS: Five views of the right shoulder are submitted. Osseous mineralization is normal. There is no fracture or dislocation. The joint spaces are preserved. The soft tissues are unremarkable. XR/XR shoulder RT min 2V IMPRESSION: Unremarkable examination of the right shoulder. Electronically signed by: Julian Antonio MD 06/17/2024 09:49 AM EST Dictated By: Julian Antonio MD Signed By: Electronically signed by Julian Antonio MD 06/17/24 0949 Radiology Impression Discussion of test interpretation with radiology: I have reviewed the radiologist's reading. Discharge Plan Discharge Clinical Impression: Rotator cuff injury, Muscle spasm Patient Disposition: Home, Self-Care Instructions: Rotator Cuff Injury (ED), Muscle Spasm (ED), Rotator Cuff Injury Exercises (DC) Additional Instructions: Follow up with your primary care provider and an orthopedic provider. Return to the emergency department immediately if your symptoms worsen or if you develop any dizziness, shortness of breath, difficulty breathing, chest pain, blurry vision, loss of vision, nausea, vomiting, abdominal pain, fever, chills, back pain, or any other complaints. Prescriptions: New cyclobenzaprine 5 mg tablet 5 mg PO TID PRN (Reason: muscle spasm) 7 Days Qty: 21 0RF No Action atorvastatin 40 mg tablet 40 mg PO BEDTIME Qty: 90 3RF multivitamin Tablet 1 tab PO DAILY nortriptyline 10 mg capsule 10 mg PO BEDTIME Qty: 90 3RF omeprazole 20 mg capsule,delayed release(DR/EC) 20 mg PO DAILY 90 Days Qty: 90 3RF gabapentin 600 mg tablet 600 mg PO TID Qty: 90 0RF oxycodone-acetaminophen 5-325 mg tablet 1 tab PO Q8H PRN (Reason: pain) Qty: 20 0RF Rx Instructions: Partial Fill upon patient request. losartan 50 mg tablet 50 mg PO DAILY Qty: 90 0RF [place] [facility] [place] [facility] [Provider Group] (Call to establish and follow up with an orthopedic provider.) Glendy Dunne PA [Primary Care Provider] - Stand Alone Forms: Work/School Release Interventions: ED Discharge Assessment Last Done: 06/17/24 10:34 Discharge Date/Time: 06/17/24 10:35 Print Language: Ukrainian
[2024-06-17 10:34] VITALS: BP 139/103; PULSE 71; RESP 18; TEMP 37.1; O2SAT 98
== END 2024-06-17 10:35 | disposition home or self-care (01) ==
PROVIDERS: Emergency Provider Student in an Organized Health Care Education/Training Program; PCP Physician Assistant Medical
DX: S46.011A Strain of muscle(s) and tendon(s) of the rotator cuff of right shoulder, initial encounter (principal); M25.511 Pain in right shoulder; X58.XXXA Exposure to other specified factors, initial encounter; Y93.9 Activity, unspecified; Y92.9 Unspecified place or not applicable; Y99.8 Other external cause status
CPT/HCPCS: 99282; 99283

== ENCOUNTER 2024-06-25 14:32 | Outpatient (AMB) | payer OTHER, SELFPAY ==
--- NOTE | 2024-06-25 15:00 | A.OFFPC_ITS ---
Vital Signs 06/25/24 15:04 Height 5 ft 10 in Weight 276 lb 2 oz BMI 39.6 BP 110/70 Blood Pressure Location Rt brachial Position Sitting Respiration 16 Pulse 69 Pulse Source Pulse Oximeter Temp 98.0 F Temp Source Oral Pulse Oximetry (%) 97 Oxygen Delivery Method Room Air Intake Visit Reasons: med review Intake Note: pt here for fmla for chronic pain Allergies No Known Allergies Allergy (Verified 06/25/24 15:02) Tobacco use date assessed: 05/11/24 Dental Screening Dental Screen Date: 11/18/23 HPI HPI Comments History of Present Illness Details This is a 43-year-old male with a past medical history of chronic back pain, chronic left hip pain, OCD and anxiety, chronic pelvic pain, hyperlipidemia, IBS, GERD and impaired fasting glucose presenting for follow up. Chronic pain- Pain control is still suboptimal, leading to ongoing symptoms affecting his mobility, characterized by difficulty standing for prolonged periods and difficulty using his right shoulder. The patient had an extensive evaluation with multiple specialists. Dr. Hussein ordered an MRI of his left hip which showed degenerative blunting/tear at the anteromedial and anterior lateral labrum. He did PT. He has received 3 left hip injections. He found the 1st to be helpful, and the last 2 injections did not help. He had an MRI of his lumbar spine completed in March which showed some degenerative findings, and he had a consult at the spine clinic. No surgical intervention was recommended. He has tried meloxicam and ibuprofen for pain as well as cyclobenzaprine. He is on nortriptyline for pain and IBS. He did not tolerate side effects of amitriptyline and duloxetine. Patient says Tylenol is ineffective. He also tried Voltaren gel. He is taking gabapentin, but he can not take it during the day if he is going to work. Has brought FMLA forms in because he is also having pain with his right shoulder. He has difficulty lifting it. He was seen at the ER and had an x- ray. He followed up with [facility] and had a cortisone injection this month with a little bit of relief. Range of motion is better, but he is still in a lot of pain. He is starting physical therapy, but they told him if he does not improve he will need surgery. He has a consult at [facility] on 07/02/24. All of this has been very stressful and is exacerbating the patient's OCD and anxiety. Had a therapist, but he has not been able to reconnect. He cannot focus. He does not want to go on disability, but he is going to apply because he does not know when he is going to be able to return to this job or if he will have to go back to school to be able to work in a different field. 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 His blood pressure is currently well-controlled on losartan 25 mg daily. He is taking can consistently now. He did not increase to 50 mg because it made him lightheaded. He did not start atorvastatin yet. He is agreeable to it. He has significant hyperlipidemia. ROS: - Cardiovascular: Denies recent chest pa in or edema. - pulmonary: Denies shortness of breath - Gastrointestinal: Reports a history of irritable bowel syndrome; denies recent vomiting, fever, or chills. - Neurologic: Denies headache, weakness, seizures, tremors. Physical exam: Constitutional: Alert, in no distress. Respiratory: Clear to auscultation. Cardiovascular: S1 S2 regular. No murmurs. Gastrointestinal: Abdomen soft, non-tender, non-distended. Normal bowel sounds. No palpable masses. Extremities: Warm and well perfused. No clubbing, cyanosis or edema. Right Shoulder: Positive empty can maneuver, right shoulder strength 4/5, decreased right shoulder abduction. Psychiatric: Normal mood and affect [facility] Medical History Right shoulder pain Right hip pain Mass of perianal area Essential hypertension Hyperlipidemia OCD (obsessive compulsive disorder) Thoracic back pain IFG (impaired fasting glucose) Chronic back pain Obesity Anxiety Chronic left hip pain Chronic pelvic pain in male Hypertension GERD (gastroesophageal reflux disease) Surgical History Hx of hernia repair History of esophagogastroduodenoscopy (EGD) Hx of colonoscopy Family History Mother Diabetes Cancer OCD (obsessive compulsive disorder) Father Pacemaker Cancer Other FH: mental illness Social History Household Members: Other Housing: House Alcohol intake: current Comment: rarely Patient Tobacco Use Status: Former Tobacco user Tobacco use type: Cigarette Cigarette Packs Per Day: 1 Years Smoked: 15 e-Cigarette/Vaping Use: Never Used Second Hand Smoke Exposure: No Substance Use Type: Marijuana service: No Current occupational status: unemployed 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 Current occupational exposures/hazards: No Cognitive needs: No Hearing needs: No Vision needs: No Questionnaire Thrive Questionnaire Date Thrive assessed: 06/08/24 I am a: Patient What is your living situation today?: I have a place to live, but I am worried about losing it in the future Within the past 12 months, did the food you bought not last and you didn't have the money to get more?: I choose not to answer this question Within the past 12 months, did you worry whether your food would run out before you got money to buy more?: I choose not to answer this question Do you have trouble paying for medicines?: I choose not to answer this question Do you have trouble getting transportation to medical appointments?: I choose not to answer this question Do you have trouble paying your heating and electricity bill?: I choose not to answer this question Do you have trouble taking care of your child, family member or friend?: I choose not to answer this question Do you have trouble with day-to-day activities such as bathing, preparing meals, shopping, managing finances, etc.?: I choose not to answer this question Are you currently unemployed and looking for a job?: I choose not to answer this question Are you interested in more education?: I choose not to answer this question Please select the resources that you would like help with: None Currently or been in a relationship where the following occur: I choose not to answer THRIVE Score: 1 Physical exam (Primary Care) Vital Signs: Last Vital Signs Temp 98.0 F 06/25/24 15:04 Pulse 69 06/25/24 15:04 Resp 16 06/25/24 15:04 BP 110/70 06/25/24 15:04 Pulse Ox 97 06/25/24 15:04 Oxygen Delivery Method Room Air 06/25/24 15:04 BMI result Body Mass Index 39.6 Tobacco/Smoking Status: Tobacco use Status Tobacco use date assessed 05/11/24 06/25/24 15:01 Patient Tobacco Use Status Former Tobacco user 06/25/24 15:01 Tobacco use type Cigarette 06/25/24 15:01 e-Cigarette/Vaping Use Never Used 06/25/24 15:01 Thrive Assessment: Date of Thrive Assessment Date Thrive assessed 06/08/24 06/25/24 15:01 Currently or been in a relationship where the following occur: I choose not to answer Coding Level of Care Code Est Pt Level 4 (31818) Complex EM visit Add On G2211 Diagnoses Chronic left hip pain M25.552; G89.29 Acute exacerbation of chronic low back pain M54.50; G89.29 Chronic midline thoracic back pain M54.6; G89.29 Chronicity: chronic Back pain laterality: midline Chronic bilateral low back pain without sciatica M54.50; G89.29 Back pain location: low back pain Back pain laterality: bilateral Sciatica presence: without sciatica Class 3 severe obesity due to excess calories without serious comorbidity with body mass index (BMI) of 40.0 to 44.9 in adult E66.01; Z68.41 Obesity type: due to excess calories Obesity classification: adult class 3 (BMI >= 40) Serious obesity comorbidity presence: without serious comorbidity Body mass index: BMI 40.0-44.9 Anxiety F41.9 OCD (obsessive compulsive disorder) F42.9 Hyperlipidemia E78.5 Essential hypertension I10 Assessment & Plan Assessment & Plan (1) Chronic left hip pain: Code(s): M25.552 - Pain in left hip; G89.29 - Other chronic pain Category: Medical (2) Acute exacerbation of chronic low back pain: Code(s): M54.50 - Low back pain, unspecified; G89.29 - Other chronic pain (3) Thoracic back pain: Code(s): M54.6 - Pain in thoracic spine Category: Medical Qualifiers: Chronicity: chronic Back pain laterality: midline Qualified Code(s): M54.6 - Pain in thoracic spine; G89.29 - Other chronic pain (4) Chronic back pain: Code(s): M54.9 - Dorsalgia, unspecified; G89.29 - Other chronic pain Category: Medical Qualifiers: Back pain location: low back pain Back pain laterality: bilateral Sciatica presence: without sciatica Qualified Code(s): M54.50 - Low back pain, unspecified; G89.29 - Other chronic pain (5) Obesity: Code(s): E66.9 - Obesity, unspecified Category: Medical Qualifiers: Obesity type: due to excess calories Obesity classification: adult class 3 (BMI >= 40) Serious obesity comorbidity presence: without serious comorbidity Body mass index: BMI 40.0-44.9 Qualified Code(s): E66.01 - Morbid (severe) obesity due to excess calories; Z68.41 - Body mass index [BMI] 40.0- 44.9, adult (6) Anxiety: Code(s): F41.9 - Anxiety disorder, unspecified Category: Medical (7) OCD (obsessive compulsive disorder): Code(s): F42.9 - Obsessive-compulsive disorder, unspecified Category: Medical (8) Hyperlipidemia: Code(s): E78.5 - Hyperlipidemia, unspecified Category: Medical (9) Essential hypertension: Code(s): I10 - Essential (primary) hypertension Category: Medical Plan Chronic pain-continue nortriptyline. Trial increase of gabapentin to 600 mg 3 times daily. Reviewed potential side effects including dizziness, sedation, brain fog. Advised not to drive or operate heavy machinery if he experiences the side effects. Patient is not able to work on this medication. Followed by Orthopedics. Consult this month with [facility]. Neurosurgery consult appreciated. No indication for surgical management. Chronic pain in the situation with his job is exacerbating anxiety and OCD. Patient will contact [facility]. FMLA forms completed for the patient. Essential Hypertension: Continue losartan 25 mg daily. Monitor blood pressure regularly and incorporate necessary dietary and lifestyle modifications. Side effects reviewed with patient. Irritable Bowel Syndrome: Currently managed with Nortriptyline and diet. Hyperlipidemia: Start atorvastatin 40 mg at bedtime. Repeat lipid profile in 6-8 weeks. Side effects reviewed. Stop medication if he develops increased pain, muscle aches, muscle weakness. Follow up in 8 weeks. Medications: New losartan 25 mg PO DAILY 90 tabs 0RF Discontinued losartan Discontinued Reason: Doctor's Order 50 mg PO DAILY 90 tabs 0RF Patient Instructions: [facility] [phone]
[2024-06-25 15:04] VITALS: BP 110/70; PULSE 69; RESP 16; TEMP 36.7; O2SAT 97; BMI 39.6
== END 2024-06-25 15:37 | disposition home or self-care (01) ==
PROVIDERS: PCP Physician Assistant Medical; Visit Provider Physician Assistant Medical
DX: M25.552 Pain in left hip (principal); G89.29 Other chronic pain; M54.50 Low back pain, unspecified; M54.6 Pain in thoracic spine; E66.01 Morbid (severe) obesity due to excess calories; Z68.41 Body mass index [BMI] 40.0-44.9, adult; F41.9 Anxiety disorder, unspecified; F42.9 Obsessive-compulsive disorder, unspecified; E78.5 Hyperlipidemia, unspecified; I10 Essential (primary) hypertension

== ENCOUNTER → 2024-06-25 14:32 | Outpatient (BNVA) | payer OTHER, SELFPAY | PROVIDERS: PCP Physician Assistant Medical; Visit Provider Physician Assistant Medical | DX: M25.552 Pain in left hip (principal); M54.50 Low back pain, unspecified; M54.6 Pain in thoracic spine; G89.29 Other chronic pain; E66.01 Morbid (severe) obesity due to excess calories; Z68.41 Body mass index [BMI] 40.0-44.9, adult; F41.9 Anxiety disorder, unspecified; F42.9 Obsessive-compulsive disorder, unspecified; E78.5 Hyperlipidemia, unspecified; I10 Essential (primary) hypertension; Z79.899 Other long term (current) drug therapy | CPT/HCPCS: 99212 ==

== ENCOUNTER 2024-09-14 09:09 | Outpatient (AMB) | payer OTHER, SELFPAY ==
--- NOTE | 2024-09-14 09:20 | MHC.PC.OV ---
Vital Signs 09/14/24 09:27 Height 5 ft 10 in Weight 287 lb 6 oz BMI 41.2 BP 136/78 Blood Pressure Location Rt brachial Position Sitting Respiration 14 Pulse 82 Pulse Source Pulse Oximeter Temp 98.6 F Temp Source Temporal Artery Scan Pulse Oximetry (%) 96 Oxygen Delivery Method Room Air Intake Visit Reasons: Review meds /fu labs, reschedule Intake Note: Ivan presents in the office for a review of his medication and labs. Issues with hips. Allergies No Known Allergies Allergy (Verified 09/14/24 09:22) Tobacco use date assessed: 09/14/24 Dental Screening Dental Screen Date: 09/14/24 Did you have a dental visit in the last 12 months?: Yes Did you have a dental problem in the last 6 months where you did not have access to dental care?: No Was dental information given to patient?: Patient has dentist HPI HPI Comments History of Present Illness Details This is a 43-year-old male with a past medical history of chronic back pain, chronic left hip pain, OCD and anxiety, chronic pelvic pain, hyperlipidemia, IBS, GERD and impaired fasting glucose presenting for follow up. Chronic pain- Pain control is still suboptimal, leading to ongoing symptoms affecting his mobility, characterized by difficulty standing for prolonged periods and difficulty using his right shoulder. The patient had an extensive evaluation with multiple specialists. Dr. Hussein ordered an MRI of his left hip which showed degenerative blunting/tear at the anteromedial and anterior lateral labrum. He did PT. He has received 3 left hip injections. He found the 1st to be helpful, and the last 2 injections did not help. He had an MRI of his lumbar spine completed in March which showed some degenerative findings, and he had a consult at the spine clinic. No surgical intervention was recommended. He has tried Lyrica (caused agitation), Gabapentin (caused sedation), meloxicam and ibuprofen for pain as well as cyclobenzaprine. He is on nortriptyline for pain and IBS. He did not tolerate side effects of amitriptyline and duloxetine. Patient says Tylenol is ineffective. He also tried Voltaren gel. He has been receiving Percocet and using this once a day recently which does alleviate pain in the afternoon. He also smokes marijuana for pain relief. Right shoulder-Improved ROM since injection at [facility], and he is starting physical therapy. If it does not help he may need surgery. He had an injection in his lower back a month ago at [facility] a month ago. It did not help. They instructed him to follow up with his orthopedic shoes salesperson to discuss another hip injection. He requests a handicap placard. He is using a cane for distances now. All of this has been very stressful and is exacerbating the patient's OCD and anxiety. He's been seeing a therapist for three weeks at [facility]. He's been having a lot of anxiety. His OCD is really frustrating him. Patient says after a few weeks she is going to put in a referral to the psychiatrist. He does not want to go on disability, but he is going to apply because he does not know when he is going to be able to return to this job or if he will have to go back to school to be able to work in a different field. 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 Hypertension-taking Losartan 25 mg daily. He forgot it today. Hyperlipidemia-Taking Atorvastatin for the past two weeks. ROS: - Cardiovascular: Denies chest pain, palpitations or edema - pulmonary: Denies shortness of breath - Gastrointestinal: Reports a history of irritable bowel syndrome; denies recent vomiting, fever, or chills. - Neurologic: Denies headache, weakness, seizures, tremors. Physical exam: Constitutional: Alert, in no distress. Respiratory: Clear to auscultation. Cardiovascular: S1 S2 regular. No murmurs. Gastrointestinal: Abdomen soft, non-tender, non-distended. Normal bowel sounds. No palpable masses. Extremities: Warm and well perfused. No clubbing, cyanosis or edema. Psychiatric: Normal mood and affect [facility] Medical History Right shoulder pain Right hip pain Mass of perianal area Essential hypertension Hyperlipidemia OCD (obsessive compulsive disorder) Thoracic back pain IFG (impaired fasting glucose) Chronic back pain Obesity Anxiety Chronic left hip pain Chronic pelvic pain in male Hypertension GERD (gastroesophageal reflux disease) Surgical History Hx of hernia repair History of esophagogastroduodenoscopy (EGD) Hx of colonoscopy Family History Mother Diabetes Cancer OCD (obsessive compulsive disorder) Father Pacemaker Cancer Other FH: mental illness Social History (Updated 09/14/24 @ 09:25 by Iram Guardado MA) Household Members: Other Housing: House Alcohol intake: current Comment: rarely Patient Tobacco Use Status: Former Tobacco user Tobacco use type: Cigarette Cigarette Packs Per Day: 1 Years Smoked: 15 e-Cigarette/Vaping Use: Never Used Second Hand Smoke Exposure: No Substance Use Type: Marijuana service: No Current occupational status: unemployed 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 1. Little interest or pleasure in doing things: several days 2. Feeling down, depressed, or hopeless: several days 3. Trouble falling or staying asleep, or sleeping too much: more than half the days 4. Feeling tired or having little energy: several days 5. Poor appetite or overeating: several days 6. Feeling bad about yourself - or that you are a failure or have let yourself or your family down: several days 7. Trouble concentrating on things, such as reading the newspaper or watching television: several days 8. Moving or speaking so slowly that other people could have noticed. Or the opposite - being so fidgety or restless that you have been moving around a lot more than usual: not at all 9. Thoughts that you would be better off or of hurting yourself in some way: not at all Total score: 8 Depression Screening Interpretation: Positive Depression Screening Follow-up: In treatment Depression Screening Done: Yes 03720 - PHQ-9 Billing: Yes Source: Developed by Drs. Julian Lawrence, Julieta Munoz, Feng Marte and colleagues, with an educational silvestre from [employer]. Thrive Questionnaire Date Thrive assessed: 09/14/24 I am a: Patient What is your living situation today?: I have a place to live, but I am worried about losing it in the future Within the past 12 months, did the food you bought not last and you didn't have the money to get more?: I choose not to answer this question Within the past 12 months, did you worry whether your food would run out before you got money to buy more?: I choose not to answer this question Do you have trouble paying for medicines?: I choose not to answer this question Do you have trouble getting transportation to medical appointments?: I choose not to answer this question Do you have trouble paying your heating and electricity bill?: I choose not to answer this question Do you have trouble taking care of your child, family member or friend?: I choose not to answer this question Do you have trouble with day-to-day activities such as bathing, preparing meals, shopping, managing finances, etc.?: I choose not to answer this question Are you currently unemployed and looking for a job?: I choose not to answer this question Are you interested in more education?: I choose not to answer this question Please select the resources that you would like help with: None Currently or been in a relationship where the following occur: I choose not to answer THRIVE Score: 1 AUDIT C Alcohol Use Questionnaire (AUDIT-C) 1. How often do you have a drink containing alcohol?: Monthly or less Total Score: 1 Score Reviewed/Action Taken: No CAL-7 AMB Questionnaire CAL-7 Date CAL - 7 assessed: 09/14/24 Feeling nervous, anxious, or on edge: 2 = More than half the days Not being able to stop or control worryin = More than half the days Worrying too much about different things: 3 = Nearly every day Trouble relaxin = More than half the days Being so restless that it is hard to sit still: 2 = More than half the days Becoming easily annoyed or irritable: 2 = More than half the days Feeling afraid as if something awful might happen: 3 = Nearly every day Total CAL-7 score (0-4 normal; 5-9 mild; 10-14 moderate; 15-21 severe): 16 Source: Developed by Drs. Julian Lawrence, Julieta Munoz, Feng Marte and colleagues, with an educational silvestre from [employer]. CAL-7 Assessment Billing CAL-7 Assessment Tool: CAL-7 Assessment 94536 ACT Questionnaire In the past 4 weeks, how much of the time did your asthma keep you from getting as much done at work, school or at home?: None of the time Score: 5 Physical exam (Primary Care) Vital Signs: Last Vital Signs Temp 98.6 F 09/14/24 09:27 Pulse 82 09/14/24 09:27 Resp 14 09/14/24 09:27 BP 136/78 09/14/24 09:27 Pulse Ox 96 09/14/24 09:27 Oxygen Delivery Method Room Air 09/14/24 09:27 BMI result Body Mass Index 41.2 Tobacco/Smoking Status: Tobacco use Status Tobacco use date assessed 09/14/24 09/14/24 09:30 Patient Tobacco Use Status Former Tobacco user 09/14/24 09:25 Tobacco use type Cigarette 09/14/24 09:25 e-Cigarette/Vaping Use Never Used 09/14/24 09:25 PHQ-9: PHQ-9 Score PHQ-9: Total score 8 09/14/24 09:34 Depression Screening Interpretation: Positive Depression Screening Follow-up: In treatment Thrive Assessment: Date of Thrive Assessment Date Thrive assessed 09/14/24 09/14/24 09:30 Currently or been in a relationship where the following occur: I choose not to answer Coding Level of Care Code Est Pt Level 4 (10466) Complex EM visit Add On G2211 Diagnoses Chronic left hip pain M25.552; G89.29 Acute exacerbation of chronic low back pain M54.50; G89.29 Chronic midline thoracic back pain M54.6; G89.29 Back pain laterality: midline Chronicity: chronic Chronic bilateral low back pain without sciatica M54.50; G89.29 Back pain laterality: bilateral Back pain location: low back pain Sciatica presence: without sciatica Class 3 severe obesity due to excess calories without serious comorbidity with body mass index (BMI) of 40.0 to 44.9 in adult E66.01; Z68.41 Body mass index: BMI 40.0-44.9 Obesity classification: adult class 3 (BMI >= 40) Obesity type: due to excess calories Serious obesity comorbidity presence: without serious comorbidity Anxiety F41.9 Mixed obsessional thoughts and acts F42.2 Obsessive-compulsive disorder type: mixed obsessional thoughts and acts Hyperlipidemia E78.5 Essential hypertension I10 Additional Codes CAL-7 Assessment Billing - CAL-7 Assessment Tool: CAL-7 Assessment 16034 ([id number]) PHQ-9 - 15040 - PHQ-9 Billing: Yes ([id number]) Assessment & Plan Assessment & Plan (1) Chronic left hip pain: Code(s): M25.552 - Pain in left hip; G89.29 - Other chronic pain Category: Medical (2) Acute exacerbation of chronic low back pain: Code(s): M54.50 - Low back pain, unspecified; G89.29 - Other chronic pain (3) Thoracic back pain: Code(s): M54.6 - Pain in thoracic spine Category: Medical Qualifiers: Back pain laterality: midline Chronicity: chronic Qualified Code(s): M54.6 - Pain in thoracic spine; G89.29 - Other chronic pain (4) Chronic back pain: Code(s): M54.9 - Dorsalgia, unspecified; G89.29 - Other chronic pain Category: Medical Qualifiers: Back pain laterality: bilateral Back pain location: low back pain Sciatica presence: without sciatica Qualified Code(s): M54.50 - Low back pain, unspecified; G89.29 - Other chronic pain (5) Obesity: Code(s): E66.9 - Obesity, unspecified Category: Medical Qualifiers: Body mass index: BMI 40.0-44.9 Obesity classification: adult class 3 (BMI >= 40) Obesity type: due to excess calories Serious obesity comorbidity presence: without serious comorbidity Qualified Code(s): E66.01 - Morbid (severe) obesity due to excess calories; Z68.41 - Body mass index [BMI] 40.0-44.9, adult (6) Anxiety: Code(s): F41.9 - Anxiety disorder, unspecified Category: Medical (7) OCD (obsessive compulsive disorder): Code(s): F42.9 - Obsessive-compulsive disorder, unspecified Category: Medical Qualifiers: Obsessive-compulsive disorder type: mixed obsessional thoughts and acts Qualified Code(s): F42.2 - Mixed obsessional thoughts and acts (8) Hyperlipidemia: Code(s): E78.5 - Hyperlipidemia, unspecified Category: Medical (9) Essential hypertension: Code(s): I10 - Essential (primary) hypertension Category: Medical Plan Chronic pain-continue nortriptyline. Followed by Orthopedics and physiatry. Neurosurgery consult appreciated. No indication for surgical management. I have prescribed multiple medications for chronic pain as outlined in the HPI. Patient did not tolerate them or find them effective. Refer to pain management. I will continue his Percocet 5-325 mg 1 tablet daily as needed for pain. Side effects, habit-forming nature of the medication and administration reviewed. Advised not to drive or operate heavy machinery when he takes this. Do not drink alcohol with it. Chronic pain in the situation with his job is exacerbating anxiety and OCD. He continues therapy, and he is going to see a psychiatrist. Essential Hypertension: Continue losartan 25 mg daily. Monitor blood pressure regularly and incorporate necessary dietary and lifestyle modifications. Side effects reviewed with patient. Irritable Bowel Syndrome: Currently managed with Nortriptyline and diet. He would like to see Gastroenterology, and he requested via the portal that I refer him anew. Hyperlipidemia: Continue atorvastatin 40 mg at bedtime. Repeat lipid profile in 6-8 weeks. Side effects reviewed. Stop medication if he develops increased pain, muscle aches, muscle weakness. Follow up in 8 weeks. Orders: Referrals Pain Management Referral G89.29 - Other chronic pain, M25.511 - Pain in right shoulder, M25.552 - Pain in left hip, M54.50 - Low back pain, unspecified
[2024-09-14 09:27] VITALS: BP 136/78; PULSE 82; RESP 14; TEMP 37; O2SAT 96; BMI 41.2
--- OUTSIDE RECORDS SUMMARY | 2024-09-14 10:03 | XMS_ITS | Clinical Summary ---
Author Organization [facility] it Address [address] [place] [address] Care Team Providers Care General Machine Operator Name Role Phone Unavailable Primary Care Provider Unavailabl e Surgical History Surgery Date Site/Laterality Comments ESOPHAGOGASTRODUODENOSCOPY 09/01/2009 PROCEDURE: NV EGD TRANSORAL BIOPSY SINGLE/MULTIPLE; COMMENT: Esophagus Nl, antral gastritis-biopsy:mild reactive changes (Hpylori-), Nl SB-biopsy:Normal Medical History Medical History Date Comments Tobacco use disorder DX:Tobacco use disorder Family History Medical History Relation Name Comments Hypertension Father Hypertension Maternal Grandfather Stroke Maternal Grandfather Diabetes Mother Hypertension Mother Relation Name Status Comments Father Alive Hypertension Maternal Grandfather Mother Alive Hypertension, d iabetes, obesity Sister Alive Social History Tobacco Use Types Packs/Day Years Used Date Smoking Tobacco: Every Day Smokeless Tobacco: Never Alcohol Use Standard Drinks/Week Comments Yes 0.8 (1 standard drink = 0.6 oz p ure alcohol) Sex and Gender Information Value Date Recorded Sex Assigned at Not on file Legal Sex Male 5:17 AM EST Gender Identity Not on file Sexual Orientation Not on file Obstetrics History Plan of Treatment Health Maintenance Due Date Last Done Comments Hepatitis B Vaccines (1 of 3 - 19+ 3-dose series) 1997 Pneumococcal Vaccine: Pediatrics (0 to 5 Years) and At-Risk Patients (6 to 64 Years) (1 of 2 - PCV) 1997 DTaP,Tdap,and Td Vaccines (2 - Td or Tdap) 07/23/2020 07/23/2010 Cholesterol Screening (Lipid Panel) 05/06/2022 Colorectal Cancer Screening: Colonoscopy 05/06/2022 Depression Screening 05/06/2022 HIV Screening 05/06/2022 Hepatitis C Screening 05/06/2022 Social Influencers of Health Screening 05/06/2022 COVID-19 Vaccine (2023-2 5 season) 2024 Influenza Vaccine (Season Ended) 2025 04/14/2015, 04/16/2014 HIB Vaccines Aged Out No longer eligi ble based on patient's age to complete this topic HPV Vaccines Aged Out No longer eligi ble based on patient's age to complete this topic Hepatitis A Vaccines Aged Out No long er eligible based on patient's age to complete this topic IPV Vaccines Aged Out No longer eligi ble based on patient's age to complete this topic MMR Vaccines Aged Out No longer eligi ble based on patient's age to complete this topic Meningococcal ACWY Vaccine Aged Out N o longer eligible based on patient's age to complete this topic Meningococcal B Vaccine Aged Out No l onger eligible based on patient's age to complete this topic RSV Immunization Patients Under 20 months Aged Out No longer eligible b ased on patient's age to complete this topic Varicella Vaccines Aged Out No longer eligible based on patient's age to complete this topic
--- OUTSIDE RECORDS SUMMARY | 2024-09-14 10:03 | XMS_ITS | Continuity of Care Document ---
Author Organization [facility] ter Address [address] [place] [address]- Care Team Providers Care Impersonator Character Name Role Phone Glendy Georges Primary Care Physician Encounter 09/08/24 - 09/09/[address] [address]- Attending Physician: Not on Staff, Attending MD Referring Physician: Not on Staff, Referring MD Encounter Type: [facility] Allergies, Adverse Reactions, Alerts No Known Allergies Immunizations Given and Recorded Vaccine Date Status Refusal Reason SARS-CoV-2 (COVID-19) mRNA-5263 vaccine 01/30/22 R ecorded Medications meloxicam 15 mg oral tablet 1 tablet, By Mouth, Daily, PRN NEEDED FOR PAIN, # 30 tablet, 1 Refills, Maintenance, 11/19/23 6:25:00 PM EDT, [facility]/pharmacy #[id number], 180, cm, 09/10/23 15:13:00 EDT, Height, 134.8, kg, 03/17/23 14:50:00 EDT, Dry Weight Start Date: 11/19/23 Status: Ordered Quantity: 30.0 Unit: tablet Repeat number: 2 nortriptyline 10 mg oral capsule 20 mg, 2, capsule, By Mouth, Daily at bedtime, Replaces amitriptyline, # 60 capsule, Refills 5, Tot. Refills 5, Maintenance, 05/21/23 1:08:00 PM EST, Route to Pharmacy Electronically, [facility]/pharmacy #[id number], Partial fill upon patient request if the prescription is for a schedule II opioid drug., 180, cm, 05/21/23 12:55:00 EST, Height, 134.8, kg, 03/17/23 14:50:00 EDT, Dry Weight Start Date: 05/21/23 Status: Ordered Quantity: 60.0 Unit: capsule Repeat number: 6 omeprazole 40 mg oral enteric coated capsule 1 capsule, By Mouth, Daily, # 90 capsule, 1 Refills, Maintenance, 08/[facility]23 3[facility]36[facility]00 [id number], cm, 05/21/23 12:55:00 EST, Height, 134.8, [...] obesity Confirmed Active Fatty liver Confirmed Active Results Radiology Reports * Exam Date Time Procedure Performing Provider Status 09/08/24 1:51 PM MRI Pelvis W+W/O Contrast Auth (Verified) Notes: (MRI Pelvis W+W/O Contrast) Reason For Exam: Fistula Protocol;Fistula Protocol RESULT: MRI Pelvis W + W/O Contrast [facility] VISIT NUMBER :[id number] Patient Name: Igor Rivera Date of : 1980 Date of Exam: 09-08-2024 Referring Physician: Brandy [facility] General Surgery [address] [place] [address], [address] [place] [address] Exam: MR Pelvis (C-/C+) CPT 77699 Room Description: [facility] 3.0T MR Pelvis (C-/C+) CPT 71438 CLINICAL INDICATION: Fistula Protocol TECHNIQUE: Multiplanar, multisequence pre and post contrast MRI evaluation of the pelvis was performed. 27 cc of Dotarem gadolinium administered intravenously. COMPARISON: CT of the abdomen and pelvis dated March 17, 2023 FINDINGS: LOWER GI TRACT: Lobulated high T2 signal at the anal verge with associated enhancement likely representing hemorrhoids. No convincing evidence of perianal fistula. No abscess or sinus tract. REPRODUCTIVE ORGANS: Unremarkable. URINARY BLADDER: Underdistended but otherwise unremarkable. PELVIS: No pelvic free fluid. LYMPH NODES: No suspicious adenopathy. VESSELS: Patent vasculature. BONES AND SOFT TISSUES: Unremarkable. IMPRESSION: 1. No evidence of perianal fistula or drainable fluid collection. 2. T2 hyperintense lobulated enhancing soft tissue the anal verge most likely representing external hemorrhoids. Correlation with physical examination is recommended. Electronically Signed By: Ramesh Mckeon MD Dictated By: Not on Staff , SAMANTHA DAS Dictated Date/Time: 09/08/24 3:39 pm Reviewed By: Not on Staff , SAMANTHA DAS Signed By: Not on Staff , SAMANTHA DAS Signed Date/Time: 09/08/24 3:39 pm Transcribed By: QUETA Transcribed Date/Time: 09/08/24 3:39 pm Social History Social History Type Response Smoking Status Former smoker, quit more than 30 days ago entered on: 12/16/22 Sex Sex Representation Male (finding) Patient Care team information Care Team Personnel Name: Mabel Light RN Position: Mirna RN Member Role: Primary Care Nurse Name: Glendy Georges Position: Reference Physician Member Role: PCP Address: [address] [place] [address] Family Medicine [address] Telecom: Care Team Related Persons Name: SILVER RIVERA Name: HUNTER RIVERA Name: BRUCE RIVERA Insurance Providers Guarantor name: [facility] [employer] Plan Information #: 1 Payer: [employer] Member Number: NA Policy Number: NA Group Number: NA
== END 2024-09-14 09:56 | disposition home or self-care (01) ==
LOC: HO.HMCFM 09:10
PROVIDERS: PCP Physician Assistant Medical; Visit Provider Physician Assistant Medical
DX: M25.552 Pain in left hip (principal); G89.29 Other chronic pain; E66.01 Morbid (severe) obesity due to excess calories; Z68.41 Body mass index [BMI] 40.0-44.9, adult; M54.50 Low back pain, unspecified; M54.6 Pain in thoracic spine; F41.9 Anxiety disorder, unspecified; F42.2 Mixed obsessional thoughts and acts; E78.5 Hyperlipidemia, unspecified; I10 Essential (primary) hypertension

== ENCOUNTER → 2024-09-14 09:09 | Outpatient (BNVA) | payer OTHER, SELFPAY | PROVIDERS: PCP Physician Assistant Medical; Visit Provider Physician Assistant Medical | DX: R10.2 Pelvic and perineal pain (principal); M25.552 Pain in left hip; G89.29 Other chronic pain; E78.5 Hyperlipidemia, unspecified; K58.0 Irritable bowel syndrome with diarrhea; K21.9 Gastro-esophageal reflux disease without esophagitis; M54.50 Low back pain, unspecified; M54.6 Pain in thoracic spine; E66.813 Obesity, class 3; F41.9 Anxiety disorder, unspecified; F42.2 Mixed obsessional thoughts and acts; I10 Essential (primary) hypertension; Z68.41 Body mass index [BMI] 40.0-44.9, adult | CPT/HCPCS: 96127; 99212 ==

== ENCOUNTER 2024-10-02 13:49 | Outpatient (AMB) | payer OTHER, SELFPAY ==
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
[2024-10-02 14:07] VITALS: BP 182/107; PULSE 77; O2SAT 99; BMI 39.7
--- OUTSIDE RECORDS SUMMARY | 2024-10-02 14:09 | XMS_ITS | Encounter Summary ---
Author Organization [facility] Address [address] [place] [address] Care Team Providers Care Theater Usher Name Role Phone Glendy Dunne Primary Care Provider [phone] Reason for Visit * Reason Onset Date Comments information needed 09/17/2024 Encounter Details Date Type Department Care Team ([facility] st Contact Info) Description 09/17/2024 Telephone Gastroenterology - [address] [facility] [address] [place] [id number] Natalio Asencio MD [address] [facility] [address] [place] [address] information needed Social History Tobacco Use Types Packs/Day Years Used Date Smoking Tobacco: Every Day Smokeless Tobacco: Never Alcohol Use Standard Drinks/Week Comments Yes 0.8 (1 standard drink = 0.6 oz p ure alcohol) Sex and Gender Information Value Date Recorded Sex Assigned at Not on file Legal Sex Male 5:17 AM EST Gender Identity Not on file Sexual Orientation Not on file documented as of this encounter Progress Notes * Lamar Pitts - 09/17/2024 12:09 PM EDT Records received from [facility] to book consult for REJI. Missing medication list, [facility] records in missing accordion. documented in this encounter Plan of Treatment Not on file documented as of this encounter Visit Diagnoses Not on filedocumented in this encounter Care Teams Theater Usher Relationship Specialty Start Date End Date Glendy Dunne PA [address] [place] [address] PCP - General Physician Transformation Specialist 09/17/24 documented as of this encounter
--- OUTSIDE RECORDS SUMMARY | 2024-10-02 14:09 | XMS_ITS | Clinical Summary ---
Author Organization [facility] [address] [facility] [address] Address [address] [place] [address] Phone Care Team Providers Care Attorney Lawyer Name Role Phone Glendy Dunne Primary Care Provider [phone] Encounters Date Type Department Care Team Description 09/17/2024 Telephone Gastroenterology - [address] [address] Natalio Asencio MD information needed from Last 3 Months Surgical History Surgery Date Site/Laterality Comments ESOPHAGOGASTRODUODENOSCOPY 09/01/2009 PROCEDURE: CO EGD TRANSORAL BIOPSY SINGLE/MULTIPLE; COMMENT: Esophagus Nl, [...] [employer] [facility] [employer] Screening 05/06/2022 COVID-19 Vaccine (1 - 2023-2 5 season) 2024 Influenza Vaccine (Season Ended) [...] on patient's age to complete this topic Insurance [facility] Care Teams Attorney Lawyer Relationship Specialty Start Date End Date Glendy Dunne PA [address] [place] [address] [phone] PCP - General Physician Mechanical Design Engineer 09/17/24
== END 2024-10-02 14:55 | disposition home or self-care (01) ==
LOC: HO.PMC 13:50
PROVIDERS: PCP Physician Assistant Medical; Referring Provider Physician Assistant Medical; Visit Provider Registered Nurse Emergency
DX: M25.552 Pain in left hip (principal); S73.192A Other sprain of left hip, initial encounter; M47.816 Spondylosis without myelopathy or radiculopathy, lumbar region; G58.8 Other specified mononeuropathies
CPT/HCPCS: 99204; G2211

== ENCOUNTER → 2024-10-02 13:49 | Outpatient (BNVA) | payer OTHER, SELFPAY | PROVIDERS: PCP Physician Assistant Medical; Referring Provider Physician Assistant Medical; Visit Provider Registered Nurse Emergency | DX: M47.816 Spondylosis without myelopathy or radiculopathy, lumbar region (principal); G58.8 Other specified mononeuropathies; S73.192A Other sprain of left hip, initial encounter; X58.XXXA Exposure to other specified factors, initial encounter; Y93.9 Activity, unspecified; Y92.9 Unspecified place or not applicable; Y99.9 Unspecified external cause status | CPT/HCPCS: 99202 ==

== ENCOUNTER 2024-10-30 13:16 | Outpatient (AMB) | payer OTHER, SELFPAY ==
--- NOTE | 2024-10-30 13:21 | MHC.OFFVIS ---
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 He has a history of anxiety and obsessive-compulsive disorder, which impacts his management of chronic pain in his shoulder, back, and hip. He reports his pain flaring in episodes, often incapacitating all three regions simultaneously. The recent of his father has significantly impacted his mental health, intensifying his anxiety, and resulting in the coexistence of emotional and physical distress. His primary concerns focus on his dissatisfaction with treatment efficacy, side effects, and the complex interrelationship of his back and hip issues. Previously, the patient underwent a steroid injection in the back in August, which was ineffective in relieving pain and increased his anxiety and obsessive-compulsive symptoms. Similarly, a hip injection about one and a half months prior provided no longer-lasting relief. He recalls past interventions, including physical therapy for his shoulder, but discontinued due to the impracticality and intensification of pain in other areas. His attempts to manage severe pain have included sparing Percocet use, limited by his aim to avoid analgesic dependency. The patient reports visits with various specialists regarding spinal stenosis, which has led to a recommendation for decompressive surgery to address neurological pain. However, the interdependence with his hip condition slows progress, causing frustration over the elaborate multi-diagnosis management approach. His approach includes a focus on mental health support, though it feels insufficient due to the persistent and acute nature of his distress. - Onset and Timing: Pain flares intermittently, recently exacerbated over the past two days. - Quality and Character: Described as severe and incapacitating when flaring. - Primary Location: Shoulder, hip, and back. - Radiation: Down the spine to the legs, causing weakness intermittently. - Exacerbating Factors: Increased stress, recent , unresolved spinal and hip issues, recent steroid injections. - Relieving Factors: Minimal relief from Percocet use; some symptom alleviation through rest. - Impact: Affects daily activities, ability to travel, participate in physical therapy, and manage personal and financial matters. - Affect: Significant impact on psychological well-being due to interplay with anxiety and OCD; stress from personal loss and financial insecurity exacerbate mental distress. - Analgesia: Currently uses Percocet sparingly; concerns over dependency and achieving adequate pain relief. - Adverse Effects: Back steroid injection exacerbated anxiety/OCD symptoms; hip injection provided transient relief. - Activities of Daily Living: Pain interrupts daily tasks, physical therapy, managing financial stability, potentially influencing decisions on living arrangements. - Aberrant Drug Related Behaviors: No evidence from the provided conversation. [facility] Medical History Right shoulder pain Right hip pain Mass of perianal area Essential hypertension Hyperlipidemia OCD (obsessive compulsive disorder) Thoracic back pain IFG (impaired fasting glucose) Chronic back pain Obesity Anxiety Chronic left hip pain Chronic pelvic pain in male Hypertension GERD (gastroesophageal reflux disease) Surgical History Hx of hernia repair History of esophagogastroduodenoscopy (EGD) Hx of colonoscopy Family History Mother Diabetes Cancer OCD (obsessive compulsive disorder) Father Pacemaker Cancer Other FH: mental illness Social History (Updated 09/14/24 @ 09:25 by Iram Guardado MA) Household Members: Other Housing: House Alcohol intake: current Comment: rarely Patient Tobacco Use Status: Former Tobacco user Tobacco use type: Cigarette Cigarette Packs Per Day: 1 Years Smoked: 15 e-Cigarette/Vaping Use: Never Used Second Hand Smoke Exposure: No Substance Use Type: Marijuana service: No Current occupational status: unemployed 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 - Neurological: Reports leg weakness and pain that worsens with actions. - Psychological: Reports increased anxiety and OCD symptoms, exacerbated by stressors. Physical Exam Vital Signs: Last Vital Signs Pulse 90 10/30/24 13:27 BP 149/83 H 10/30/24 13:27 Pulse Ox 97 10/30/24 13:27 Oxygen Delivery Method Room Air 10/30/24 13:27 BMI result Body Mass Index 40.3 Results Reviewed Results Reviewed: 03/2024 MR/MR lumbar spine wo con VERTEBRAL BODIES/BONE MARROW: -There is now bone marrow edema, or abnormal infiltrating bone marrow signal. -There are mild fatty type endplate changes at L2-3. -There is a small hemangioma at L5. DISCS: -Mild to moderate loss of disc height and signal L2-3, L4-5, and L5-S1. -Remainder of intervertebral discs are preserved. SPINAL CANAL: -Of note, there is congenital spinal canal narrowing throughout the lumbar region, with short pedicles, finding which will exacerbate acquired spondylosis. See below. CONUS MEDULLARIS: -Terminates at mid L1. Morphology and signal is normal. INTRADURAL NERVE ROOTS: - Within normal limits. Axial Disc Space Images: T12-L1: Mild congenital spinal canal narrowing. Minimal shallow diffuse bulging disc present, without significant mass effect upon the thecal sac. There is mild central canal narrowing and mild bilateral neural foraminal narrowing. L1-L2: Mild congenital spinal canal narrowing. No significant disc pathology. Mild hypertrophic degenerative facet changes bilaterally. There is mild central canal narrowing, no significant subarticular recess narrowing, and minimal bilateral neural foraminal narrowing. L2-L3: Congenital spinal canal narrowing. There is a diffuse disc bulge present, concentrically involving both foraminal zones. This indents upon the ventral thecal sac, and coupled with mild to moderate hypertrophic degenerative facet changes, mild dorsal epidural lipomatosis, is resulting in moderate to severe central canal stenosis, with the AP diameter of the thecal sac reduced to 7 mm. There is mild central nerve root crowding. There is moderate bilateral subarticular recess narrowing, and there is moderate bilateral neural foraminal narrowing. L3-L4: Congenital spinal canal narrowing. No significant disc pathology other than minimal physiologic disc bulging. Mild to moderate hypertrophic degenerative facet changes right greater than left. Dorsal epidural lipomatosis. Combination of findings is resulting in moderate central canal stenosis, mild bilateral subarticular recess stenosis, and mild bilateral neural foraminal stenosis. L4-L5: Congenital spinal canal narrowing. There is a diffuse bulging disc present extending into both foraminal zones with a superimposed central extrusion of disc material with associated annular fissuring (series 9, image 19). Coupled with moderate hypertrophic degenerative facet changes bilaterally, mild dorsal ligamentous infolding/hypertrophy, findings are resulting in moderate to severe central canal stenosis, moderate to severe bilateral subarticular recess stenosis with contact and mild impingement of the left greater than right traversing L5 roots. There is moderate bilateral neural foraminal narrowing. L5-S1: Congenital spinal canal narrowing. There is a shallow disc bulge present with a superimposed central disc protrusion, which when coupled with mild to moderate hypertrophic degenerative facet changes is resulting in moderate central canal stenosis. There is moderate bilateral subarticular recess stenosis without definite mass effect upon the traversing S1 roots. There is mild to moderate bilateral neural foraminal narrowing. IMAGED SI JOINTS: -Mild degenerative arthrosis bilaterally. PARAVERTEBRAL AND INCLUDED EXTRASPINAL SOFT TISSUES: -Normal. IMPRESSION: 1. Mild to moderate spondylosis superimposed upon a congenitally narrow central canal. 2. There is moderate to severe central canal stenosis at L2-3 with bilateral subarticular recess narrowing. 3. There is moderate central canal stenosis at L3-4. 4. There is moderate to severe central canal stenosis, moderate to severe bilateral subarticular recess stenosis, and moderate bilateral neural foraminal stenosis at L4-5. There is a central disc extrusion with annular fissuring at this level (this is most likely the symptomatic level). 5. Moderate central canal stenosis with bilateral moderate subarticular recess stenosis L5-S1. 6. See the body the report for ancillary findings and further detail. 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 The treatment focus should parallel exploring multidisciplinary care options, possibly incorporating non-surgical therapies, potentially advantageous given his complex combination of symptoms and conditions. During our conversation, I discussed the likely diagnosis of spinal stenosis and associated management options. Discussions included risks of surgical intervention and potential complications, aligning surgical plans considering combined hip-spine symptomatology. We discussed alternatives to past steroid injection practices, reducing side effects, particularly concerning his exacerbated anxiety concerns from previous treatments. The importance of integrated care was emphasized, potentially enhancing management through specialized support teams experienced in multidisciplinary chronic pain interventions. Discussed potential option for treatment with bilateral L4-5 transforaminal epidural steroid injection with local anesthetic. Patient would like to hold off at this time, he will follow-up after he speaks with neuro spine Center if he wishes to proceed. Patient was informed and verbally consented to the use of an ambient scribe for clinic note documentation during this visit. Patient Instructions: - Follow up with a recommended neurosurgeon . - Explore multidisciplinary pain management options. - Continue minimal Percocet use; avoid dependency. - Consider alternative minimal steroid dosages for injections. - Monitor anxiety and OCD symptoms closely with mental health provider. - Call the office if pain worsens significantly or if you cannot manage at home. - Focus on stress-reduction strategies; give yourself permission to rest and manage stressors gradually. - Report progress or new symptoms to your health care provider. Coding Level of Care Code Est Pt Level 3 (39634) Complex EM visit Add On G2211 Diagnoses Left hip pain M25.552 Labral tear of left hip joint S73.192A Lumbar spondylosis M47.816 Cluneal neuropathy G58.8
--- OUTSIDE RECORDS SUMMARY | 2024-10-30 13:26 | XMS_ITS | Clinical Summary ---
Author Organization [facility] [address] [facility] [address] Address [address] [place] [address] Phone Care Team Providers Care Furniture Fabricator Name Role Phone Glendy Dunne Primary Care Provider [phone] Encounters Date Type Department Care Team Description 09/17/2024 Telephone Gastroenterology - [address] [id number] Natalio Asencio MD information needed from Last 3 Months Surgical History Surgery Date Site/Laterality Comments ESOPHAGOGASTRODUODENOSCOPY 09/01/2009 PROCEDURE: GA EGD TRANSORAL BIOPSY SINGLE/MULTIPLE; COMMENT: Esophagus Nl, [...] patient's age to complete this topic Insurance [facility] Care Teams Furniture Fabricator Relationship Specialty Start Date End Date Glendy Dunne PA [address] [place] [address] [id number] PCP - General Physician Turf Grower 09/17/24
[2024-10-30 13:27] VITALS: BP 149/83; PULSE 90; O2SAT 97; BMI 40.3
== END 2024-10-30 13:51 | disposition home or self-care (01) ==
PROVIDERS: PCP Physician Assistant Medical; Visit Provider Registered Nurse Emergency
DX: M25.552 Pain in left hip (principal); S73.192A Other sprain of left hip, initial encounter; M47.816 Spondylosis without myelopathy or radiculopathy, lumbar region; G58.8 Other specified mononeuropathies
CPT/HCPCS: 99213; G2211

== ENCOUNTER → 2024-10-30 13:16 | Outpatient (BNVA) | payer OTHER, SELFPAY | PROVIDERS: PCP Physician Assistant Medical; Visit Provider Registered Nurse Emergency | DX: M25.552 Pain in left hip (principal); S73.192D Other sprain of left hip, subsequent encounter; M47.816 Spondylosis without myelopathy or radiculopathy, lumbar region; G58.8 Other specified mononeuropathies | CPT/HCPCS: 99212 ==

== ENCOUNTER 2024-11-12 08:23 | Outpatient (AMB) | payer OTHER, SELFPAY ==
--- NOTE | 2024-11-12 08:28 | MHC.PC.OV ---
Vital Signs 11/12/24 08:33 Height 5 ft 10 in Weight 281 lb 3 oz BMI 40.3 BP 118/84 Blood Pressure Location Rt brachial Position Sitting Pulse 83 Pulse Source Pulse Oximeter Temp 97 F Temp Source Temporal Artery Scan Pulse Oximetry (%) 98 Oxygen Delivery Method Room Air Intake Visit Reasons: physical exam Intake Note: Ivan presents in the office today for his annual physical. Allergies duloxetine Allergy (Unknown, Verified 11/12/24 08:31) Agitated gabapentin Allergy (Unknown, Verified 11/12/24 08:31) sedation pregabalin Allergy (Unknown, Verified 11/12/24 08:31) Agitated Tobacco use date assessed: 11/12/24 Dental Screening Dental Screen Date: 11/12/24 Did you have a dental visit in the last 12 months?: No Did you have a dental problem in the last 6 months where you did not have access to dental care?: Yes Was dental information given to patient?: Patient declined HPI HPI Comments History of Present Illness Details This is a 44-year-old male with a past medical history of chronic back pain, chronic left hip pain, OCD and anxiety, chronic pelvic pain, hyperlipidemia, IBS, GERD and impaired fasting glucose presenting for a physical exam. Chronic pain- Pain control is still suboptimal, leading to ongoing symptoms affecting his mobility, characterized by difficulty standing for prolonged periods and difficulty using his right shoulder. He is doing physical therapy for his right shoulder, but due to back and hip pain he has difficulty completing these sessions. He is not ready to follow back up with Orthopedics because he has too much going on right now to address the shoulder completely. The patient had an extensive evaluation with multiple specialists. Dr. Hussein ordered an MRI of his left hip which showed degenerative blunting/tear at the anteromedial and anterior lateral labrum. He did PT. He has received multiple left hip injections. He only found the 1st injection to be helpful. He had an MRI of his lumbar spine completed in March which showed some degenerative findings, and he had a consult at the spine clinic. No surgical intervention was recommended, however since that time he saw Dr. Kang at [facility]. He did not have the MRI results so the patient has an appointment to follow up in December to discuss the findings and whether or not he would consider surgery. He also reports that the critical care nurse specialist he sees for his left hip thought he probably needs hip surgery but wanted him to address the lower back 1st. He has tried Lyrica (caused agitation), Gabapentin (caused sedation), meloxicam and ibuprofen for pain as well as cyclobenzaprine. He is on nortriptyline for pain and IBS. He did not tolerate side effects of amitriptyline and duloxetine. Tylenol and Voltaren gel were also ineffective. He has been seen by pain management. He is not interested in further injections at this time. I am prescribing Percocet as needed. He is using 1-2 per day and running out of the medicine before the end of the month. He also smokes marijuana for pain relief. Requested a handicap placard, but they need a letter with the additional supporting information. His father recently. All of this has been very stressful and is exacerbating the patient's OCD and anxiety. He's been seeing a therapist at [facility]. He's been having a lot of anxiety. His OCD is really frustrating him. They are talking about having him see a psychiatrist. He does not want to go on disability, but he is applying because he does not know when he is going to be able to return to this job or if he will have to go back to school to be able to work in a different field. 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 Child support issue from a previous relationship may be resolving soon which would provides a little bit more financial flexibility. Hypertension-taking Losartan 25 mg daily. Hyperlipidemia-difficulty with compliance. He had not been taking it at all, but he started taking it again a week ago. Saw colorectal surgeon regarding rectal mass. Reports he diagnosed with hemorrhoids. States he was referred to [facility] gastroenterology anew for IBS. Colonoscopy is up-to-date. Reports last tetanus immunization 4-5 years ago. ROS: Constitutional: No unexplained weight loss, fever, chills or night sweats. Eyes: No vision changes, blurry vision, double vision, eye pain, eye redness, eye discharge. ENT: No hearing loss, sneezing, congestion, runny nose or sore throat. Respiratory: No shortness of breath, cough or sputum production. Cardiovascular: No chest pain, chest pressure or chest discomfort. No palpitations or pedal edema. Gastrointestinal: No blood in stools, vomiting or diarrhea. Chronic abdominal pain. Genitourinary: No dysuria, hematuria, urinary frequency. Neurologic: No headache, dizziness, syncope Musculoskeletal: See HPI Hematologic/Lymphatics: No bleeding or bruising. No painful lymph nodes. Skin: No rash Endocrine: No cold or heat intolerance. No polyuria or polydipsia. Psychiatric: No SI/HI. Physical exam: Constitutional: Alert, in no distress. Head: Normocephalic. Eyes: Pupils are equal, round and reactive to light. Extraocular muscles intact. Ear, Nose and Throat: Canals clear. TMs normal. Normal nasal mucosa. No nasal discharge. No oral lesions. Neck: Supple, Full range of motion. No lymphadenopathy. No palpable thyroid masses. Respiratory: Clear to auscultation. Cardiovascular: S1 S2 regular. No murmurs. Gastrointestinal: Abdomen soft, non-tender, non-distended. Normal bowel sounds. No palpable masses. Genitourinary: Patient declined exam. Neurologic: No focal neurological deficits. Skin: No rashes Extremities: Warm and well perfused. No clubbing, cyanosis or edema. Intact peripheral pulses bilaterally. Psychiatric: Normal mood and affect [facility] Medical History (Updated 11/12/24 @ 08:40 by IRVING Abbasi) Routine physical examination Right shoulder pain Right hip pain Mass of perianal area Essential hypertension Hyperlipidemia OCD (obsessive compulsive disorder) Thoracic back pain IFG (impaired fasting glucose) Chronic back pain Obesity Anxiety Chronic left hip pain Chronic pelvic pain in male Hypertension GERD (gastroesophageal reflux disease) Surgical History Hx of hernia repair History of esophagogastroduodenoscopy (EGD) Hx of colonoscopy Family History Mother Diabetes Cancer OCD (obsessive compulsive disorder) Father Pacemaker Cancer Other FH: mental illness Social History (Updated 11/12/24 @ 08:33 by Iram Guardado MA) Household Members: Other Housing: House Alcohol intake: current Comment: rarely Patient Tobacco Use Status: Former Tobacco user Tobacco use type: Cigarette Cigarette Packs Per Day: 1 Years Smoked: 15 e-Cigarette/Vaping Use: Never Used Second Hand Smoke Exposure: No Substance Use Type: Marijuana service: No Current occupational status: unemployed 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 1. Little interest or pleasure in doing things: nearly every day 2. Feeling down, depressed, or hopeless: nearly every day 3. Trouble falling or staying asleep, or sleeping too much: nearly every day 4. Feeling tired or having little energy: nearly every day 5. Poor appetite or overeating: nearly every day 6. Feeling bad about yourself - or that you are a failure or have let yourself or your family down: nearly every day 7. Trouble concentrating on things, such as reading the newspaper or watching television: nearly every day 8. Moving or speaking so slowly that other people could have noticed. Or the opposite - being so fidgety or restless that you have been moving around a lot more than usual: not at all 9. Thoughts that you would be better off or of hurting yourself in some way: not at all Total score: 21 Depression Screening Interpretation: Positive Depression Screening Follow-up: Existing condition and In treatment Depression Screening Done: Yes 24549 - PHQ-9 Billing: Yes Source: Developed by Drs. Julian Lawrence, Julieta Munoz, Feng Marte and colleagues, with an educational silvestre from [employer]. Thrive Questionnaire Date Thrive assessed: 11/12/24 I am a: Patient What is your living situation today?: I have a place to live, but I am worried about losing it in the future Within the past 12 months, did the food you bought not last and you didn't have the money to get more?: I choose not to answer this question Within the past 12 months, did you worry whether your food would run out before you got money to buy more?: I choose not to answer this question Do you have trouble paying for medicines?: I choose not to answer this question Do you have trouble getting transportation to medical appointments?: I choose not to answer this question Do you have trouble paying your heating and electricity bill?: I choose not to answer this question Do you have trouble taking care of your child, family member or friend?: I choose not to answer this question Do you have trouble with day-to-day activities such as bathing, preparing meals, shopping, managing finances, etc.?: I choose not to answer this question Are you currently unemployed and looking for a job?: I choose not to answer this question Are you interested in more education?: I choose not to answer this question Please select the resources that you would like help with: None Currently or been in a relationship where the following occur: I choose not to answer THRIVE Score: 1 AUDIT C Alcohol Use Questionnaire (AUDIT-C) 1. How often do you have a drink containing alcohol?: Monthly or less 2. How many drinks containing alcohol do you have on a typical day when you are drinking?: 1 or 2 3. How often do you have six or more drinks on one occasion?: Never Total Score: 1 Score Reviewed/Action Taken: No CAL-7 AMB Questionnaire CAL-7 Date CAL - 7 assessed: 11/12/24 Feeling nervous, anxious, or on edge: 3 = Nearly every day Not being able to stop or control worryin = Nearly every day Worrying too much about different things: 3 = Nearly every day Trouble relaxin = Nearly every day Being so restless that it is hard to sit still: 3 = Nearly every day Becoming easily annoyed or irritable: 3 = Nearly every day Feeling afraid as if something awful might happen: 3 = Nearly every day Total CAL-7 score (0-4 normal; 5-9 mild; 10-14 moderate; 15-21 severe): 21 Source: Developed by Drs. Julian Lawrence, Julieta Munoz, Feng Marte and colleagues, with an educational silvestre from [employer]. CAL-7 Assessment Billing CAL-7 Assessment Tool: CAL-7 Assessment 58208 Physical exam (Primary Care) Vital Signs: Last Vital Signs Temp 97 F 11/12/24 08:33 Pulse 83 11/12/24 08:33 BP 118/84 11/12/24 08:33 Pulse Ox 98 11/12/24 08:33 Oxygen Delivery Method Room Air 11/12/24 08:33 BMI result Body Mass Index 40.3 Tobacco/Smoking Status: Tobacco use Status Tobacco use date assessed 11/12/24 11/12/24 08:40 Patient Tobacco Use Status Former Tobacco user 11/12/24 08:40 Tobacco use type Cigarette 11/12/24 08:40 e-Cigarette/Vaping Use Never Used 11/12/24 08:40 PHQ-9: PHQ-9 Score PHQ-9: Total score 21 11/12/24 08:41 Depression Screening Interpretation: Positive Depression Screening Follow-up: Existing condition and In treatment Thrive Assessment: Date of Thrive Assessment Date Thrive assessed 11/12/24 11/12/24 08:40 Currently or been in a relationship where the following occur: I choose not to answer Coding Level of Care Code Est Pt Level 2 (51650) Est Pt Prev Care 40-64y(22902) Diagnoses Routine physical examination Z00.00 Chronic left hip pain M25.552; G89.29 Acute exacerbation of chronic low back pain M54.50; G89.29 Chronic midline thoracic back pain M54.6; G89.29 Back pain laterality: midline Chronicity: chronic Chronic bilateral low back pain without sciatica M54.50; G89.29 Back pain laterality: bilateral Back pain location: low back pain Sciatica presence: without sciatica Class 3 severe obesity due to excess calories without serious comorbidity with body mass index (BMI) of 40.0 to 44.9 in adult E66.01; Z68.41 Body mass index: BMI 40.0-44.9 Obesity classification: adult class 3 (BMI >= 40) Obesity type: due to excess calories Serious obesity comorbidity presence: without serious comorbidity Anxiety F41.9 Mixed obsessional thoughts and acts F42.2 Obsessive-compulsive disorder type: mixed obsessional thoughts and acts Hyperlipidemia E78.5 Essential hypertension I10 Additional Codes CAL-7 Assessment Billing - CAL-7 Assessment Tool: CAL-7 Assessment 06694 ([id number]) PHQ-9 - 53502 - PHQ-9 Billing: Yes ([id number]) Assessment & Plan Assessment & Plan (1) Routine physical examination: Code(s): Z00.00 - Encounter for general adult medical examination without abnormal findings Category: Medical (2) Chronic left hip pain: Code(s): M25.552 - Pain in left hip; G89.29 - Other chronic pain Category: Medical (3) Acute exacerbation of chronic low back pain: Code(s): M54.50 - Low back pain, unspecified; G89.29 - Other chronic pain (4) Thoracic back pain: Code(s): M54.6 - Pain in thoracic spine Category: Medical Qualifiers: Back pain laterality: midline Chronicity: chronic Qualified Code(s): M54.6 - Pain in thoracic spine; G89.29 - Other chronic pain (5) Chronic back pain: Code(s): M54.9 - Dorsalgia, unspecified; G89.29 - Other chronic pain Category: Medical Qualifiers: Back pain laterality: bilateral Back pain location: low back pain Sciatica presence: without sciatica Qualified Code(s): M54.50 - Low back pain, unspecified; G89.29 - Other chronic pain (6) Obesity: Code(s): E66.9 - Obesity, unspecified Category: Medical Qualifiers: Body mass index: BMI 40.0-44.9 Obesity classification: adult class 3 (BMI >= 40) Obesity type: due to excess calories Serious obesity comorbidity presence: without serious comorbidity Qualified Code(s): E66.01 - Morbid (severe) obesity due to excess calories; Z68.41 - Body mass index [BMI] 40.0-44.9, adult (7) Anxiety: Code(s): F41.9 - Anxiety disorder, unspecified Category: Medical (8) OCD (obsessive compulsive disorder): Code(s): F42.9 - Obsessive-compulsive disorder, unspecified Category: Medical Qualifiers: Obsessive-compulsive disorder type: mixed obsessional thoughts and acts Qualified Code(s): F42.2 - Mixed obsessional thoughts and acts (9) Hyperlipidemia: Code(s): E78.5 - Hyperlipidemia, unspecified Category: Medical (10) Essential hypertension: Code(s): I10 - Essential (primary) hypertension Category: Medical Plan Patient is seen today for a routine physical. As part of this visit we reviewed the following issues, which are considered and essential part of preventative health in this age group: - Screening for colon cancer - Discussed Prostate cancer screening - PSA ordered - Nutritional and exercise counseling - Counseling of injury prevention including fire prevention, smoke alarms and seat belt usage - Education about skin cancer - Recommendations about immunizations - Recommendation of an eye exam - Screening for substance abuse Chronic pain-continue nortriptyline. Increase Percocet 5-325-1 tablet every 8 hours as needed with 60 tablets for 30 days to be written for next refill. It was too early to send in the prescription today. Discussed it is habit forming and a controlled substance. Do not drive, operate heavy machinery or drink alcohol with this medicine. Followed by Orthopedics and physiatry. He will follow up with Dr. Kang in December to review the MRI of his lower back and discuss if he has a surgical candidate. Chronic pain exacerbates OCD and anxiety. He continues therapy, and he is going to see a psychiatrist. Essential Hypertension: Continue losartan 25 mg daily. Monitor blood pressure regularly and incorporate necessary dietary and lifestyle modifications. Side effects reviewed with patient. Irritable Bowel Syndrome: Currently managed with Nortriptyline and diet. He has been referred to [facility]. Hyperlipidemia: Stay consistent with atorvastatin 40 mg at bedtime. Advised patient to have labs done prior to next appointment. Follow up in 7 weeks. Orders: Orders Lipid Panel Today E78.5 - Hyperlipidemia, unspecified, Z00.00 - Encounter for general adult medical examination without abnormal findings Comprehensive Met. Panel Today Z00.00 - Encounter for general adult medical examination without abnormal findings Complete Blood Count no Diff Today Z00.00 - Encounter for general adult medical examination without abnormal findings TSH reflex Free T4 Today Z00.00 - Encounter for general adult medical examination without abnormal findings Prostate Specific Antigen Today Z00.00 - Encounter for general adult medical examination without abnormal findings, Z12.5 - Encounter for screening for malignant neoplasm of prostate Referrals Optometry Referral Z01.00 - Encounter for examination of eyes and vision without abnormal findings
--- OUTSIDE RECORDS SUMMARY | 2024-11-12 08:31 | XMS_ITS | Clinical Summary ---
Author Organization [facility] [address] [facility] [address] Address [address] [place] [address] Phone Care Team Providers Care Lan Administrator Name Role Phone Glendy Dunne Primary Care Provider [phone] Encounters Date Type Department Care Team Description 09/17/2024 Telephone Gastroenterology - [address] [address] Natalio Asencio MD information needed from Last 3 Months Surgical History Surgery Date Site/Laterality Comments ESOPHAGOGASTRODUODENOSCOPY 09/01/2009 PROCEDURE: VT EGD TRANSORAL BIOPSY SINGLE/MULTIPLE; COMMENT: Esophagus Nl, [...] patient's age to complete this topic Insurance [facility] Care Teams Lan Administrator Relationship Specialty Start Date End Date Glendy Dunne PA [address] [place] [address] [phone] PCP - General Physician Composition Molder 09/17/24
[2024-11-12 08:33] VITALS: BP 118/84; PULSE 83; TEMP 36.1; O2SAT 98; BMI 40.3
== END 2024-11-12 09:17 | disposition home or self-care (01) ==
LOC: HO.HMCFM 08:24
PROVIDERS: PCP Physician Assistant Medical; Visit Provider Physician Assistant Medical
DX: Z00.00 Encounter for general adult medical examination without abnormal findings (principal); M25.552 Pain in left hip; E66.01 Morbid (severe) obesity due to excess calories; Z68.41 Body mass index [BMI] 40.0-44.9, adult; G89.29 Other chronic pain; M54.50 Low back pain, unspecified; M54.6 Pain in thoracic spine; F41.9 Anxiety disorder, unspecified; F42.2 Mixed obsessional thoughts and acts; E78.5 Hyperlipidemia, unspecified; I10 Essential (primary) hypertension

== ENCOUNTER → 2024-11-12 08:23 | Outpatient (BNVA) | payer OTHER, SELFPAY | PROVIDERS: PCP Physician Assistant Medical; Visit Provider Physician Assistant Medical | DX: Z00.00 Encounter for general adult medical examination without abnormal findings (principal); M25.552 Pain in left hip; M54.50 Low back pain, unspecified; M54.6 Pain in thoracic spine; G89.29 Other chronic pain; E66.01 Morbid (severe) obesity due to excess calories; Z68.41 Body mass index [BMI] 40.0-44.9, adult; F41.9 Anxiety disorder, unspecified; F42.2 Mixed obsessional thoughts and acts; E78.5 Hyperlipidemia, unspecified; I10 Essential (primary) hypertension; Z13.31 Encounter for screening for depression; Z13.30 Encounter for screening examination for mental health and behavioral disorders, unspecified | CPT/HCPCS: 96127; 99212; 99396 ==

== ENCOUNTER 2024-12-28 07:31 | Outpatient (REF) | payer OTHER, SELFPAY ==
--- OUTSIDE RECORDS SUMMARY | 2024-12-25 23:59 | XMS_ITS | Continuity of Care Document ---
Author Organization [facility] ter Address [address] [place] [address]- Care Team Providers Care Nuclear Supervising Operator Name Role Phone Glendy Georges Primary Care Physician Encounter 12/24/24 - 12/25/[address] [id number] Attending Physician: Not on Staff, Attending MD Referring Physician: Not on Staff, Referring MD Encounter Type: [facility] Allergies, Adverse Reactions, Alerts No Known Allergies Immunizations Given and Recorded Vaccine Date Status Refusal Reason tetanus/diphtheria/pertussis, acel(Tdap) 12/15/24 Given SARS-CoV-2 (COVID-19) mRNA-1273 vaccine 01/30/22 R ecorded Medications acetaminophen-oxyCODONE 325 mg-5 mg oral tablet TAKE 1 TABLET ORALLY EVERY 8 HOURS NEEDED FOR PAIN Start Date: 10/01/24 Status: Ordered Repeat number: 1 Anusol-HC 2.5% topical cream 1 application, Topically, 2 times a day, Apply pea-sized amount internally and externally to the anus. Take 2 weeks of in between treatment., # 30 Gm, 1 Refills, Maintenance, 11/09/24 2:56:00 PM EDT, Cream, [id number], Partial fill upon patient request if the prescription is for a schedule IIopioid drug., 1 application Topically 2 times a day,Instr:Apply pea-sized amount internally and externally to the anus. Take 2 weeks of in between treatment., 178, cm, 11/09/24 13:58:00 EDT, Height, 127.7, kg, 10/01/24 13:38:00 EDT, Dry Weight Start Date: 11/09/24 Status: Ordered Quantity: 30.0 Unit: g Repeat number: 2 cyclobenzaprine 5 mg oral tablet TAKE 1 TABLET BY MOUTH 3 TIMES A DAY NEEDED FOR MUSCLE SPASMS FOR 7 DAYS Start Date: 10/01/24 Status: Ordered Repeat number: 1 losartan 25 mg oral tablet TAKE 1 TABLET BY MOUTH EVERY DAY Start Date: 10/01/24 Status: Ordered Repeat number: 1 meloxicam 15 mg oral tablet 1 tablet, By Mouth, Daily, PRN NEEDED FOR PAIN, # 30 tablet, 1 Refills, Maintenance, 11/19/23 6:25:00 PM EDT, [id number], 180, cm, 09/10/23 15:13:00 EDT, Height, 134.8, kg, 03/17/23 14:50:00 EDT, Dry Weight Start Date: 11/19/23 Status: Ordered Quantity: 30.0 Unit: tablet Repeat number: 2 nortriptyline 10 mg oral capsule 20 mg, 2, capsule, By Mouth, Daily at bedtime, Replaces amitriptyline, # 60 capsule, Refills 5, Tot. Refills 5, Maintenance, 05/21/23 1:08:00 PM EST, Route to Pharmacy Electronically, [facility] #[id number], Partial fill upon patient request [...] 1 Refills, Maintenance, 08/26/23 3:36:00 PM EDT, [id number], 180, cm, 05/21/23 12:55:00 EST, Height, 134.8, kg, 03/17/23 14:50:00 EDT, Dry Weight Start Date: 08/26/23 Status: Ordered Quantity: 90.0 Unit: capsule Repeat number: 1 Oncovite Multiple Vitamins oral tablet By Mouth, Daily, 0 Refills, Maintenance, 11/22/22 8:48:00 AM EDT, Partial fill upon patient request if the prescription is for a schedule II opioid drug. Start Date: 11/22/22 Status: Ordered Repeat number: 1 pregabalin 25 mg oral capsule 1 capsule = 25 mg, TAKE 1 CAPSULE BY MOUTH DAILY FOR 1 WEEK THEN INCREASE TO 1 CAPSULE TWICE DAILY Start Date: 10/01/24 Status: Ordered Repeat number: 1 Problem List [...] Position: Reference Physician Member Role: PCP Address: [address] [place] [address] Family [address] Telecom: Care Team Related Persons Name: SILVER RIVERA Name: HUNTER RIVERA Name: BRUCE RIVERA Insurance Providers Guarantor name: IGOR FARZANEH Health Plan Information #: 1 Payer: [employer] Payer Identifier: NA Member Number: [id number] Group Number: [id number] Subscriber Identifier: [id number] Relationship to Subscriber: self Coverage Type: NA Coverage Verification Date: NA Telecom: NA Address:
[2024-12-28 11:45] LABS: Hematocrit 43.0 % (42.0-52.0); Hemoglobin 15.0 g/dl (14.0-18.0); Mean Corpuscular HGB Conc 34.9 g/dl (31.0-36.0); Mean Corpuscular Hemoglobin 30.1 pg (27.0-33.0); Mean Corpuscular Volume 86.2 fL (80.0-98.0); NRBC Abs Auto 0.000 X10*3/uL (0.0-0.012); NRBC Pct Auto 0.0 /100WBC (0.0-0.2); Platelet Count 210 X10*3/uL (160-400); Red Blood Count 4.99 X10*6/uL (4.60-5.80); White Blood Count 7.5 X10*3/uL (4.8-10.8)
[2024-12-28 12:20] LABS: Alanine Aminotransferase 13 U/L (0-40); Albumin Level 4.4 g/dL (3.5-5.0); Alkaline Phosphatase 68 U/L (39-117); Anion Gap 12 (12-20); Aspartate Amino Transferase 23 U/L (5-37); Blood Urea Nitrogen 11 mg/dL (9-16); Calcium 9.2 mg/dL (8.4-10.2); Carbon Dioxide 28 mmol/L (22-29); Chloride 105 mmol/L (96-108); Cholesterol 248 mg/dL (<200); Estimated Glomerular Filt Rate > 60; HDL Cholesterol 30 mg/dL (>40); Potassium 3.8 mmol/L (3.3-5.1); Sodium 141 mmol/L (135-145); Total Protein 6.5 g/dL (6.5-8.0); Triglycerides 162 mg/dL (<150)
[2024-12-28 12:24] LABS: Prostate Specific Antigen 0.44 ng/mL (<0.05-4.0)
== END 2024-12-28 07:32 | disposition home or self-care (01) ==
LOC: HO.WFDLDS 07:31
PROVIDERS: Visit Provider Physician Assistant Medical
DX: M25.552 Pain in left hip (principal); M54.6 Pain in thoracic spine; M54.50 Low back pain, unspecified; G89.29 Other chronic pain; E66.01 Morbid (severe) obesity due to excess calories; Z68.41 Body mass index [BMI] 40.0-44.9, adult; E78.5 Hyperlipidemia, unspecified; F41.9 Anxiety disorder, unspecified; F42.2 Mixed obsessional thoughts and acts; I10 Essential (primary) hypertension; R06.09 Other forms of dyspnea; Z79.891 Long term (current) use of opiate analgesic; Z79.899 Other long term (current) drug therapy
CPT/HCPCS: 36415; 80053; 80061; 84153; 84443; 85027; 93005; 99212

== ENCOUNTER 2024-12-28 11:41 | Outpatient (AMB) | payer OTHER, SELFPAY ==
--- NOTE | 2024-12-28 11:43 | A.OFFPC_ITS ---
Vital Signs 12/28/24 11:47 Height 5 ft 10 in Weight 273 lb 6 oz BMI 39.2 BP 126/84 Blood Pressure Location Rt brachial Position Sitting Respiration 14 Pulse 77 Pulse Source Pulse Oximeter Temp 97.9 F Temp Source Temporal Artery Scan Pulse Oximetry (%) 97 Oxygen Delivery Method Room Air Intake Visit Reasons: review labs Intake Note: Ivan presents in the office today for follow up. Allergies duloxetine Allergy (Unknown, Verified 12/28/24 11:45) Agitated gabapentin Allergy (Unknown, Verified 12/28/24 11:45) sedation pregabalin Allergy (Unknown, Verified 12/28/24 11:45) Agitated Tobacco use date assessed: 12/28/24 Dental Screening Dental Screen Date: 12/28/24 Did you have a dental visit in the last 12 months?: Yes Did you have a dental problem in the last 6 months where you did not have access to dental care?: No Was dental information given to patient?: Patient has dentist HPI HPI Comments History of Present Illness Details This is a 44-year-old male with a past medical history of chronic back pain, chronic left hip pain, OCD and anxiety, chronic pelvic pain, hyperlipidemia, IBS, GERD and impaired fasting glucose presenting for follow up. Chronic pain- Pain control is still suboptimal, leading to ongoing symptoms affecting his mobility, characterized by difficulty standing for prolonged periods and difficulty using his right shoulder. He was doing physical therapy for his right shoulder, but due to back and hip pain he has difficulty completing these sessions. He is not ready to follow back up with Orthopedics because he has too much going on right now to address the shoulder. The patient had an extensive evaluation with multiple specialists. Dr. Hussein ordered an MRI of his left hip which showed degenerative blunting/tear at the anteromedial and anterior lateral labrum. He did PT. He has received multiple left hip injections. He had an MRI of his lumbar spine completed in March which showed some degenerative findings, and he had a consult at the spine clinic. No surgical intervention was recommended, however since that time he saw Dr. Kang at [facility] who recommend surgery for stenosis in his lower back. He has tried Lyrica (caused agitation), Gabapentin (caused sedation), meloxicam and ibuprofen for pain as well as cyclobenzaprine. He is on nortriptyline for pain and IBS. He did not tolerate side effects of amitriptyline and duloxetine. Tylenol and Voltaren gel were also ineffective. He has been seen by pain management. I am prescribing Percocet 5-325 mg 1 tablet every 8 hours as needed with 60 tablets for 30 days. He also smokes marijuana for pain relief. He had another hip injection this morning. His father recently. His girlfriend's grandmother also . They were living in her house, and there is now conflict over selling of the house since ownership is divided between 3 people. All of this has been very stressful and is exacerbating the patient's OCD and anxiety. He's been seeing a therapist at [facility]. He started exposure and response therapy four weeks ago. He's been having a lot of anxiety. His OCD is really frustrating him. They are talking about having him see a psychiatrist. He does not want to go on disability, but he did apply. Hypertension-taking Losartan 25 mg daily. Hyperlipidemia-difficulty with compliance. He has not been taking atorvastatin, and his LDL cholesterol is 186. Saw colorectal surgeon regarding rectal mass. Reports he diagnosed with hemorrhoids. States he was referred to [facility] gastroenterology anew for IBS. Colonoscopy is up-to-date. Patient says that he put on a pulse oximeter that belonged to his father, and it was 93 or 94%, but it increase when he took deep breaths, but it made him anxiou s, and he feels like he may be having some shortness of breath with exertion. He thinks it is because he is deconditioned. 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 He was in good shape, and now he does not feel like that is the case. He has been very limited in what he can do for activity because of his chronic pain. He also says that he gets very anxious about it which may contribute to this. Denies chest pain, dizziness, leg swelling, calf pain, palpitations, syncope. He does smoke marijuana. He does not smoke cigarettes. CBC and CMP normal today. ROS: Constitutional: No unexplained weight loss, fever, chills or night sweats. Eyes: No vision changes, blurry vision, double vision, eye pain, eye redness, eye discharge. ENT: No hearing loss, sneezing, congestion, runny nose or sore throat. Respiratory: No cough, wheezing, sputum production or hemoptysis. Cardiovascular: No chest pain, chest pressure or chest discomfort. No pa lpitations or pedal edema. Gastrointestinal: No blood in stools, vomiting or diarrhea. Chronic abdominal pain. Genitourinary: No dysuria, hematuria, urinary frequency. Neurologic: No headache, dizziness, syncope Musculoskeletal: See HPI Hematologic/Lymphatics: No bleeding or bruising. No painful lymph nodes. Skin: No rash Endocrine: No cold or heat intolerance. No polyuria or polydipsia. Psychiatric: No SI/HI. Physical exam: Constitutional: Alert, in no distress. Head: Normocephalic. Eyes: Pupils are equal, round and reactive to light. Extraocular muscles intact. Neck: Supple, Full range of motion. No lymphadenopathy. No palpable thyroid masses. Respiratory: Clear to auscultation. Cardiovascular: S1 S2 regular. No murmurs. Gastrointestinal: Abdomen soft, non-tender, non-distended. Normal bowel sounds. No palpable masses. Skin: No rashes Extremities: Warm and well perfused. No clubbing, cyanosis or edema. Intact peripheral pulses bilaterally. Psychiatric: Normal mood and affect [facility] Medical History (Updated 12/28/24 @ 17:00 by IRVING Abbasi) Dyspnea Routine physical examination Right shoulder pain Right hip pain Mass of perianal area Essential hypertension Hyperlipidemia OCD (obsessive compulsive disorder) Thoracic back pain IFG (impaired fasting glucose) Chronic back pain Obesity Anxiety Chronic left hip pain Chronic pelvic pain in male Hypertension GERD (gastroesophageal reflux disease) Surgical History Hx of hernia repair History of esophagogastroduodenoscopy (EGD) Hx of colonoscopy Family History Mother Diabetes Cancer OCD (obsessive compulsive disorder) Father Pacemaker Cancer Other FH: mental illness Social History (Updated 12/28/24 @ 11:47 by Iram Guardado MA) Household Members: Other Housing: House Alcohol intake: current Comment: rarely Patient Tobacco Use Status: Former Tobacco user Tobacco use type: Cigarette Cigarette Packs Per Day: 1 Years Smoked: 15 e-Cigarette/Vaping Use: Never Used Second Hand Smoke Exposure: No Substance Use Type: Marijuana service: No Current occupational status: unemployed 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 Current occupational exposures/hazards: No Cognitive needs: No Hearing needs: No Vision needs: No Questionnaire Thrive Questionnaire Date Thrive assessed: 11/12/24 I am a: Patient What is your living situation today?: I have a place to live, but I am worried about losing it in the future Within the past 12 months, did the food you bought not last and you didn't have the money to get more?: I choose not to answer this question Within the past 12 months, did you worry whether your food would run out before you got money to buy more?: I choose not to answer this question Do you have trouble paying for medicines?: I choose not to answer this question Do you have trouble getting transportation to medical appointments?: I choose not to answer this question Do you have trouble paying your heating and electricity bill?: I choose not to answer this question Do you have trouble taking care of your child, family member or friend?: I choose not to answer this question Do you have trouble with day-to-day activities such as bathing, preparing meals, shopping, managing finances, etc.?: I choose not to answer this question Are you currently unemployed and looking for a job?: I choose not to answer this question Are you interested in more education?: I choose not to answer this question Please select the resources that you would like help with: None Currently or been in a relationship where the following occur: I choose not to answer THRIVE Score: 1 CAL-7 AMB Questionnaire CAL-7 Date CAL - 7 assessed: 11/12/24 Source: Developed by Drs. Julian Lawrence, Julieta Munoz, Feng Marte and colleagues, with an educational silvestre from [employer]. Physical exam (Primary Care) Vital Signs: Last Vital Signs Temp 97.9 F 12/28/24 11:47 Pulse 77 12/28/24 11:47 Resp 14 12/28/24 11:47 BP 126/84 12/28/24 11:47 Pulse Ox 97 12/28/24 11:47 Oxygen Delivery Method Room Air 12/28/24 11:47 BMI result Body Mass Index 39.2 Tobacco/Smoking Status: Tobacco use Status Tobacco use date assessed 12/28/24 12/28/24 11:51 Patient Tobacco Use Status Former Tobacco user 12/28/24 11:47 Tobacco use type Cigarette 12/28/24 11:47 e-Cigarette/Vaping Use Never Used 12/28/24 11:47 Thrive Assessment: Date of Thrive Assessment Date Thrive assessed 11/12/24 12/28/24 11:45 Currently or been in a relationship where the following occur: I choose not to answer Office Procedures EKG Details: EKG shows normal sinus rhythm with sinus arrhythmia. Reviewed with Dr. Mack. [id number], Complete Coding Level of Care Code Est Pt Level 4 (79899) Complex EM visit Add On G2211 Diagnoses Chronic left hip pain M25.552; G89.29 Chronic midline thoracic back pain M54.6; G89.29 Chronicity: chronic Back pain laterality: midline Chronic bilateral low back pain without sciatica M54.50; G89.29 Back pain location: low back pain Back pain laterality: bilateral Sciatica presence: without sciatica Class 3 severe obesity due to excess calories without serious comorbidity with body mass index (BMI) of 40.0 to 44.9 in adult E66.01; Z68.41 Obesity type: due to excess calories Obesity classification: adult class 3 (BMI >= 40) Serious obesity comorbidity presence: without serious comorbidity Body mass index: BMI 40.0-44.9 Anxiety F41.9 Mixed obsessional thoughts and acts F42.2 Obsessive-compulsive disorder type: mixed obsessional thoughts and acts Hyperlipidemia E78.5 Essential hypertension I10 Dyspnea on exertion R06.09 Dyspnea type: dyspnea on exertion CPT Codes EKG - CPT: [id number], Complete ([id number]) Assessment & Plan Assessment & Plan (1) Chronic left hip pain: Code(s): M25.552 - Pain in left hip; G89.29 - Other chronic pain Category: Medical (2) Thoracic back pain: Code(s): M54.6 - Pain in thoracic spine Category: Medical Qualifiers: Chronicity: chronic Back pain laterality: midline Qualified Code(s): M54.6 - Pain in thoracic spine; G89.29 - Other chronic pain (3) Chronic back pain: Code(s): M54.9 - Dorsalgia, unspecified; G89.29 - Other chronic pain Category: Medical Qualifiers: Back pain location: low back pain Back pain laterality: bilateral Sciatica presence: without sciatica Qualified Code(s): M54.50 - Low back pain, unspecified; G89.29 - Other chronic pain (4) Obesity: Code(s): E66.9 - Obesity, unspecified Category: Medical Qualifiers: Obesity type: due to excess calories Obesity classification: adult class 3 (BMI >= 40) Serious obesity comorbidity presence: without serious comorbidity Body mass index: BMI 40.0-44.9 Qualified Code(s): E66.01 - Morbid (severe) obesity due to excess calories; Z68.41 - Body mass index [BMI] 40.0- 44.9, adult (5) Anxiety: Code(s): F41.9 - Anxiety disorder, unspecified Category: Medical (6) OCD (obsessive compulsive disorder): Code(s): F42.9 - Obsessive-compulsive disorder, unspecified Category: Medical Qualifiers: Obsessive-compulsive disorder type: mixed obsessional thoughts and acts Qualified Code(s): F42.2 - Mixed obsessional thoughts and acts (7) Hyperlipidemia: Code(s): E78.5 - Hyperlipidemia, unspecified Category: Medical (8) Essential hypertension: Code(s): I10 - Essential (primary) hypertension Category: Medical (9) Dyspnea: Code(s): R06.00 - Dyspnea, unspecified Category: Medical Qualifiers: Dyspnea type: dyspnea on exertion Qualified Code(s): R06.09 - Other forms of dyspnea Plan Chronic pain-continue nortriptyline. Continue Percocet 5-325-1 tablet every 8 hours as needed with 60 tablets for 30 days. Discussed it is habit forming and a controlled substance. Do not drive, operate heavy machinery or drink alcohol with this medicine. Followed by Orthopedics and physiatry. He will follow up with Dr. Kang in February to discuss surgery further. Chronic pain exacerbates OCD and anxiety. He continues therapy, and he is going to see a psychiatrist. Essential Hypertension: Continue losartan 25 mg daily. Monitor blood pressure regularly and incorporate necessary dietary and lifestyle modifications. Side effects reviewed with patient. Irritable Bowel Syndrome: Currently managed with Nortriptyline and diet. He has been referred to [facility]. Hyperlipidemia: We reviewed the risks associated with hyperlipidemia. He will start atorvastatin. He is concerned about developing worsening pain on the medicine so he will start with half of a 40 mg tablet daily. Return for labs in 6-8 weeks. Stopped the medication if there are increase body pains, muscle weakness or other side effects. Dyspnea: EKG nonischemic. CBC and CMP normal. Normal pulse ox today and currently asymptomatic. PE very unlikely. Euvolemic on exam. This may be associated with anxiety, marijuana smoking, deconditioning and obesity. I will check a chest x-ray. We discussed obtaining echo, stress test, PFT. He would like to call if symptoms worsen to do this testing and monitor for now. He is trying to exercise, and he started eating healthy again to lose weight. If he develops chest pain he will go to the ER. Follow up in 3 months. Orders: Orders AMB EKG-In Office Today R06.00 - Dyspnea, unspecified XR chest 2V Today R06.00 - Dyspnea, unspecified
[2024-12-28 11:47] VITALS: BP 126/84; PULSE 77; RESP 14; TEMP 36.6; O2SAT 97; BMI 39.2
== END 2024-12-28 12:30 | disposition home or self-care (01) ==
LOC: HO.HMCFM 11:42
PROVIDERS: PCP Physician Assistant Medical; Visit Provider Physician Assistant Medical
DX: M25.552 Pain in left hip (principal); G89.29 Other chronic pain; M54.6 Pain in thoracic spine; M54.50 Low back pain, unspecified; E66.01 Morbid (severe) obesity due to excess calories; Z68.41 Body mass index [BMI] 40.0-44.9, adult; F41.9 Anxiety disorder, unspecified; F42.2 Mixed obsessional thoughts and acts; E78.5 Hyperlipidemia, unspecified; I10 Essential (primary) hypertension; R06.09 Other forms of dyspnea

== ENCOUNTER 2025-04-12 09:11 | Outpatient (AMB) | payer OTHER, SELFPAY ==
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
[2025-04-12 09:20] VITALS: BP 138/84; PULSE 81; RESP 15; TEMP 36.6; O2SAT 96; BMI 40.8
--- OUTSIDE RECORDS SUMMARY | 2025-04-12 09:58 | XMS_ITS | Clinical Summary ---
Author Organization [facility] [address] [facility] Address [address] [place] [address] Phone Care Team Providers Care Video Editor Name Role Phone Glendy Dunne Primary Care Provider [phone] Surgical History Surgery Date Site/Laterality Comments ESOPHAGOGASTRODUODENOSCOPY [...] Health Maintenance Due Date Last Done Comments Colorectal Cancer Screening: Colonoscopy 1978 Hepatitis B Vaccines (1 of 3 - 19+ 3-dose series) 1997 Pneumococcal Vaccine: Pediatrics (0 to 5 Years) and At-Risk Patients (6 to 49 Years) (1 of 2 - PCV) 1997 DTaP,Tdap,and Td Vaccines (2 - Td or Tdap) 07/23/2020 07/23/2010 Cholesterol Screening (Lipid Panel) 05/06/2022 HIV Screening 05/06/2022 Hepatitis C Screening 05/06/2022 Social Influencers of Health Screening 05/06/2022 Depression Screening 06/03/2024 COVID-19 Vaccine (1 - 2023-2 5 season) 2025 Influenza Vaccine (#1) 2025 5, 04/16/2014 RSV Immunization Adult Patients (1 - 1-dose 75+ series) 2053 HIB Vaccines Aged Out No longer eligi [...] patient's age to complete this topic Insurance [facility] Care Teams Video Editor Relationship Specialty Start Date End Date Glendy Dunne PA [address] [place] [id number] PCP - General Physician Management Scientist 09/17/24
== END 2025-04-12 10:01 | disposition home or self-care (01) ==
LOC: HO.HMCFM 09:12
PROVIDERS: PCP Physician Assistant Medical; Visit Provider Physician Assistant Medical
DX: M25.552 Pain in left hip (principal); E66.01 Morbid (severe) obesity due to excess calories; Z68.41 Body mass index [BMI] 40.0-44.9, adult; M54.50 Low back pain, unspecified; M54.6 Pain in thoracic spine; J31.0 Chronic rhinitis; K64.8 Other hemorrhoids; I10 Essential (primary) hypertension; F41.9 Anxiety disorder, unspecified; E78.00 Pure hypercholesterolemia, unspecified; Z23 Encounter for immunization

== ENCOUNTER → 2025-04-12 09:11 | Outpatient (BNVA) | payer OTHER, SELFPAY | PROVIDERS: PCP Physician Assistant Medical; Visit Provider Physician Assistant Medical | DX: M25.552 Pain in left hip (principal); G89.29 Other chronic pain; Z23 Encounter for immunization; M54.6 Pain in thoracic spine; M54.50 Low back pain, unspecified; E66.01 Morbid (severe) obesity due to excess calories; Z68.41 Body mass index [BMI] 40.0-44.9, adult; F41.9 Anxiety disorder, unspecified; F42.2 Mixed obsessional thoughts and acts; E78.00 Pure hypercholesterolemia, unspecified; I10 Essential (primary) hypertension; J31.0 Chronic rhinitis; K64.8 Other hemorrhoids; Z79.891 Long term (current) use of opiate analgesic; Z79.899 Other long term (current) drug therapy | CPT/HCPCS: 90471; 90656; 99212 ==